=== PATIENT | female | born 1995 | race Caucasian/White ===

== ENCOUNTER → 2018-07-25 16:06 | Outpatient (CLI) | payer OTHER, MEDICAID, SELFPAY ==
[2018-07-25 17:56] LABS: HCG Quantitative /Beta subunit < 2.39 mIU/mL
== END ==
PROVIDERS: Visit Provider Obstetrics & Gynecology
DX: N91.2 Amenorrhea, unspecified (principal)
CPT/HCPCS: 36415; 84702

== ENCOUNTER → 2019-01-08 12:09 | Outpatient (CLI) | payer OTHER, MEDICAID, SELFPAY ==
[2019-01-08 15:09] LABS: Luteinizing Hormone 8.21 mIU/mL
[2019-01-08 15:24] LABS: Free T3, Triiodothyronine Free 4.35 pg/mL (2.77-5.27)
[2019-01-08 15:26] LABS: Prolactin 14.8 ng/mL (3.0-18.6)
[2019-01-08 15:38] LABS: Thyroid Stimulating Hormone 1.59 uIU/mL (0.47-4.68)
[2019-01-08 15:42] LABS: Testosterone 61.5 ng/dL (5.71-77.0)
== END ==
DX: N97.0 Female infertility associated with anovulation (principal)
CPT/HCPCS: 36415; 83001; 83002; 84146; 84403; 84439; 84443; 84481

== ENCOUNTER → 2019-01-23 15:53 | Outpatient (CLI) | payer OTHER, MEDICAID, SELFPAY ==
[2019-01-23 19:24] LABS: Progesterone, Total 1.12 ng/mL
== END ==
DX: N97.0 Female infertility associated with anovulation (principal)
CPT/HCPCS: 36415; 84144

== ENCOUNTER 2019-04-01 17:56 | Emergency (ER) | payer OTHER, MEDICAID, SELFPAY ==
[2019-04-01 17:58] VITALS: BP 116/70; PULSE 86; RESP 18; TEMP 36.4; O2SAT 98
--- NOTE | 2019-04-01 18:04 | DI.US.S_ITS ---
PROCEDURE: US OB <= 14 WEEKS FETUS INDICATIONS: SPOTTING; BACK PAIN OUTSIDE/PRIOR DATING DATA: Last menstrual period (LMP): Unknown. LMP-based estimated date of delivery (LUBNA): Unknown. First dating scan (date and location): 04/01/19. Estimated date of delivery (LUBNA) from first dating scan: n/a . TECHNIQUE: Real-time scanning was performed of the fetuses and maternal pelvic organs, with image documentation. Endovaginal scanning: Performed for better visualization of the fetuses and maternal adnexal structures. COMPARISON: None. FINDINGS: General: Single gestational sac is identified measuring 1.3 cm corresponding to 6 weeks one day. There is no pole or crown-rump length identified. Measurement variability in dating: +/- 4 weeks by LMP, +/- 7 days by mean sac diameter (use before 6 weeks gestation if crown-rump length unable to be measured), +/- 5 days by crown-rump length (up to 8 weeks 6 days gestation), +/- 7 days by crown-rump length (up to 13 weeks 6 days gestation). Maternal organs: Right ovary is not well seen. The left ovary is unremarkable.. Limited images through the kidneys demonstrate no hydronephrosis. IMPRESSION: 1. Intrauterine gestational sac correspond to 6 weeks one day. No pole or crown-rump length is identified. Recommend correlation with beta hCG levels intravertebral imaging followup is recommended to document progression or stability such as blighted ovum. Dictated by: Sunshine De La Cruz M.D. on 04/01/2019 at 18:49 Approved by: Sunshine De La Cruz M.D. on 04/01/2019 at 18:51
--- NOTE | 2019-04-01 18:17 | ED.PREGNANCY ---
HPI - General Chief complaint: Vaginal Bleeding Stated complaint: BACK PAIN SPOTTING Time Seen by Provider: 04/01/19 18:13 Source: patient Mode of arrival: ambulatory Limitations: no limitations History of Present Illness HPI Narrative: 23-year-old female, known presents with some minor spotting and pelvic pain. She is not dizzy nor weak or lightheaded. She denies any dysuria, frequency or urgency. Onset (ago): hour(s) Pain Consistency: constant Location: pelvis Severity: mild Quality: Aching and Cramping Relieving factors: none Exacerbating factors: none Related Data Allergies Allergy/AdvReac Type Severity Reaction Status Date / Time venom-honey bee Allergy Severe SEIZURE-HAWA Verified 01/08/19 11:45 [bee venom (honey bee)] H Review of Systems Constitutional Denies chills, Denies fever(s), Denies lethargy and Denies weakness Eyes Denies change in vision, Denies eye discharge, Denies irritation and Denies loss of vision ENT Ears, Nose, Mouth, and Throat: Denies change in voice, Denies neck pain and Denies sore throat Cardiovascular Denies chest pain, Denies irregular heart rhythm, Denies lightheadedness, Denies palpitations, Denies dyspnea, Denies dyspnea on exertion and Denies orthopnea Respiratory Denies cough, Denies dyspnea, Denies dyspnea on exertion and Denies wheezing Gastrointestinal Gastrointestinal: Reports abdominal pain, Denies change in bowel habits, Denies diarrhea, Denies nausea and Denies vomiting Genitourinary Reports abnormal vaginal bleeding, Denies hematuria, Denies flank pain, Denies urinary incontinence and Denies urinary urgency Musculoskeletal Denies neck pain Integumentary/Breasts Denies pruritus, Denies erythema, Denies rash and Denies wounds Neurologic Denies confusion, Denies loss of vision and Denies weakness Psychiatric Denies anxiety, Denies confusion, Denies depression, Denies homicidal ideation and Denies suicidal ideation Endocrine Denies palpitations Hematologic/Lymphatic Denies easy bruising Allergic/Immunologic Denies wheezing PMFSH - Past Medical History Medical history: Reports non-contributory Surgical history: Reports non-contributory Psychiatric history: Reports no psych history Family history: Reports no significant family history Exam Narrative Exam Narrative: GENERAL: [[age]] year old patient appears stated age. Well-nourished, well-developed patient, in mild distress. HEAD: Atraumatic. Normocephalic. EYES: Pupils equal round and reactive. Extraocular motions intact. No scleral icterus. No injection or drainage. ENT: Nose without bleeding, purulent drainage. Throat without erythema, tonsillar hypertrophy or exudate. Airway patent. NECK: Trachea midline. Non tender CARDIOVASCULAR: Regular rate and rhythm without murmurs, gallops, or rubs. RESPIRATORY: Clear to auscultation. Breath sounds equal bilaterally. No wheezes, rales, or rhonchi. GASTROINTESTINAL: Abdomen soft, non-tender, nondistended. EXTREMITIES: No edema or joint tenderness. BACK: Nontender without deformity or crepitance. No flank tenderness. NEURO: AOx3. SKIN: No rash or erythema of visible areas Initial Vital Signs Initial Vital Signs: Vital Signs Temperature 97.6 F 04/01/19 17:58 Pulse Rate 86 04/01/19 17:58 Respiratory Rate 18 04/01/19 17:58 Blood Pressure 116/70 04/01/19 17:58 Pulse Oximetry 98 04/01/19 17:58 Course Orders Ordered: ED Orders 04/01/19 18:03 ABO RH Type Stat Complete Blood Count AUTO DIFF Stat Comprehensive Metabolic Panel Stat 04/01/19 18:04 US OB <= 14 weeks fetus Stat Beta HCG, Quant [HCG Quantitative] Stat Vital Signs - 8 hr 04/01/19 17:58 Temperature 97.6 F Pulse Rate 86 Respiratory Rate 18 Blood Pressure 116/70 Pulse Oximetry 98 MDM - OB/Uterine Contractions Lab Data Result diagrams: 04/01/19 18:16 04/01/19 18:16 Lab Results 04/01/19 04/01/19 04/01/19 Range/Units 18:16 18:16 18:16 WBC 8.4 (4.5-11.0) X10^3/uL RBC 4.49 (4.0-5.2) X10^6/uL Hgb 13.1 (12.0-16.0) g/dL Hct 39.0 (36-46) % MCV 86.8 (80-100) fL MCH 29.1 (26-34) PG MCHC 33.6 (30-36) % RDW 13.2 (11.6-14.8) % Plt Count 223 (150-400) X10^3/uL Neut % (Auto) 53.4 (50-75) % Lymph % (Auto) 38.7 (25-40) % [place] % (Auto) 6.5 (3-14) % Eos % (Auto) 1.0 L (2-4) % Baso % (Auto) 0.4 (0-2) % Neut # (Auto) 4500 (2620-3752) /uL Lymph # (Auto) 3300 (9957-7539) /uL [place] # (Auto) 500 (0-900) /uL Eos # (Auto) 100 (0-450) /uL Baso # (Auto) 0 (0-100) /uL Sodium 140 (137-145) mmol/L Potassium 3.8 (3.4-5.1) mmol/L Chloride 103 (98-107) mmol/L Carbon Dioxide 25 (22-32) mmol/L BUN 14 (7-17) mg/dL Creatinine 0.60 (0.52-1.04) mg/dL Estimated GFR > 60.0 (>60) mL/min BUN/Creatinine Ratio 23.3 H (6-22) Glucose 106 H (70-100) mg/dL Calcium 9.5 (8.4-10.2) mg/dL Total Bilirubin 0.4 (0.2-1.3) mg/dL AST 21 (14-36) IU/L ALT 27 (9-52) IU/L Alkaline Phosphatase 36 L (38-126) U/L Total Protein 7.7 (6.3-8.2) g/dL Albumin 4.6 (3.5-5.0) g/dL Globulin 3.1 (1.7-4.1) g/dL Albumin/Globulin Ratio 1.5 (1.0-2.8) HCG, Quant mIU/mL Urine RBC (0-5/HPF) Urine WBC (0-5/HPF) Ur Squamous Epith Cells (0-5/HPF) Urine Bacteria (None) Ur Culture Indicated? Blood Type A Positive 04/01/19 04/01/19 Range/Units 18:16 19:10 WBC (4.5-11.0) X10^3/uL RBC (4.0-5.2) X10^6/uL Hgb (12.0-16.0) g/dL Hct (36-46) % MCV (80-100) fL MCH (26-34) PG MCHC (30-36) % RDW (11.6-14.8) % Plt Count (150-400) X10^3/uL Neut % (Auto) (50-75) % Lymph % (Auto) (25-40) % [place] % (Auto) (3-14) % Eos % (Auto) (2-4) % Baso % (Auto) (0-2) % Neut # (Auto) (5922-4030) /uL Lymph # (Auto) (8473-1702) /uL [place] # (Auto) (0-900) /uL Eos # (Auto) (0-450) /uL Baso # (Auto) (0-100) /uL Sodium (137-145) mmol/L Potassium (3.4-5.1) mmol/L Chloride (98-107) mmol/L Carbon Dioxide (22-32) mmol/L BUN (7-17) mg/dL Creatinine (0.52-1.04) mg/dL Estimated GFR (>60) mL/min BUN/Creatinine Ratio (6-22) Glucose (70-100) mg/dL Calcium (8.4-10.2) mg/dL Total Bilirubin (0.2-1.3) mg/dL AST (14-36) IU/L ALT (9-52) IU/L Alkaline Phosphatase (38-126) U/L Total Protein (6.3-8.2) g/dL Albumin (3.5-5.0) g/dL Globulin (1.7-4.1) g/dL Albumin/Globulin Ratio (1.0-2.8) HCG, Quant 87297 mIU/mL Urine RBC 5-10/hpf H (0-5/HPF) Urine WBC 1-5/hpf (0-5/HPF) Ur Squamous Epith Cells 5-10 /hpf H (0-5/HPF) Urine Bacteria Moderate (10-30) H (None) Ur Culture Indicated? Cult not indicated Blood Type Point of Care Testing Test Results Positive Urine Dip Bedside Urine Glucose Negative Bedside Urine Bilirubin + 1 Bedside Urine Ketone +/- 5 Urine Specific [place] 1.030 Bedside Urine Occult Blood +++ Bedside Urine pH 6.0 Bedside Urine Protein - Negative Bedside Urine Urobilinogen - Negative Bedside Urine Nitrite - Negative Bedside Urine Leukocytes - Negative Esterase Imaging Data US - abdomen: Radiologist's impression: [address] [address] Ultrasound Report Signed Patient: Evelyn Bryson RMR#: [id number] : 1995Acct:[id number] Age/Sex: 23 / FDate of Service: 04/01/19 Loc: ED Accession Number: [id number] Procedure: US OB <= 14 weeks fetus Ordering Provider: Jill Solis MD PROCEDURE: US OB <= 14 WEEKS FETUS INDICATIONS: SPOTTING; BACK PAIN OUTSIDE/PRIOR DATING DATA: Last menstrual period (LMP): Unknown. LMP-based estimated date of delivery (LUBNA): Unknown. First dating scan (date and location): 04/01/19. Estimated date of delivery (LUBNA) from first dating scan: n/a . TECHNIQUE: Real-time scanning was performed of the fetuses and maternal pelvic organs, with image documentation. Endovaginal scanning: Performed for better visualization of the fetuses and maternal adnexal structures. COMPARISON: None. FINDINGS: General: Single gestational sac is identified measuring 1.3 cm corresponding to 6 weeks one day. There is no pole or crown-rump length identified. Measurement variability in dating: +/- 4 weeks by LMP, +/- 7 days by mean sac diameter (use before 6 weeks gestation if crown-rump length unable to be measured), +/- 5 days by crown-rump length (up to 8 weeks 6 days gestation), +/- 7 days by crown-rump length (up to 13 weeks 6 days gestation). Maternal organs: Right ovary is not well seen. The left ovary is unremarkable.. Limited images through the kidneys demonstrate no hydronephrosis. IMPRESSION: 1. Intrauterine gestational sac correspond to 6 weeks one day. No pole or crown-rump length is identified. Recommend correlation with beta hCG levels intravertebral imaging followup is recommended to document progression or stability such as blighted ovum. Dictated by: Sunshine De La Cruz M.D. on 04/01/2019 at 18:49 Approved by: Sunshine De La Cruz M.D. on 04/01/2019 at 18:51 Discharge Plan Departure Patient Disposition: Home Clinical Impression: Vaginal bleeding Discharge Date/Time: 04/01/19 20:04 Interventions: ED Discharge Assessment Last Done: 04/01/19 20:00 Instructions: DI for Vaginal Bleeding During Activity Restrictions/Additional Instructions: *You have been diagnosed with [vaginal spotting early in ] *What to do: *Follow up with your primary care provider in 2-3 days, call for an appointment. Let them know you were seen in the Emergency Department and that we ask that you be seen in follow up *Return to ER if you should have any new, worsening or concerning symptoms, such as [increased pain, fever over 101 F, bleeding through more than 1 pad per hour]
[2019-04-01 18:28] LABS: Add Manual Diff / Slide Review NO; Basophils Absolute Auto 0 /uL (0-100); Basophils Percent Auto 0.4 % (0-2); Eosinophils Absolute Auto 100 /uL (0-450); Hemoglobin 13.1 g/dL (12.0-16.0); Lymphocytes Absolute Auto 3300 /uL (1100-4500); Lymphocytes Percent Auto 38.7 % (25-40); Mean Corpuscular HGB Conc 33.6 % (30-36); Mean Corpuscular Hemoglobin 29.1 PG (26-34); Mean Corpuscular Volume 86.8 fL (80-100); Monocytes Absolute Auto 500 /uL (0-900); Monocytes Percent Auto 6.5 % (3-14); Neutrophils Absolute Auto 4500 /uL (1500-7000); Neutrophils Percent Auto 53.4 % (50-75); Platelet Count 223 X10^3/uL (150-400); Red Blood Cell Count 4.49 X10^6/uL (4.0-5.2); Red Cell Distribution Width 13.2 % (11.6-14.8); White Blood Cell Count 8.4 X10^3/uL (4.5-11.0)
[2019-04-01 18:39] LABS: Alanine Aminotransferase 27 IU/L (9-52); Albumin 4.6 g/dL (3.5-5.0); Albumin Globulin Ratio 1.5 (1.0-2.8); Alkaline Phosphatase 36 U/L (38-126); Aspartate Aminotransferase 21 IU/L (14-36); BUN Creatinine Ratio 23.3 (6-22); Bilirubin Total 0.4 mg/dL (0.2-1.3); Blood Urea Nitrogen 14 mg/dL (7-17); Calcium 9.5 mg/dL (8.4-10.2); Carbon Dioxide 25 mmol/L (22-32); Chloride 103 mmol/L (98-107); Estimated Glomerular Filt Rate > 60.0 mL/min (>60); Globulin 3.1 g/dL (1.7-4.1); Glucose 106 mg/dL (70-100); HEMOLYSIS < 15 (0-50); Potassium 3.8 mmol/L (3.4-5.1); Sodium 140 mmol/L (137-145); Total Protein 7.7 g/dL (6.3-8.2)
[2019-04-01 18:56] LABS: HCG Quantitative /Beta subunit 12058 mIU/mL
[2019-04-01 19:10] VITALS: BP 144/80; PULSE 55; RESP 16; O2SAT 94
[2019-04-01 19:48] LABS: RBC Urine 5-10/HPF (0-5/HPF); Squamous Epithelial Cell Urine 5-10 /HPF (0-5/HPF); WBC Urine 1-5/HPF (0-5/HPF)
[2019-04-01 19:49] LABS: Bacteria Urine Moderate (10-30); Culture Indicated Urine Cult Not Indicated
--- NOTE | 2019-04-02 05:54 | ED_ITS ---
HPI - General Chief complaint: Vaginal Bleeding Stated complaint: BACK PAIN SPOTTING Time Seen by Provider: 04/01/19 18:13 Source: patient Mode of arrival: ambulatory Limitations: no limitations History of Present Illness HPI Narrative: 23-year-old female, known presents with some minor spotting and pelvic pain. She is not dizzy nor weak or lightheaded. She denies any dysuria, frequency or urgency. Onset (ago): hour(s) Pain Consistency: constant Location: pelvis Severity: mild Quality: Aching and Cramping Relieving factors: none Exacerbating factors: none Related Data Allergies Allergy/AdvReac Type Severity Reaction Status Date / Time venom-honey bee Allergy Severe SEIZURE-HAWA Verified 01/08/19 11:45 [bee venom (honey bee)] H Review of Systems Constitutional Denies chills, Denies fever(s), Denies lethargy and Denies weakness Eyes Denies change in vision, Denies eye discharge, Denies irritation and Denies loss of vision ENT Ears, Nose, Mouth, and Throat: Denies change in voice, Denies neck pain and Denies sore throat Cardiovascular Denies chest pain, Denies irregular heart rhythm, Denies lightheadedness, Denies palpitations, Denies dyspnea, Denies dyspnea on exertion and Denies orthopnea Respiratory Denies cough, Denies dyspnea, Denies dyspnea on exertion and Denies wheezing Gastrointestinal Gastrointestinal: Reports abdominal pain, Denies change in bowel habits, Denies diarrhea, Denies nausea and Denies vomiting Genitourinary Reports abnormal vaginal bleeding, Denies hematuria, Denies flank pain, Denies urinary incontinence and Denies urinary urgency Musculoskeletal Denies neck pain Integumentary/Breasts Denies pruritus, Denies erythema, Denies rash and Denies wounds Neurologic Denies confusion, Denies loss of vision and Denies weakness Psychiatric Denies anxiety, Denies confusion, Denies depression, Denies homicidal ideation and Denies suicidal ideation Endocrine Denies palpitations Hematologic/Lymphatic Denies easy bruising Allergic/Immunologic Denies wheezing PMFSH - Past Medical History Medical history: Reports non-contributory Surgical history: Reports non-contributory Psychiatric history: Reports no psych history Family history: Reports no significant family history Exam Narrative Exam Narrative: GENERAL: [[age]] year old patient appears stated age. Well-nourished, well-developed patient, in mild distress. HEAD: Atraumatic. Normocephalic. EYES: Pupils equal round and reactive. Extraocular motions intact. No scleral icterus. No injection or drainage. ENT: Nose without bleeding, purulent drainage. Throat without erythema, tonsillar hypertrophy or exudate. Airway patent. NECK: Trachea midline. Non tender CARDIOVASCULAR: Regular rate and rhythm without murmurs, gallops, or rubs. RESPIRATORY: Clear to auscultation. Breath sounds equal bilaterally. No wheezes, rales, or rhonchi. GASTROINTESTINAL: Abdomen soft, non-tender, nondistended. EXTREMITIES: No edema or joint tenderness. BACK: Nontender without deformity or crepitance. No flank tenderness. NEURO: AOx3. SKIN: No rash or erythema of visible areas Initial Vital Signs Initial Vital Signs: Vital Signs Temperature 97.6 F 04/01/19 17:58 Pulse Rate 86 04/01/19 17:58 Respiratory Rate 18 04/01/19 17:58 Blood Pressure 116/70 04/01/19 17:58 Pulse Oximetry 98 04/01/19 17:58 Course Orders Ordered: ED Orders 04/01/19 18:03 ABO RH Type Stat Complete Blood Count AUTO DIFF Stat Comprehensive Metabolic Panel Stat 04/01/19 18:04 US OB <= 14 weeks fetus Stat Beta HCG, Quant [HCG Quantitative] Stat Vital Signs - 8 hr 04/01/19 17:58 Temperature 97.6 F Pulse Rate 86 Respiratory Rate 18 Blood Pressure 116/70 Pulse Oximetry 98 MDM - OB/Uterine Contractions Lab Data Result diagrams: 04/01/19 18:16 04/01/19 18:16 Lab Results 04/01/19 04/01/19 04/01/19 Range/Units 18:16 18:16 18:16 WBC 8.4 (4.5-11.0) X10^3/uL RBC 4.49 (4.0-5.2) X10^6/uL Hgb 13.1 (12.0-16.0) g/dL Hct 39.0 (36-46) % MCV 86.8 (80-100) fL MCH 29.1 (26-34) PG MCHC 33.6 (30-36) % RDW 13.2 (11.6-14.8) % Plt Count 223 (150-400) X10^3/uL Neut % (Auto) 53.4 (50-75) % Lymph % (Auto) 38.7 (25-40) % [place] % (Auto) 6.5 (3-14) % Eos % (Auto) 1.0 L (2-4) % Baso % (Auto) 0.4 (0-2) % Neut # (Auto) 4500 (3803-4069) /uL Lymph # (Auto) 3300 (9583-5707) /uL [place] # (Auto) 500 (0-900) /uL Eos # (Auto) 100 (0-450) /uL Baso # (Auto) 0 (0-100) /uL Sodium 140 (137-145) mmol/L Potassium 3.8 (3.4-5.1) mmol/L Chloride 103 (98-107) mmol/L Carbon Dioxide 25 (22-32) mmol/L BUN 14 (7-17) mg/dL Creatinine 0.60 (0.52-1.04) mg/dL Estimated GFR > 60.0 (>60) mL/min BUN/Creatinine Ratio 23.3 H (6-22) Glucose 106 H (70-100) mg/dL Calcium 9.5 (8.4-10.2) mg/dL Total Bilirubin 0.4 (0.2-1.3) mg/dL AST 21 (14-36) IU/L ALT 27 (9-52) IU/L Alkaline Phosphatase 36 L (38-126) U/L Total Protein 7.7 (6.3-8.2) g/dL Albumin 4.6 (3.5-5.0) g/dL Globulin 3.1 (1.7-4.1) g/dL Albumin/Globulin Ratio 1.5 (1.0-2.8) HCG, Quant mIU/mL Urine RBC (0-5/HPF) Urine WBC (0-5/HPF) Ur Squamous Epith Cells (0-5/HPF) Urine Bacteria (None) Ur Culture Indicated? Blood Type A Positive 04/01/19 04/01/19 Range/Units 18:16 19:10 WBC (4.5-11.0) X10^3/uL RBC (4.0-5.2) X10^6/uL Hgb (12.0-16.0) g/dL Hct (36-46) % MCV (80-100) fL MCH (26-34) PG MCHC (30-36) % RDW (11.6-14.8) % Plt Count (150-400) X10^3/uL Neut % (Auto) (50-75) % Lymph % (Auto) (25-40) % [place] % (Auto) (3-14) % Eos % (Auto) (2-4) % Baso % (Auto) (0-2) % Neut # (Auto) (9216-1865) /uL Lymph # (Auto) (3098-7471) /uL [place] # (Auto) (0-900) /uL Eos # (Auto) (0-450) /uL Baso # (Auto) (0-100) /uL Sodium (137-145) mmol/L Potassium (3.4-5.1) mmol/L Chloride (98-107) mmol/L Carbon Dioxide (22-32) mmol/L BUN (7-17) mg/dL Creatinine (0.52-1.04) mg/dL Estimated GFR (>60) mL/min BUN/Creatinine Ratio (6-22) Glucose (70-100) mg/dL Calcium (8.4-10.2) mg/dL Total Bilirubin (0.2-1.3) mg/dL AST (14-36) IU/L ALT (9-52) IU/L Alkaline Phosphatase (38-126) U/L Total Protein (6.3-8.2) g/dL Albumin (3.5-5.0) g/dL Globulin (1.7-4.1) g/dL Albumin/Globulin Ratio (1.0-2.8) HCG, Quant 19957 mIU/mL Urine RBC 5-10/hpf H (0-5/HPF) Urine WBC 1-5/hpf (0-5/HPF) Ur Squamous Epith Cells 5-10 /hpf H (0-5/HPF) Urine Bacteria Moderate (10-30) H (None) Ur Culture Indicated? Cult not indicated Blood Type Point of Care Testing Test Results Positive Urine Dip Bedside Urine Glucose Negative Bedside Urine Bilirubin + 1 Bedside Urine Ketone +/- 5 Urine Specific [place] 1.030 Bedside Urine Occult Blood +++ Bedside Urine pH 6.0 Bedside Urine Protein - Negative Bedside Urine Urobilinogen - Negative Bedside Urine Nitrite - Negative Bedside Urine Leukocytes - Negative Esterase Imaging Data US - abdomen: Radiologist's impression: [address] [address] Ultrasound Report Signed Patient: Evelyn Bryson RMR#: [id number] : 1995Acct:[id number] Age/Sex: 23 / FDate of Service: 04/01/19 Loc: ED Accession Number: [id number] Procedure: US OB <= 14 weeks fetus Ordering Provider: Jill Solis MD PROCEDURE: US OB <= 14 WEEKS FETUS INDICATIONS: SPOTTING; BACK PAIN OUTSIDE/PRIOR DATING DATA: Last menstrual period (LMP): Unknown. LMP-based estimated date of delivery (LUBNA): Unknown. First dating scan (date and location): 04/01/19. Estimated date of delivery (LUBNA) from first dating scan: n/a . TECHNIQUE: Real-time scanning was performed of the fetuses and maternal pelvic organs, with image documentation. Endovaginal scanning: Performed for better visualization of the fetuses and maternal adnexal structures. COMPARISON: None. FINDINGS: General: Single gestational sac is identified measuring 1.3 cm corresponding to 6 weeks one day. There is no pole or crown-rump length identified. Measurement variability in dating: +/- 4 weeks by LMP, +/- 7 days by mean sac diameter (use before 6 weeks gestation if crown-rump length unable to be measured), +/- 5 days by crown-rump length (up to 8 weeks 6 days gestation), +/- 7 days by crown-rump length (up to 13 weeks 6 days gestation). Maternal organs: Right ovary is not well seen. The left ovary is unremarkable.. Limited images through the kidneys demonstrate no hydronephrosis. IMPRESSION: 1. Intrauterine gestational sac correspond to 6 weeks one day. No pole or crown-rump length is identified. Recommend correlation with beta hCG levels intravertebral imaging followup is recommended to document progression or stability such as blighted ovum. Dictated by: Sunshine De La Cruz M.D. on 04/01/2019 at 18:49 Approved by: Sunshine De La Cruz M.D. on 04/01/2019 at 18:51 Discharge Plan Departure Patient Disposition: Home Clinical Impression: Vaginal bleeding Discharge Date/Time: 04/01/19 20:04 Interventions: ED Discharge Assessment Last Done: 04/01/19 20:00 Instructions: DI for Vaginal Bleeding During Activity Restrictions/Additional Instructions: *You have been diagnosed with [vaginal spotting early in ] *What to do: *Follow up with your primary care provider in 2-3 days, call for an appointment. Let them know you were seen in the Emergency Department and that we ask that you be seen in follow up *Return to ER if you should have any new, worsening or concerning symptoms, such as [increased pain, fever over 101 F, bleeding through more than 1 pad per hour]
== END 2019-04-01 20:04 | disposition home or self-care (01) ==
PROVIDERS: Emergency Medicine; Emergency Provider Emergency Medicine
DX: O20.8 Other hemorrhage in early pregnancy (principal); Z3A.01 Less than 8 weeks gestation of pregnancy
CPT/HCPCS: 36415; 76801; 76817; 80053; 81003; 81015; 81025; 84702; 85025; 86900; 86901; 99283; 99284

== ENCOUNTER 2019-08-11 11:14 | Emergency (ER) | payer OTHER, MEDICAID, SELFPAY ==
[2019-08-11 11:23] VITALS: BP 140/74; PULSE 79; RESP 16; TEMP 36.6; O2SAT 99; BMI 42.5
[2019-08-11 11:40] LABS: RBC Urine None Seen (0-5/HPF)
[2019-08-11 11:53] LABS: Bacteria Urine Moderate (10-30); Squamous Epithelial Cell Urine 5-10 /HPF (0-5/HPF); WBC Urine 1-5/HPF (0-5/HPF)
--- NOTE | 2019-08-11 12:06 | DI.US.S_ITS ---
PROCEDURE: US PELVIC COMPLETE INDICATIONS: PAIN; SAB 3 MONTHS AGO TECHNIQUE: Real-time scanning was performed of the pelvic organs, with image documentation. Additional endovaginal scanning was necessary due to incomplete visualization of the adnexal and endometrial structures by transabdominal scanning. COMPARISON: None. FINDINGS: Transabdominal scanning: Limited scanning through the kidneys shows no hydronephrosis. No pathologic free abdominal or pelvic fluid. Endovaginal scanning: Uterus: Uterus is normal in size at 8.8 x 5.2 x 6.3 cm. The endometrium measures 5.3 mm in combined thickness. No increased vascularity within the endometrium to suggest retained products of conception. Ovaries: The right ovary measures 3.2 x 1.4 x 2.4 cm and has a normal echotexture. The left ovary measures 2.4 x 2.2 x 2.7 cm. A complex cyst is visualized within the left ovary which measures 1.9 x 1.5 x 1.8 cm. The bladder is partially fluid-filled. There is an irregularly marginated 1.2 x 1.4 x 1.1 cm exophytic vascular mass arising from the posterior bladder wall. IMPRESSION: 1. No endometrial abnormality to suggest retained products of conception or other findings to explain patient's pelvic pain. 2. Complex left ovarian cyst suggesting either endometrioma or hemorrhagic cyst. 6-12 month sonographic followup recommended to ensure resolution. 3. Exophytic bladder mass as above. Differential considerations include bladder polyp versus neoplasm. Urologic consultation and direct visualization recommended. Dictated by: Adrianna Britton M.D. on 08/11/2019 at 12:09 Approved by: Adrianna Britton M.D. on 08/11/2019 at 12:22
--- NOTE | 2019-08-11 12:36 | ED.ABDPAIN ---
HPI - Abdominal Pain <Jack MontgomeryLATRELL EstebanP - Last Filed: 08/11/19 20:43> General Chief Complaint: Abdominal Pain Stated Complaint: bad cramp for about a week Time Seen by Provider: 08/11/19 11:43 Source: patient Mode of arrival: Ambulatory Limitations: no limitations History of Present Illness HPI narrative: This is a 23-year-old female, nonsmoker, who presents to ED with her young sons with chief complain of bilateral low abdominal pain and suprapubic pain for 1 week. Patient states had a miscarriage in April 2019 and no further intervention was needed to complete spontaneous AB. Patient reports she had light period in 06/06/19 for 2 days. Since then, she had not had menses and she states usually it has been irregular. Patient reports slight urinary frequency but denies dysuria, hematuria, flank pain. She denies fever, chills, nausea but had 1 episode of emesis this morning. She denies unusual vaginal discharge and is not concerned for STIs. No self-treatment has been attempted at home for this discomfort. Related Data Previous Rx's Medication Instructions Recorded ondansetron 4 mg PO Q6-8H PRN #7 tab 08/11/19 Allergies Allergy/AdvReac Type Severity Reaction Status Date / Time venom-honey bee Allergy Severe SEIZURE-HAWA Verified 08/11/19 11:23 [bee venom (honey bee)] H Review of Systems <Jack MelgarADAMARIS mccall - Last Filed: 08/11/19 20:43> Review of Systems Narrative: General: Denies fever, chills, fatigue, malaise, sweats. HEENT: Denies sinus pain, ear pain, sore throat, difficulty swallowing, dizziness. Respiratory: Denies dyspnea, cough, wheezing, hemoptysis, sputum. Cardiovascular: Denies chest pain, palpitations, orthopnea, edema. Gastrointestinal: Had 1 episode of emesis this morning. Reports bilateral low abdominal pain and suprapubic pain. Denies nausea, diarrhea, constipation, melena. : Reports urinary frequency. Denies dysuria, incontinence, hematuria, urinary retention. Musculoskeletal: Denies weakness, joint pain or bony pain. Skin: Denies rash, skin lesions, or other. Neurologic: Denies weakness, headache, numbness, change in speech, confusion, seizures, incoordination. Psychiatric: No concerning psychosocial issues. 12-point review of systems is negative except for those stated above. Patient History <ADAMARIS Jensen - Last Filed: 08/11/19 20:43> Surgical History Status post delivery (01/06/12) Status post delivery (12/27/14) Status post tonsillectomy and adenoidectomy Social History Smoking Status: Never smoker Smoking Status: Never smoker alcohol intake frequency: 0-2 drinks per day Substance Use Type: does not use Exam <ADAMARIS Jensen - Last Filed: 08/11/19 20:43> Narrative Exam Narrative: GEN: Alert, oriented x 3, well appearing and nourished, and in no acute distress. Head: Normal cephalic, atraumatic. No scalp or temporal tenderness, palpable mass or rash. EYES: Pupils are equal, round, and reactive to light and accommodation. Extraocular muscles are intact bilaterally. There is no subconjunctival hemorrhage, exudate and sclera non-icteric. ENT: Bilateral auditory canals and tympanic membranes clear. Hearing grossly intact. Nose without bleeding, purulent discharge or deviation. Facial sinuses nontender to palpate. Mucous membrane moist, no mucosal lesion. Throat without erythema, tonsillar hypertrophy or exudate. Uvula in midline, airway patent. Neck: Trachea in midline. No JVD, non-tender without lymphadenopathy. No masses or thyroid megaly. Supple, non-tender and no meningeal signs. CARDIAC: Normal regular rate and rhythm without murmurs, gallops, or rubs. No chest wall tenderness. No peripheral edema, cyanosis or pallor. Capillary refill is less than 2 seconds. RESPIRATORY: Lungs are clear to auscultate bilaterally. No cough, wheezes, rales, or rhonchi. No stridor, respiratory distress, increase work of breathing, or accessary muscle used. ABD: Tender to palpate in bilateral low abdomen and suprapubic region. Abdomen soft and non-distended. No guarding or rebound tenderness to palpate. Bowel sounds are normal in all 4 quadrants. There is no palpable masses or organomegaly. EXT: Full painless ROM of all extremities with no loss of sensation, strength, effusion or edema. SKIN: Warm, dry, normal color for patient. No erythema, lesions or rash over visible areas. BACK: Nontender without deformity or crepitance. No flank tenderness. NEUROLOGICAL: Alert and oriented to place, time and person. Sensation and motor function intact bilaterally. No facial droops, dysphasia. PSYCHIATRIC: Good judgement and reason, without hallucinations, abnormal affect or abnormal behaviors during the examination. Initial Vital Signs Initial Vital Signs: Vital Signs Temperature 98 F 08/11/19 11:23 Pulse Rate 79 08/11/19 11:23 Respiratory Rate 16 08/11/19 11:23 Blood Pressure 140/74 08/11/19 11:23 Pulse Oximetry 99 08/11/19 11:23 <Jennifer Beverly DO - Last Filed: 08/12/19 07:34> Initial Vital Signs Initial Vital Signs: Vital Signs Temperature 98 F 08/11/19 11:23 Pulse Rate 79 08/11/19 11:23 Respiratory Rate 16 08/11/19 11:23 Blood Pressure 140/74 08/11/19 11:23 Pulse Oximetry 99 08/11/19 11:23 Scores <ADAMARIS Jensen - Last Filed: 08/11/19 20:43> GCS Irvin coma scale eye opening: Spontaneous [place] coma scale verbal response: Orientated [place] coma scale motor response: Obey commands [place] coma scale total score: 15 Course <ADAMARIS Jensen - Last Filed: 08/11/19 20:43> Orders Ordered: Discontinued Medications Acetaminophen (Tylenol) 650 mg PO NOW ONE Stop: 08/11/19 11:55 Last Admin: 08/11/19 12:40 Dose: 650 mg Documented by: KEIRA Ibuprofen (Advil) 800 mg PO NOW ONE Stop: 08/11/19 11:55 Last Admin: 08/11/19 12:40 Dose: 800 mg Documented by: KEIRA Vital Signs Vital signs: Vital Signs - 8 hr 08/11/19 13:37 08/11/19 14:56 Pulse Rate 79 74 Respiratory Rate 16 16 Blood Pressure [Right Arm] 139/68 156/92 H Pulse Oximetry 100 100 <Jennifer Beverly DO - Last Filed: 08/12/19 07:34> Orders Ordered: Discontinued Medications Acetaminophen (Tylenol) 650 mg PO NOW ONE Stop: 08/11/19 11:55 Last Admin: 08/11/19 12:40 Dose: 650 mg Documented by: KEIRA Ibuprofen (Advil) 800 mg PO NOW ONE Stop: 08/11/19 11:55 Last Admin: 08/11/19 12:40 Dose: 800 mg Documented by: KEIRA Vital Signs Vital signs: Vital Signs - 8 hr 08/11/19 13:37 08/11/19 14:56 Pulse Rate 79 74 Respiratory Rate 16 16 Blood Pressure [Right Arm] 139/68 156/92 H Pulse Oximetry 100 100 MDM - Abdominal Pain <Jack ADAMARIS Potts - Last Filed: 08/11/19 20:43> Differential Diagnosis Differential diagnosis: Likely abdominal pain, acute appendicitis, endometriosis and other (Ovarian cysts, UTI) Medical Records Attestation: I reviewed the patient's medical records. Lab Data Attestation: I reviewed the patient's lab results. Result diagrams: 08/11/19 15:33 08/11/19 15:33 Labs: Lab Results 08/11/19 08/11/19 08/11/19 Range/Units 11:23 15:33 15:33 WBC 5.9 (4.5-11.0) X10^3/uL RBC 4.93 (4.0-5.2) X10^6/uL Hgb 14.0 (12.0-16.0) g/dL Hct 41.4 (36-46) % MCV 83.9 (80-100) fL MCH 28.3 (26-34) PG MCHC 33.8 (30-36) % RDW 12.8 (11.6-14.8) % Plt Count 176 (150-400) X10^3/uL Neut % (Auto) 47.9 L (50-75) % Lymph % (Auto) 44.4 H (25-40) % [place] % (Auto) 6.1 (3-14) % Eos % (Auto) 1.0 L (2-4) % Baso % (Auto) 0.6 (0-2) % Neut # (Auto) 2800 (8721-5509) /uL Lymph # (Auto) 2600 (0703-1701) /uL [place] # (Auto) 400 (0-900) /uL Eos # (Auto) 100 (0-450) /uL Baso # (Auto) 0 (0-100) /uL Sodium 141 (137-145) mmol/L Potassium 3.8 (3.4-5.1) mmol/L Chloride 106 (98-107) mmol/L Carbon Dioxide 24 (22-32) mmol/L BUN 16 (7-17) mg/dL Creatinine 0.70 (0.52-1.04) mg/dL Estimated GFR > 60.0 (>60) mL/min BUN/Creatinine Ratio 22.9 H (6-22) Glucose 83 (70-100) mg/dL Calcium 9.6 (8.4-10.2) mg/dL Urine RBC None seen (0-5/HPF) Urine WBC 1-5/hpf (0-5/HPF) Ur Squamous Epith Cells 5-10 /hpf H (0-5/HPF) Urine Bacteria Moderate (10-30) H (None) Ur Culture Indicated? Culture not indicate Micro UA Comment Point of care testing: Point of Care Testing Test Results Negative Urine Dip Bedside Urine Glucose Negative Bedside Urine Bilirubin - Negative Bedside Urine Ketone - Negative Urine Specific [place] 1.015 Bedside Urine Occult Blood - Negative Bedside Urine pH 7.5 Bedside Urine Protein +/- 15 Bedside Urine Urobilinogen +/- 1mg Bedside Urine Nitrite - Negative Bedside Urine Leukocytes +/- 15 Esterase Imaging Data US-pelvic: Radiologist's impression: [address] [address] Ultrasound Report Signed Patient: Evelyn Bryson R#: [id number] : 1995Acct:[id number] Age/Sex: 23 / FDate of Service: 08/11/19 Loc: ED Accession Number: [id number] Procedure: US pelvic complete Ordering Provider: Jack Potts PROCEDURE: US PELVIC COMPLETE INDICATIONS: PAIN; SAB 3 MONTHS AGO TECHNIQUE: Real-time scanning was performed of the pelvic organs, with image documentation. Additional endovaginal scanning was necessary due to incomplete visualization of the adnexal and endometrial structures by transabdominal scanning. COMPARISON: None. FINDINGS: Transabdominal scanning: Limited scanning through the kidneys shows no hydronephrosis. No pathologic free abdominal or pelvic fluid. Endovaginal scanning: Uterus: Uterus is normal in size at 8.8 x 5.2 x 6.3 cm. The endometrium measures 5.3 mm in combined thickness. No increased vascularity within the endometrium to suggest retained products of conception. Ovaries: The right ovary measures 3.2 x 1.4 x 2.4 cm and has a normal echotexture. The left ovary measures 2.4 x 2.2 x 2.7 cm. A complex cyst is visualized within the left ovary which measures 1.9 x 1.5 x 1.8 cm. The bladder is partially fluid-filled. There is an irregularly marginated 1.2 x 1.4 x 1.1 cm exophytic vascular mass arising from the posterior bladder wall. IMPRESSION: 1. No endometrial abnormality to suggest retained products of conception or other findings to explain patient's pelvic pain. 2. Complex left ovarian cyst suggesting either endometrioma or hemorrhagic cyst. 6-12 month sonographic followup recommended to ensure resolution. 3. Exophytic bladder mass as above. Differential considerations include bladder polyp versus neoplasm. Urologic consultation and direct visualization recommended. Dictated by: Adrianna Britton M.D. on 08/11/2019 at 12:09 Approved by: Adrianna Britton M.D. on 08/11/2019 at 12:22 CT scan - abdomen: Radiologist's impression: [place] [address] CT Scan Report Signed Patient: Evelyn Bryson RMR#: [id number] : 1995Acct:[id number] Age/Sex: 23 / FDate of Service: 08/11/19 Loc: ED Accession Number: [id number] Procedure: CT abdomen pelvis w con Ordering Provider: Jack Potts PROCEDURE: CT ABDOMEN PELVIS W CON INDICATIONS: US-exophytic bladder mass appreciated, bilateral low abd iesha TECHNIQUE: After the administration of intravenous contrast, 5 mm thick sections acquired from the diaphragm to the symphysis. 5 mm coronal and sagittal reformats were acquired. For radiation dose reduction, the following was used: automated exposure control, adjustment of mA and/or kV according to patient size. COMPARISON: None. FINDINGS: Image quality: Excellent. ABDOMEN: Lung bases: Lung bases are clear. Heart size is normal. Solid organs: Liver is normal in size and enhancement. A 7 mm diameter hypodensity is present within hepatic segment V which may represent a simple hepatic cyst but is incompletely characterized. Gallbladder is unremarkable. Biliary system is non dilated. Pancreas enhances normally. Spleen is normal in size and enhancement. No adrenal nodules. Kidneys demonstrate normal size and enhancement, without hydronephrosis. Peritoneum and bowel: Bowel loops demonstrate normal wall thickness and caliber. The appendix is thin walled. No free fluid or air. Nodes and vessels: No retroperitoneal or mesenteric adenopathy by size criteria. Aorta and inferior vena cava are normal in size. Miscellaneous: No ventral hernias. PELVIS: Genitourinary: Bladder wall thickness is normal. An exophytic 0.8 x 1.4 cm mass is present within the left dome of the bladder (series 4, image 39). Uterus is grossly unremarkable. There is a 1.8 cm left ovarian cyst. Miscellaneous: No inguinal hernias or adenopathy. Bones: No suspicious bony lesions. No vertebral body compression fractures. IMPRESSION: 1. No acute intra-abdominal findings. Normal appendix. 2. Exophytic bladder mass as above. Urologic consultation and direct visualization recommended. Dictated by: Adrianna Britton M.D. on 08/11/2019 at 14:04 Approved by: Adrianna Britton M.D. on 08/11/2019 at 14:07 [facility] Narrative Medical decision making narrative: This is a 23-year-old female who presents to ED with bilateral low abdominal discomfort and suprapubic pain with mild urinary frequency. Patient denies constitutional symptoms. Patient had a miscarriage in April 2019 and had very light menses on the following month. Urine HCG was negative. At this time for moderate bacteria and squamous epithelial cells. Pelvic ultrasound was ordered initially to rule out ovarian cyst rupture, torsion, retained product of conception. Ultrasound test shows complex left ovarian cyst also indicated irregularly marginated exophytic vascular mass arising from the posterior bladder wall. In addition, CT of abdomen pelvis test was obtained and it showed normal appendectomy, exophytic 0.8x1.4 cm mass within the left dome of the bladder, 1.8 cm of left ovarian cyst, and 7 mm diameter hypodensity within hepatic segment which may be a simple hepatic cyst without acute intra-abdominal findings. Patient's blood test for CBC and BMP were unremarkable. Urologist specialist, Dr. Deng was consulted and discussed the above findings and advised to follow up by calling the office on Monday to make an appointment for further evaluation and possible treatment for bladder mass. Vital signs been stable in ED. Patient provided with written report of imaging tests to accompany with her. CT and ultrasound images were pushed to used up. Patient advised to take [id number] Tylenol and or Motrin as needed for discomfort. Small dose of Zofran has been transmitted for as needed use for nausea and vomiting. Return precautions were discussed with the patient and patient verbalized understanding. <Jennifer Beverly, DO - Last Filed: 08/12/19 07:34> Lab Data Labs: Lab Results 08/11/19 08/11/19 08/11/19 Range/Units 11:23 15:33 15:33 WBC 5.9 (4.5-11.0) X10^3/uL RBC 4.93 (4.0-5.2) X10^6/uL Hgb 14.0 (12.0-16.0) g/dL Hct 41.4 (36-46) % MCV 83.9 (80-100) fL MCH 28.3 (26-34) PG MCHC 33.8 (30-36) % RDW 12.8 (11.6-14.8) % Plt Count 176 (150-400) X10^3/uL Neut % (Auto) 47.9 L (50-75) % Lymph % (Auto) 44.4 H (25-40) % [place] % (Auto) 6.1 (3-14) % Eos % (Auto) 1.0 L (2-4) % Baso % (Auto) 0.6 (0-2) % Neut # (Auto) 2800 (5928-0248) /uL Lymph # (Auto) 2600 (7424-9138) /uL [place] # (Auto) 400 (0-900) /uL Eos # (Auto) 100 (0-450) /uL Baso # (Auto) 0 (0-100) /uL Sodium 141 (137-145) mmol/L Potassium 3.8 (3.4-5.1) mmol/L Chloride 106 (98-107) mmol/L Carbon Dioxide 24 (22-32) mmol/L BUN 16 (7-17) mg/dL Creatinine 0.70 (0.52-1.04) mg/dL Estimated GFR > 60.0 (>60) mL/min BUN/Creatinine Ratio 22.9 H (6-22) Glucose 83 (70-100) mg/dL Calcium 9.6 (8.4-10.2) mg/dL Urine RBC None seen (0-5/HPF) Urine WBC 1-5/hpf (0-5/HPF) Ur Squamous Epith Cells 5-10 /hpf H (0-5/HPF) Urine Bacteria Moderate (10-30) H (None) Ur Culture Indicated? Culture not indicate Micro UA Comment Point of care testing: Point of Care Testing Test Results Negative Urine Dip Bedside Urine Glucose Negative Bedside Urine Bilirubin - Negative Bedside Urine Ketone - Negative Urine Specific [place] 1.015 Bedside Urine Occult Blood - Negative Bedside Urine pH 7.5 Bedside Urine Protein +/- 15 Bedside Urine Urobilinogen +/- 1mg Bedside Urine Nitrite - Negative Bedside Urine Leukocytes +/- 15 Esterase Discharge Plan Departure Patient Disposition: Home Clinical Impression: Lower abdominal pain, Cyst of left ovary, Bladder mass Discharge Date/Time: 08/11/19 16:14 Instructions: DI for Ovarian Cyst Activity Restrictions/Additional Instructions: You have been diagnosed with [bilateral abdominal pain and suprapubic pain. According to ultrasound and abdominal/pelvic CT, a mass in posterior bladder wall and 1.8cm L ovarian cyst were noted. Incidental finding of hepatic segment cyst from CT. It is suggested that repeat pelvic ultrasound to follow-up on ovarian cyst in 6-12 months.]. What to do: *Take your medications as directed. Please take [id number] Tylenol and or Motrin as needed for discomfort. Zofran has been transmitted to [facility] in [place] for as needed use for nausea and vomiting. *Follow up with your primary care provider in 2-3 days, call for an appointment. Please call [facility] to reestablish PCP on Monday. Please call Urology Clinic on Monday to follow up for an evaluation and possible treatment with the findings from CT and ultrasound. Please take written CT and ultrasound result for this appointment. Let them know you were seen in the ED and that we asked you to be seen in follow up for findings as above. *Return to ED if you have any new, worsening, or concerning symptoms, such as [chest pain, breathing difficulty, unable to tolerate fluids, fever, or any acute concerns]. Prescriptions: New ondansetron 4 mg tablet,disintegrating 4 mg PO Q6-8H PRN (Reason: nausea and vomiting) Qty: 7 RF: 0 Referrals: Audi Deng MD [Non-Staff] -
[2019-08-11] MEDS: ACETAMINOPHEN 325 MG TABLET 650 MG PO (12:40)
[2019-08-11] MEDS: IBUPROFEN 400 MG TABLET 800 MG PO (12:40)
[2019-08-11 13:37] VITALS: BP 139/68; PULSE 79; RESP 16; O2SAT 100
--- NOTE | 2019-08-11 13:44 | DI.CT.S_ITS ---
PROCEDURE: CT ABDOMEN PELVIS W CON INDICATIONS: US-exophytic bladder mass appreciated, bilateral low abd iesha TECHNIQUE: After the administration of intravenous contrast, 5 mm thick sections acquired from the diaphragm to the symphysis. 5 mm coronal and sagittal reformats were acquired. For radiation dose reduction, the following was used: automated exposure control, adjustment of mA and/or kV according to patient size. COMPARISON: None. FINDINGS: Image quality: Excellent. ABDOMEN: Lung bases: Lung bases are clear. Heart size is normal. Solid organs: Liver is normal in size and enhancement. A 7 mm diameter hypodensity is present within hepatic segment V which may represent a simple hepatic cyst but is incompletely characterized. Gallbladder is unremarkable. Biliary system is non dilated. Pancreas enhances normally. Spleen is normal in size and enhancement. No adrenal nodules. Kidneys demonstrate normal size and enhancement, without hydronephrosis. Peritoneum and bowel: Bowel loops demonstrate normal wall thickness and caliber. The appendix is thin walled. No free fluid or air. Nodes and vessels: No retroperitoneal or mesenteric adenopathy by size criteria. Aorta and inferior vena cava are normal in size. Miscellaneous: No ventral hernias. PELVIS: Genitourinary: Bladder wall thickness is normal. An exophytic 0.8 x 1.4 cm mass is present within the left dome of the bladder (series 4, image 39). Uterus is grossly unremarkable. There is a 1.8 cm left ovarian cyst. Miscellaneous: No inguinal hernias or adenopathy. Bones: No suspicious bony lesions. No vertebral body compression fractures. IMPRESSION: 1. No acute intra-abdominal findings. Normal appendix. 2. Exophytic bladder mass as above. Urologic consultation and direct visualization recommended. Dictated by: Adrianna Britton M.D. on 08/11/2019 at 14:04 Approved by: Adrianna Britton M.D. on 08/11/2019 at 14:07
[2019-08-11 14:56] VITALS: BP 156/92; PULSE 74; RESP 16; O2SAT 100
[2019-08-11 15:39] LABS: Add Manual Diff / Slide Review NO; Basophils Absolute Auto 0 /uL (0-100); Basophils Percent Auto 0.6 % (0-2); Eosinophils Absolute Auto 100 /uL (0-450); Hematocrit 41.4 % (36-46); Lymphocytes Absolute Auto 2600 /uL (1100-4500); Lymphocytes Percent Auto 44.4 % (25-40); Mean Corpuscular HGB Conc 33.8 % (30-36); Mean Corpuscular Hemoglobin 28.3 PG (26-34); Mean Corpuscular Volume 83.9 fL (80-100); Monocytes Absolute Auto 400 /uL (0-900); Monocytes Percent Auto 6.1 % (3-14); Neutrophils Absolute Auto 2800 /uL (1500-7000); Neutrophils Percent Auto 47.9 % (50-75); Platelet Count 176 X10^3/uL (150-400); Red Blood Cell Count 4.93 X10^6/uL (4.0-5.2); Red Cell Distribution Width 12.8 % (11.6-14.8); White Blood Cell Count 5.9 X10^3/uL (4.5-11.0)
[2019-08-11 15:51] LABS: BUN Creatinine Ratio 22.9 (6-22); Blood Urea Nitrogen 16 mg/dL (7-17); Calcium 9.6 mg/dL (8.4-10.2); Carbon Dioxide 24 mmol/L (22-32); Chloride 106 mmol/L (98-107); Estimated Glomerular Filt Rate > 60.0 mL/min (>60); Glucose 83 mg/dL (70-100); HEMOLYSIS < 15 (0-50); Potassium 3.8 mmol/L (3.4-5.1); Sodium 141 mmol/L (137-145)
== END 2019-08-11 16:14 | disposition home or self-care (01) ==
PROVIDERS: Emergency Medicine; Emergency Provider Nurse Practitioner Family
DX: N83.202 Unspecified ovarian cyst, left side (principal); N32.9 Bladder disorder, unspecified; R10.30 Lower abdominal pain, unspecified
CPT/HCPCS: 36415; 74177; 76830; 76856; 80048; 81003; 81015; 81025; 85025; 87077; 87086; 87186; 99284; Q9967

== ENCOUNTER 2019-10-05 00:56 | Emergency (ER) | payer OTHER, MEDICAID, SELFPAY ==
[2019-10-05 01:02] VITALS: BP 141/85; PULSE 87; RESP 20; TEMP 36.6; O2SAT 98
--- NOTE | 2019-10-05 01:23 | PC.NURSE ---
Pt with recent bladder surgery on Monday, catheter emptied at 1400 yesterday, no urine output since.
--- NOTE | 2019-10-05 01:31 | ED_ITS ---
HPI - Female Genitourinary General Chief complaint: Urogenital-Female Stated complaint: has catheter, not working (post op) Time Seen by Provider: 10/05/19 01:00 Source: patient Mode of arrival: Ambulatory Limitations: no limitations History of Present Illness HPI Narrative: 24-year-old nonsmoker with history of bladder cancer and recent surgery presents with a Mai catheter problem. She states she was in her [facility] state of health until about 3:00 p.m. when her Mai stopped draining. She has developed increasing suprapubic pain and now it is unbearable. She denies any fever chills nor nausea or vomiting. MD Complaint: other Onset (ago): hour(s) Location: suprapubic Severity: moderate Quality: Aching Duration: constant Relieving factors: none Exacerbating factors: movement Urinary symptoms: Difficulty Urinating Associated symptoms: denies other symptoms Related Data Previous Rx's Medication Instructions Recorded ondansetron 4 mg PO Q6-8H PRN #7 tab 08/11/19 Allergies Allergy/AdvReac Type Severity Reaction Status Date / Time venom-honey bee Allergy Severe SEIZURE-HAWA Verified 08/11/19 11:23 [bee venom (honey bee)] H Review of Systems Constitutional Constitutional: Denies chills, Denies fatigue, Denies fever(s), Denies frequent falls, Denies lethargy and Denies weakness Eyes Eyes: Denies change in vision, Denies eye discharge, Denies irritation and Denies loss of vision ENT Ears, Nose, Mouth, and Throat: Denies change in voice, Denies dizziness, Denies neck pain, Denies sore throat and Denies throat swelling Cardiovascular Cardiovascular: Denies chest pain, Denies irregular heart rhythm, Denies lightheadedness, Denies palpitations, Denies dyspnea, Denies dyspnea on exertion and Denies orthopnea Respiratory Respiratory: Denies cough, Denies dyspnea, Denies dyspnea on exertion and Denies wheezing Gastrointestinal Gastrointestinal: Denies abdominal pain, Denies change in bowel habits, Denies diarrhea, Denies nausea and Denies vomiting Genitourinary Genitourinary: Denies hematuria, Denies flank pain, Denies urinary incontinence and Denies urinary urgency Comments: Mai catheter problem Musculoskeletal Musculoskeletal: Denies back pain, Denies muscle weakness, Denies neck pain, Denies numbness and Denies tingling Integumentary/Breasts Skin/Breast: Denies pruritus, Denies erythema, Denies rash and Denies wounds Neurologic Neurologic: Denies behavioral changes, Denies confusion, Denies dizziness, Denies frequent falls, Denies loss of vision, Denies numbness, Denies tingling and Denies weakness Psychiatric Psychiatric: Denies anxiety, Denies behavioral changes, Denies confusion, Denies depression, Denies homicidal ideation and Denies suicidal ideation Endocrine Endocrine: Denies fatigue, Denies flushing and Denies palpitations Hematologic/Lymphatic Hematologic/Lymphatic: Denies easy bruising Allergic/Immunologic Allergic/Immunologic: Denies urticaria, Denies throat swelling and Denies wheezing Patient History Medical History Eczema (Chronic ~2011) Surgical History Anesthesia (Resolved) Status post delivery (01/06/12) Status post delivery (12/27/14) Status post tonsillectomy and adenoidectomy Family History Father Suicide Mother Mental health problem Brother Asthma Brother Bernardo Roger syndrome Sister No problems noted. Grandfather Dementia Grandmother Cancer Grandfather No problems noted. Grandmother Diabetes mellitus Hypertension History of heart disease alcohol intake frequency: 0-2 drinks per day Substance Use Type: does not use Exam Narrative Exam Narrative: GEN: AOx3 and in mild distress EYES: Pupils are equal, round, and reactive to light and accommodation. Extraoccular muscles are intact bilaterally. There is no subconjunctival hemorrhage or exudate. CHEST: Lungs are clear to auscultation bilaterally and free of wheezes, rales, or rhonchi. Heart rate is regular rhythm, there are no murmurs, clicks, rubs, or gallops. There is no chest wall tenderness. ABD: Abdomen is soft and tender in the suprapubic region. There is no guarding or rebound. Bowel sounds are normal in all 4 quadrants. There is no mass or organomegaly. Mai catheter in place but not draining EXT: Full painless ROM of all extremities with no loss of sensation or strength. SKIN: Warm, pink, and dry. No erythema or rash Initial Vital Signs Initial Vital Signs: Vital Signs Temperature 98 F 10/05/19 01:02 Pulse Rate 87 10/05/19 01:02 Respiratory Rate 20 10/05/19 01:02 Blood Pressure 141/85 H 10/05/19 01:02 Pulse Oximetry 98 10/05/19 01:02 Course Course Course Narrative: Mai catheter flushed and drains 650 cc. Patient has complete resolution of symptoms and is given bedside teaching regarding how to flush. Vital Signs Vital signs: Vital Signs - 8 hr 10/05/19 01:02 Temperature 98 F Pulse Rate 87 Respiratory Rate 20 Blood Pressure 141/85 H Pulse Oximetry 98 Discharge Plan Departure Patient Disposition: Home Clinical Impression: Complication of Mai catheter Qualifiers: Encounter type: initial encounter Qualified Code(s): T83.9XXA - Unspecified complication of genitourinary prosthetic device, implant and graft, initial encounter Instructions: How to Care for Your Mai Catheter -- Female Activity Restrictions/Additional Instructions: *You have been diagnosed with [Mai catheter problem] *What to do: *Take medications as directed *Follow up with your primary care provider in 2-3 days, call for an appointment. Let them know you were seen in the Emergency Department and that we ask that you be seen in follow up *Return to ER if you should have any new, worsening or concerning symptoms Prescriptions: No Action ondansetron 4 mg tablet,disintegrating 4 mg PO Q6-8H PRN (Reason: nausea and vomiting) Qty: 7 RF: 0
--- NOTE | 2019-10-05 01:34 | PC.NURSE ---
Flushed catheter with 60cc of sterile water. Catheter flowing at this time
[2019-10-05 01:45] VITALS: BP 127/73; PULSE 64; RESP 15; O2SAT 99
== END 2019-10-05 01:47 | disposition home or self-care (01) ==
PROVIDERS: Emergency Provider Emergency Medicine
DX: T83.9XXA Unspecified complication of genitourinary prosthetic device, implant and graft, initial encounter (principal)
CPT/HCPCS: 99281

== ENCOUNTER → 2019-10-29 18:35 | Outpatient (CLI) | payer OTHER, MEDICAID, SELFPAY | PROVIDERS: Visit Provider Physician Assistant | DX: R30.0 Dysuria (principal) | CPT/HCPCS: 87086 ==

== ENCOUNTER → 2020-04-22 13:21 | Outpatient (CLI) | payer OTHER, MEDICAID, SELFPAY ==
[2020-04-22 16:50] LABS: Progesterone, Total 4.72 ng/mL
== END ==
PROVIDERS: PCP Nurse Practitioner Family; Referring Provider Obstetrics & Gynecology; Visit Provider Obstetrics & Gynecology
DX: N97.0 Female infertility associated with anovulation (principal)
CPT/HCPCS: 36415; 84144

== ENCOUNTER → 2020-04-29 13:35 | Outpatient (CLI) | payer OTHER, MEDICAID, SELFPAY ==
[2020-04-30 22:50] LABS: Progesterone, Total 8.62 ng/mL
== END ==
PROVIDERS: PCP Nurse Practitioner Family; Referring Provider Obstetrics & Gynecology; Visit Provider Obstetrics & Gynecology
DX: N97.0 Female infertility associated with anovulation (principal)
CPT/HCPCS: 36415; 84144

== ENCOUNTER → 2020-05-25 11:45 | Outpatient (CLI) | payer OTHER, MEDICAID, SELFPAY ==
[2020-05-25 13:52] LABS: Progesterone, Total 1.07 ng/mL
== END ==
PROVIDERS: Obstetrics & Gynecology; PCP Nurse Practitioner Family; Referring Provider Nurse Practitioner Family; Visit Provider Nurse Practitioner Family
DX: N97.0 Female infertility associated with anovulation (principal)
CPT/HCPCS: 36415; 84144

== ENCOUNTER → 2020-05-27 08:20 | Outpatient (CLI) | payer OTHER, MEDICAID, SELFPAY ==
[2020-05-27 10:34] LABS: Hematocrit 36.6 % (36-46); Hemoglobin 12.6 g/dL (12.0-16.0); Mean Corpuscular HGB Conc 34.6 % (30-36); Mean Corpuscular Hemoglobin 28.8 PG (26-34); Mean Corpuscular Volume 83.2 fL (80-100); Platelet Count 207 X10^3/uL (150-400); White Blood Cell Count 5.9 X10^3/uL (4.5-11.0)
[2020-05-27 11:22] LABS: Alanine Aminotransferase 23 IU/L (<35); Albumin Globulin Ratio 1.2 (1.0-2.8); Alkaline Phosphatase 43 U/L (38-126); Aspartate Aminotransferase 21 IU/L (14-36); BUN Creatinine Ratio 19.4 (6-22); Bilirubin Total 0.4 mg/dL (0.2-1.3); Blood Urea Nitrogen 12 mg/dL (7-17); Calcium 9.2 mg/dL (8.4-10.2); Carbon Dioxide 27 mmol/L (22-32); Chloride 103 mmol/L (98-107); Cholesterol 136 mg/dL (140-199); Estimated Glomerular Filt Rate > 60.0 mL/min (>60); Globulin 3.3 g/dL (1.7-4.1); Glucose 80 mg/dL (70-100); HDL Cholesterol 24 mg/dL (40-60); HEMOLYSIS < 15 (0-50); LDL Cholesterol Calculated 61 mg/dL (<100); Potassium 4.3 mmol/L (3.4-5.1); Sodium 138 mmol/L (137-145); Total Protein 7.3 g/dL (6.3-8.2); Triglycerides 254 mg/dL (35-150)
== END ==
PROVIDERS: PCP Nurse Practitioner Family; Referring Provider Nurse Practitioner Family; Visit Provider Nurse Practitioner Family
DX: Z00.00 Encounter for general adult medical examination without abnormal findings (principal); Z13.6 Encounter for screening for cardiovascular disorders
CPT/HCPCS: 36415; 80053; 80061; 85027

== ENCOUNTER → 2020-06-03 08:11 | Outpatient (CLI) | payer OTHER, MEDICAID, SELFPAY ==
--- NOTE | 2020-06-03 08:11 | DI.MRI.S_ITS ---
PROCEDURE: MR ABDOMEN WO CON INDICATIONS: abnormal liver finding CT scan TECHNIQUE: Coronal and axial HASTE, axial Betts of the abdomen. COMPARISON: [facility], CT, CT ABDOMEN PELVIS W CON, 08/11/2019, 14:38. FINDINGS: Image quality: Excellent. Other solid organs: Liver within normal limits in size. Segment 5 moderately T2 hyperintense focus measuring 0.8 cm, (4/28). Gallbladder is not distended. No gallstones. Biliary system is non dilated. Pancreas is normal in morphology. Spleen is normal in size. No adrenal nodule. Both kidneys are normal in size, without hydronephrosis. Nodes and vessels: No retroperitoneal or mesenteric adenopathy by size criteria. Aorta and inferior vena cava are normal in size. Bowel and peritoneum: Unenhanced bowel loops are normal in caliber. No free fluid. Bladder is outside the field of view. Lung bases: No basal pleural effusions. Heart size is normal. Bones and soft tissues: Small fat containing ventral hernia. Bone marrow is of normal overall signal. IMPRESSION: 1. T2 hyperintense observation in segment 5 measuring 0.8 cm. This most likely represents a benign hemangioma given its homogeneous appearance and T2 signal but is incompletely characterized without IV contrast. -recommend characterization with MRI of the liver with IV contrast or three-phase liver CT. 2. No additional hepatic lesions. Dictated by: Ayad Gaytan M.D. on 06/03/2020 at 11:00 Approved by: Ayad Gaytan M.D. on 06/03/2020 at 11:14
== END ==
PROVIDERS: PCP Nurse Practitioner Family; Referring Provider Nurse Practitioner Family; Visit Provider Nurse Practitioner Family
DX: R93.2 Abnormal findings on diagnostic imaging of liver and biliary tract (principal)
CPT/HCPCS: 74181

== ENCOUNTER → 2020-06-24 09:24 | Outpatient (CLI) | payer OTHER, MEDICAID, SELFPAY ==
[2020-06-24 10:26] LABS: Final Volume 0.5 mL; Semen 30 min. Liquification? Yes
== END ==
PROVIDERS: PCP Nurse Practitioner Family; Referring Provider Obstetrics & Gynecology; Visit Provider Obstetrics & Gynecology
DX: N97.0 Female infertility associated with anovulation (principal)
CPT/HCPCS: 58323

== ENCOUNTER 2020-07-12 12:10 | Emergency (ER) | payer OTHER, MEDICAID, SELFPAY ==
[2020-07-12 12:36] VITALS: BP 156/84; PULSE 101; RESP 18; TEMP 36.8; O2SAT 99; BMI 45.4
--- NOTE | 2020-07-12 13:02 | DI.US.S_ITS ---
PROCEDURE: US PELVIC COMPLETE INDICATIONS: IUI 18 DAYS AGO; BLEEDING, CRAMPING TECHNIQUE: Real-time scanning was performed of the pelvic organs, with image documentation. Additional endovaginal scanning was necessary due to incomplete visualization of the adnexal and endometrial structures by transabdominal scanning. COMPARISON: [facility], US, US PELVIC COMPLETE, 06/23/2020, 8:29. FINDINGS: Transabdominal scanning: Limited scanning through the kidneys shows no hydronephrosis. No pathologic free abdominal or pelvic fluid. Endovaginal scanning: Uterus: The uterus measures 9.0 x 5.0 x 5.9 centimeters. Endometrial thickness is 12.4 millimeters. No intrauterine is identified. Ovaries: The right ovary is not identified. The left ovary has a normal size and appearance. Adnexa: No fluid in the adnexa. IMPRESSION: No intrauterine is identified. Given the positive test, differential diagnosis includes completed miscarriage, early versus ectopic . Recommend following quantitative HCGs and follow-up ultrasound. Dictated by: Jose R Rey M.D. on 07/12/2020 at 14:34 Approved by: Jose R Rey M.D. on 07/12/2020 at 14:37
--- NOTE | 2020-07-12 13:05 | ED_ITS ---
HPI - <Jack Ramónstefany [facility] - Last Filed: 07/12/20 16:00> General Chief complaint: Vaginal Bleeding Stated complaint: iui bleeding after Time Seen by Provider: 07/12/20 12:40 Source: patient Mode of arrival: Family Vehicle Limitations: no limitations History of Present Illness HPI Narrative: This is a 24 year female, nonsmoker, who has past medical history significant for bladder cancer and surgery presents to ED with chief complain of vaginal bleeding and left lower quadrant pain which started 5 hours ago. Patient had IU eye procedure done on 06/24/[address] Darling. LMP 06/07/20 - 06/10/20. spon AB 1 last year. Patient reports she had 4 positive home tests this week. Patient reports bright red vaginal bleeding started as spotting and now is more heavy with small clots. Patient denies urinary symptoms like urgency, frequency, dysuria. Patient denies fever, chills, nausea or vomiting. PCP Kyle. Date of Last Menstrual Period: 06/07/20 Related Data Home Medications Medication Instructions Recorded Confirmed multivitamin 1 tab PO DAILY 10/15/19 06/24/20 Previous Rx's Medication Instructions Recorded clomiphene citrate 50 mg tablet 50 mg PO DAILY #5 tab 07/13/20 Allergies Allergy/AdvReac Type Severity Reaction Status Date / Time venom-honey bee Allergy Severe SEIZURE-HAWA Verified 07/12/20 12:41 [bee venom (honey bee)] H Review of Systems <Jack Potts [facility] - Last Filed: 07/12/20 16:00> Review of Systems Narrative: General: Denies fever, chills, fatigue, malaise, sweats. HEENT: Denies sinus pain, ear pain, sore throat, difficulty swallowing, dizziness. Respiratory: Denies dyspnea, cough, wheezing, hemoptysis, sputum. Cardiovascular: Denies chest pain, palpitations, orthopnea, edema. Gastrointestinal: See HPI : See HPI PMFSH - <Jack MelgarLATRELL mccallP - Last Filed: 07/12/20 16:00> Past Medical History Additional medical history: Bladder cancer Surgical history: Reports other (History of bladder cancer surgery) STUNNER ANIMAL history: Reports Spontaneous Date of Last Menstrual Period: 06/07/20 Psychiatric history: Reports no psych history Family History Family history: Reports no significant family history Exam <ADAMARIS Jensen - Last Filed: 07/12/20 16:00> Narrative Exam Narrative: GEN: Alert, oriented x 3, well appearing and nourished and tearful. Head: Normal cephalic, atraumatic. No scalp or temporal tenderness, palpable mass or rash. EYES: Pupils are equal, round, and reactive to light and accommodation. Extraocular muscles are intact bilaterally. There is no subconjunctival hemorrhage, exudate and sclera non-icteric. ENT: Hearing grossly intact. Nose without bleeding, purulent discharge or deviation. Mucous membrane moist, no mucosal lesion. Throat without erythema, tonsillar hypertrophy or exudate. Uvula in midline, airway patent. Neck: Trachea in midline. No JVD, non-tender without lymphadenopathy. No masses or thyroid megaly. Supple, non-tender and no meningeal signs. CARDIAC: Normal regular rate and rhythm without murmurs, gallops, or rubs. No chest wall tenderness. No peripheral edema, cyanosis or pallor. Capillary refill is less than 2 seconds. RESPIRATORY: Lungs are clear to auscultate bilaterally. No cough, wheezes, rales, or rhonchi. No stridor, respiratory distress, increase work of breathing, or accessary muscle used. ABD: Abdomen soft, nontender and non-distended. No guarding or rebound tenderness to palpate. Bowel sounds are normal in all 4 quadrants. There is no palpable masses or organomegaly. EXT: Full painless ROM of all extremities with no loss of sensation, strength, effusion or edema. SKIN: Warm, dry, normal color for patient. No erythema, lesions or rash over visible areas. BACK: Nontender without deformity or crepitance. No flank tenderness. NEUROLOGICAL: Alert and oriented to place, time and person. Sensation and motor function intact bilaterally. No facial droops, dysphasia. Initial Vital Signs Initial Vital Signs: Vital Signs Temperature 98.2 F 07/12/20 12:36 Pulse Rate 101 H 07/12/20 12:36 Respiratory Rate 18 07/12/20 12:36 Blood Pressure 156/84 H 07/12/20 12:36 Pulse Oximetry 99 07/12/20 12:36 <Anna Sawyer DO - Last Filed: 07/17/20 19:20> Initial Vital Signs Initial Vital Signs: Vital Signs Temperature 98.2 F 07/12/20 12:36 Pulse Rate 101 H 07/12/20 12:36 Respiratory Rate 18 07/12/20 12:36 Blood Pressure 156/84 H 07/12/20 12:36 Pulse Oximetry 99 07/12/20 12:36 Scores <[facility] Healthstefany [facility] - Last Filed: 07/12/20 16:00> GCS Irvin coma scale eye opening: Spontaneous Irvin coma scale verbal response: Orientated [place] coma scale motor response: Obey commands Irvin coma scale total score: 15 Course <[facility] Healthstefany [facility] - Last Filed: 07/12/20 16:00> Orders Ordered: ED Orders 07/12/20 12:56 Urine Microscopic Stat 07/12/20 13:02 US pelvic complete Stat 07/12/20 13:15 Complete Blood Count AUTO DIFF Stat HCG Quantitative /Beta subunit Stat Reevaluation(s) Reevaluation #1: Patient reports vaginal bleeding has not slow down but is not extremely heavy either. Patient denies chest pain, breathing difficulty, dizziness. Patient has intermittent nausea but declines any antiemetic medications. Lab tests and ultrasound results shared with the patient. Time: 15:17 Vital Signs Vital signs: Vital Signs - 8 hr 07/12/20 12:36 07/12/20 15:34 Temperature 98.2 F Pulse Rate 101 H 95 H Respiratory Rate 18 15 Blood Pressure 156/84 H 103/67 Pulse Oximetry 99 98 <Anna Sawyer DO - Last Filed: 07/17/20 19:20> Orders Ordered: ED Orders 07/12/20 12:56 Urine Microscopic Stat 07/12/20 13:02 US pelvic complete Stat 07/12/20 13:15 Complete Blood Count AUTO DIFF Stat HCG Quantitative /Beta subunit Stat Vital Signs Vital signs: Vital Signs - 8 hr 07/12/20 12:36 07/12/20 15:34 Temperature 98.2 F Pulse Rate 101 H 95 H Respiratory Rate 18 15 Blood Pressure 156/84 H 103/67 Pulse Oximetry 99 98 MDM - OB/Uterine Contractions <[facility] - Last Filed: 07/12/20 16:00> Differential Diagnosis Differential diagnosis: Likely other (Vaginal bleeding during 1st trimester, ectopic , complete AB) Medical Records Attestation: I reviewed the patient's medical records. Lab Data Attestation: I reviewed the patient's lab results. Result diagrams: 07/12/20 13:15 Labs: Lab Results 07/12/20 07/12/20 07/12/20 Range/Units 12:56 13:15 13:15 WBC 5.6 (4.5-11.0) X10^3/uL RBC 4.58 (4.0-5.2) X10^6/uL Hgb 13.1 (12.0-16.0) g/dL Hct 38.2 (36-46) % MCV 83.5 (80-100) fL MCH 28.6 (26-34) PG MCHC 34.3 (30-36) % RDW 12.7 (11.6-14.8) % Plt Count 219 (150-400) X10^3/uL Neut % (Auto) 50.5 (50-75) % Lymph % (Auto) 41.1 H (25-40) % [place] % (Auto) 6.4 (3-14) % Eos % (Auto) 1.6 L (2-4) % Baso % (Auto) 0.4 (0-2) % Neut # (Auto) 2800 (5665-0703) /uL Lymph # (Auto) 2300 (1102-0229) /uL [place] # (Auto) 400 (0-900) /uL Eos # (Auto) 100 (0-450) /uL Baso # (Auto) 0 (0-100) /uL HCG, Quant < 2.4 mIU/mL Urine RBC 5-10/hpf H (0-5/HPF) Urine WBC 0-1/hpf (0-5/HPF) Ur Squamous Epith Cells 0-1 /hpf (0-5/HPF) Urine Bacteria Few (2-10) H (None) Ur Culture Indicated? Cult not indicated Point of Care Testing Test Results Negative Urine Dip Bedside Urine Glucose Negative Bedside Urine Bilirubin - Negative Bedside Urine Ketone - Negative Urine Specific [place] 1.010 Bedside Urine Occult Blood +++ Bedside Urine pH 6.0 Bedside Urine Protein - Negative Bedside Urine Urobilinogen - Negative Bedside Urine Nitrite - Negative Bedside Urine Leukocytes - Negative Esterase Imaging Data US - SHIP UNLOADER: Radiologist's Impression: [address], [place] [id number] ReportSigned Patient: Kali Bryson RMR#: [id number]: [id number]:[id number]/Sex: 24 / FDate of Service: 07/12/20Loc: EDAccession Number: [id number] Procedure: US pelvic complete Ordering Provider: Jack Potts PROCEDURE: US PELVIC COMPLETE INDICATIONS: IUI 18 DAYS AGO; BLEEDING, CRAMPING TECHNIQUE: Real-time scanning was performed of the pelvic organs, with image documentation. Additional endovaginal scanning was necessary due to incomplete visualization of the adnexal and endometrial structures by transabdominal scanning. COMPARISON: [facility], , US PELVIC COMPLETE, 06/23/2020, 8:29. FINDINGS: Transabdominal scanning: Limited scanning through the kidneys shows no hydronephrosis. No pathologic free abdominal or pelvic fluid. Endovaginal scanning: Uterus: The uterus measures 9.0 x 5.0 x 5.9 centimeters. Endometrial thickness is 12.4 millimeters. No intrauterine is identified. Ovaries: The right ovary is not identified. The left ovary has a normal size and appearance. Adnexa: No fluid in the adnexa. IMPRESSION: No intrauterine is identified. Given the positive test, differential diagnosis includes completed miscarriage, early versus ectopic . Recommend following quantitative HCGs and follow-up ultrasound. Dictated by: Jose R Rey M.D. on 07/12/2020 at 14:34 Approved by: Jose R Rey M.D. on 07/12/2020 at 14:37 MDM Narrative Medical decision making narrative: This is a 24 year female who had for positive test at home this week presents to ED with vaginal bleeding and left lower quadrant pain. She had received IUI [address] Darling and LMP 06/07/2020. G 4 P2 spontaneous AB1. Physical exam on abdomen was unremarkable. No significant tenderness to palpate. Bright red vaginal bleeding started as spotting which has progressively increased with some clots. Patient denies changing pads frequently at this time. CBC with stable H&H. Urine test was negative in ED. no indications for urinary tract infection but shows positive blood. Serum HCG is <2.4. Pelvic ultrasound was ordered and obtained. It indicates no intrauterine identified at this time but given early could not rule out at topic . Given patient has no abdominal pain at this time with stable H&H, considered at topic but is not likely. Patient might had complete AB or false positive home test. Patient advised to follow-up with Dr. Darling next a couple of days for re- evaluation with strict return precautions. Patient verbalized understanding and agreement with the treatment plan. <Anna Sawyer, DO - Last Filed: 07/17/20 19:20> Lab Data Labs: Lab Results 07/12/20 07/12/20 07/12/20 Range/Units 12:56 13:15 13:15 WBC 5.6 (4.5-11.0) X10^3/uL RBC 4.58 (4.0-5.2) X10^6/uL Hgb 13.1 (12.0-16.0) g/dL Hct 38.2 (36-46) % MCV 83.5 (80-100) fL MCH 28.6 (26-34) PG MCHC 34.3 (30-36) % RDW 12.7 (11.6-14.8) % Plt Count 219 (150-400) X10^3/uL Neut % (Auto) 50.5 (50-75) % Lymph % (Auto) 41.1 H (25-40) % [place] % (Auto) 6.4 (3-14) % Eos % (Auto) 1.6 L (2-4) % Baso % (Auto) 0.4 (0-2) % Neut # (Auto) 2800 (6812-9226) /uL Lymph # (Auto) 2300 (2481-2198) /uL [place] # (Auto) 400 (0-900) /uL Eos # (Auto) 100 (0-450) /uL Baso # (Auto) 0 (0-100) /uL HCG, Quant < 2.4 mIU/mL Urine RBC 5-10/hpf H (0-5/HPF) Urine WBC 0-1/hpf (0-5/HPF) Ur Squamous Epith Cells 0-1 /hpf (0-5/HPF) Urine Bacteria Few (2-10) H (None) Ur Culture Indicated? Cult not indicated Point of Care Testing Test Results Negative Urine Dip Bedside Urine Glucose Negative Bedside Urine Bilirubin - Negative Bedside Urine Ketone - Negative Urine Specific [place] 1.010 Bedside Urine Occult Blood +++ Bedside Urine pH 6.0 Bedside Urine Protein - Negative Bedside Urine Urobilinogen - Negative Bedside Urine Nitrite - Negative Bedside Urine Leukocytes - Negative Esterase Discharge Plan Departure Patient Disposition: Home Clinical Impression: Vaginal bleeding Instructions: DI for Vaginal Bleeding During Activity Restrictions/Additional Instructions: You have been diagnosed with [vaginal bleeding. Today's urine test was negative. Very low serum hCG level not consistent with 5 week . Stable blood count. No indications for urinary tract infection. Pelvic ultrasound could not see intrauterine today.]. What to do: *Take your medications as directed. *Follow up with Dr. Darling in 2-3 days, call for an appointment. Let them know you were seen in the ED and that we asked you to be seen in follow up. Please monitor for increasing vaginal bleeding, abdominal pain. Please follow-up pelvic rest until you are seen by Dr. Darling and cleared by her. *Return to ED if you have any new, worsening, or concerning symptoms, such as [worsening pain, increasing vaginal bleeding that you require changing regular pad every hour for 3 hours, chest pain, breathing difficulty, near syncope, fever or any acute concerns]. Prescriptions: No Action clomiphene citrate 50 mg tablet 50 mg PO DAILY Qty: 5 RF: 2 multivitamin [Daily Multi-Vitamin] Tablet 1 tab PO DAILY RF: 0 Referrals: Chance Wright ARNP [Primary Care Provider] - Evelia Darling MD [Physician] - <Anna Sawyer DO - Last Filed: 07/17/20 19:20> Cosign ED Attending Cosignature Attestation: I was immediately available in the department for consultation. This documentation has been reviewed and I agree with assessment and plan. Supervised by Anna Sawyer DO
[2020-07-12 13:26] LABS: Bacteria Urine Few (2-10); Culture Indicated Urine Cult Not Indicated; RBC Urine 5-10/HPF (0-5/HPF); Squamous Epithelial Cell Urine 0-1 /HPF (0-5/HPF); WBC Urine 0-1/HPF (0-5/HPF)
[2020-07-12 13:33] LABS: Add Manual Diff / Slide Review NO; Basophils Absolute Auto 0 /uL (0-100); Basophils Percent Auto 0.4 % (0-2); Eosinophils Absolute Auto 100 /uL (0-450); Eosinophils Percent Auto 1.6 % (2-4); Hematocrit 38.2 % (36-46); Hemoglobin 13.1 g/dL (12.0-16.0); Lymphocytes Absolute Auto 2300 /uL (1100-4500); Lymphocytes Percent Auto 41.1 % (25-40); Mean Corpuscular HGB Conc 34.3 % (30-36); Mean Corpuscular Hemoglobin 28.6 PG (26-34); Mean Corpuscular Volume 83.5 fL (80-100); Monocytes Absolute Auto 400 /uL (0-900); Monocytes Percent Auto 6.4 % (3-14); Neutrophils Absolute Auto 2800 /uL (1500-7000); Neutrophils Percent Auto 50.5 % (50-75); Platelet Count 219 X10^3/uL (150-400); Red Blood Cell Count 4.58 X10^6/uL (4.0-5.2); Red Cell Distribution Width 12.7 % (11.6-14.8); White Blood Cell Count 5.6 X10^3/uL (4.5-11.0)
[2020-07-12 14:03] LABS: HCG Quantitative /Beta subunit < 2.4 mIU/mL
[2020-07-12 15:34] VITALS: BP 103/67; PULSE 95; RESP 15; O2SAT 98
== END 2020-07-12 15:35 | disposition home or self-care (01) ==
PROVIDERS: Emergency Provider Nurse Practitioner Family; PCP Nurse Practitioner Family
DX: O20.9 Hemorrhage in early pregnancy, unspecified (principal); R10.32 Left lower quadrant pain
CPT/HCPCS: 76830; 76856; 81003; 81015; 81025; 84702; 85025; 99283; 99284

== ENCOUNTER → 2020-08-28 10:00 | Outpatient (CLI) | payer SELFPAY ==
[2020-08-28 11:13] LABS: Final Volume 0.5 mL; Semen 30 min. Liquification? Yes
== END ==
PROVIDERS: PCP Nurse Practitioner Family; Referring Provider Obstetrics & Gynecology; Visit Provider Obstetrics & Gynecology
DX: N97.0 Female infertility associated with anovulation (principal)
CPT/HCPCS: 58323

== ENCOUNTER → 2020-09-26 08:47 | Outpatient (CLI) | payer SELFPAY ==
[2020-09-26 09:25] LABS: Initial Volume 1.5 mL; Semen 30 min. Liquification? Yes
[2020-09-26 10:16] LABS: Final Volume 0.5 mL
== END ==
PROVIDERS: PCP Nurse Practitioner Family; Referring Provider Obstetrics & Gynecology; Visit Provider Obstetrics & Gynecology
DX: N97.0 Female infertility associated with anovulation (principal)
CPT/HCPCS: 58323

== ENCOUNTER → 2022-02-18 07:47 | Outpatient (CLI) | payer OTHER, MEDICAID, SELFPAY | PROVIDERS: PCP Nurse Practitioner Family; Visit Provider Nurse Practitioner Family | DX: R30.0 Dysuria (principal) | CPT/HCPCS: 81002; 87077; 87086 ==

== ENCOUNTER → 2022-09-21 06:26 | Outpatient (CLI) | payer OTHER, MEDICAID, SELFPAY ==
--- NOTE | 2022-09-21 06:28 | DI.US.S_ITS ---
PROCEDURE: US PELVIC COMPLETE INDICATIONS: MENORRHAGIA TECHNIQUE: Real-time scanning was performed of the pelvic organs, with image documentation. Additional endovaginal scanning was necessary due to incomplete visualization of the adnexal and endometrial structures by transabdominal scanning. COMPARISON: [facility], US, US PELVIC COMPLETE, 08/11/2022, 16:47. FINDINGS: Uterus: Uterus is anteverted and normal in size at 8.0 x 4.8 x 5.7 cm. The myometrium is homogeneous. The endometrium measures 5.4 mm combined thickness. Ovaries: The right ovary measures 3.2 x 3.1 x 1 point cm, with a calculated ovarian volume of 10.0 cc. The left ovary measures 2.8 x 2.6 x 1.7 cm, with a calculated ovarian volume of 6.6 cc. The ovaries have a normal sonographic appearance. There are fewer than 12 follicles within the right ovary and greater than 12 follicles within the left ovary. No adnexal masses are seen. Other: No pathologic free abdominal or pelvic fluid. IMPRESSION: 1. Greater than 12 follicles within the left ovary. Findings meet the [place] 2003 definition for polycystic ovaries. Findings and the clinical history of ovulatory dysfunction in the absence of hyperandrogenism satisfy [place] criteria, but not the Androgen Excess and PCOS Society guidelines, for the diagnosis of PCOS. Further clinical evaluation is warranted. We strive to produce accurate, complete, and clear reports of imaging services. To assist us in improving patient care, this report was composed using standard report templates and voice recognition software. Therefore, it may contain abnormal punctuation, insertions and/or omissions. Occasional wrong-word or sound-alike substitutions may occur. Though we review the report and make efforts to correct it, we do recommend that the report be read carefully in proper context to recognize any text inaccuracies. Dictated by: Adrianna Britton M.D. on 09/21/2022 at 10:17 Approved by: Adrianna Britton M.D. on 09/21/2022 at 10:23
== END ==
PROVIDERS: PCP Family Medicine; Referring Provider Obstetrics & Gynecology; Visit Provider Obstetrics & Gynecology
DX: N92.0 Excessive and frequent menstruation with regular cycle (principal)
CPT/HCPCS: 76830; 76856

== ENCOUNTER → 2022-10-11 10:06 | Outpatient (CLI) | payer OTHER, MEDICAID, SELFPAY ==
[2022-10-11 11:38] LABS: HCG Quantitative /Beta subunit < 2.4 mIU/mL
== END ==
PROVIDERS: PCP Family Medicine; Referring Provider Obstetrics & Gynecology; Visit Provider Obstetrics & Gynecology
DX: N91.2 Amenorrhea, unspecified (principal)
CPT/HCPCS: 36415; 84702

== ENCOUNTER → 2022-11-10 09:21 | Outpatient (CLI) | payer OTHER, MEDICAID, SELFPAY ==
[2022-11-10 10:58] LABS: HCG Quantitative /Beta subunit 23.2 mIU/mL
== END ==
PROVIDERS: PCP Family Medicine; Referring Provider Obstetrics & Gynecology; Visit Provider Obstetrics & Gynecology
DX: N91.2 Amenorrhea, unspecified (principal)
CPT/HCPCS: 36415; 84702

== ENCOUNTER → 2022-11-11 09:36 | Outpatient (CLI) | payer OTHER, MEDICAID, SELFPAY ==
[2022-11-11 10:51] LABS: HCG Quantitative /Beta subunit 44.2 mIU/mL
== END ==
PROVIDERS: PCP Family Medicine; Referring Provider Obstetrics & Gynecology; Visit Provider Obstetrics & Gynecology
DX: Z34.90 Encounter for supervision of normal pregnancy, unspecified, unspecified trimester (principal)
CPT/HCPCS: 36415; 84702

== ENCOUNTER → 2022-11-16 09:00 | Outpatient (CLI) | payer OTHER, MEDICAID, SELFPAY ==
[2022-11-16 11:13] LABS: HCG Quantitative /Beta subunit 500.3 mIU/mL
== END ==
PROVIDERS: PCP Family Medicine; Referring Provider Obstetrics & Gynecology; Visit Provider Obstetrics & Gynecology
DX: Z34.90 Encounter for supervision of normal pregnancy, unspecified, unspecified trimester (principal)
CPT/HCPCS: 36415; 84702

== ENCOUNTER → 2022-11-22 10:59 | Outpatient (CLI) | payer OTHER, MEDICAID, SELFPAY ==
--- NOTE | 2022-11-22 11:00 | DI.US.S_ITS ---
PROCEDURE: US OB <= 14 WEEKS FETUS INDICATIONS: Viability check OUTSIDE/PRIOR DATING DATA: Last menstrual period (LMP): 10/14/2022. LMP-based estimated date of delivery (LUBNA): 07/21/2023. First dating scan (date and location): 11/22/2022. Estimated date of delivery (LUBNA) from first dating scan: 09/19/2022. TECHNIQUE: Real-time scanning was performed of the fetus and maternal pelvic organs, with image documentation. Endovaginal scanning was also performed to better visualize the fetus and maternal ovaries. COMPARISON: [facility], OB <= 14 WEEKS FETUS, 04/01/2019, 18:26. FINDINGS: Mean gestational sac diameter is 5 weeks and 5 days, 1 cm. No pole is identified. Right ovary is not well visualized. Yolk sac is present. IMPRESSION: Intrauterine gestational sac without pole. Yolk sac is identified. of unknown location: Recommend follow-up imaging and laboratory correlation. We strive to produce accurate, complete, and clear reports of imaging services. To assist us in improving patient care, this report was composed using standard report templates and voice recognition software. Therefore, it may contain abnormal punctuation, insertions and/or omissions. Occasional wrong-word or sound-alike substitutions may occur. Though we review the report and make efforts to correct it, we do recommend that the report be read carefully in proper context to recognize any text inaccuracies. Dictated by: Quinten Ralph M.D. on 11/22/2022 at 12:53 Approved by: Quinten Ralph M.D. on 11/22/2022 at 12:54
== END ==
PROVIDERS: PCP Family Medicine; Referring Provider Obstetrics & Gynecology; Visit Provider Obstetrics & Gynecology
DX: O36.80X0 Pregnancy with inconclusive fetal viability, not applicable or unspecified (principal)
CPT/HCPCS: 76801; 76817

== ENCOUNTER 2022-12-04 17:18 | Emergency (ER) | payer OTHER, MEDICAID, SELFPAY ==
[2022-12-04 17:26] VITALS: BP 171/87; PULSE 91; RESP 16; TEMP 37.1; O2SAT 100; BMI 48.0
--- NOTE | 2022-12-04 17:34 | DI.US.S_ITS ---
PROCEDURE: US OB <= 14 WEEKS FETUS INDICATIONS: SPOTTING OUTSIDE/PRIOR DATING DATA: Last menstrual period (LMP): 10/14/2022. LMP-based estimated date of delivery (LUBNA): 07/21/2023. First dating scan (date and location): 11/23/2019. Estimated date of delivery (LUBNA) from first dating scan: 07/20/2023. TECHNIQUE: Real-time scanning was performed of the fetus and maternal pelvic organs, with image documentation. Endovaginal scanning was also performed to better visualize the fetus and maternal ovaries. COMPARISON: [facility], OB <= 14 WEEKS FETUS, 11/22/2022, 11:07. [facility], PELVIC COMPLETE, 09/27/2022, 16:47. [facility], OB <= 14 WEEKS FETUS, 11/28/2022, 13:34. FINDINGS: Embryo: A single live intrauterine is seen. The measured heart rate is 145 beats per minute. The crown-rump length measures 0.9 cm, corresponding to an estimated gestational age of 6 weeks 6 days. It is too early for detailed anatomic assessment. By visual inspection, the amount of amniotic fluid is within normal limits. No significant findings of subchorionic/perigestational hemorrhage are seen. Maternal organs: The right ovary is not seen. The left ovary is unremarkable. This study is limited by body habitus. IMPRESSION: A single live intrauterine is seen. No significant discrepancy is found between the estimated gestational age based on these images and the estimated gestational age based upon the given date of the last menstrual period. Close clinical followup, with serial beta-hCG and serial ultrasound are recommended, if clinically appropriate. We strive to produce accurate, complete, and clear reports of imaging services. To assist us in improving patient care, this report was composed using standard report templates and voice recognition software. Therefore, it may contain abnormal punctuation, insertions and/or omissions. Occasional wrong-word or sound-alike substitutions may occur. Though we review the report and make efforts to correct it, we do recommend that the report be read carefully in proper context to recognize any text inaccuracies. Dictated by: Guero Cary M.D. on 12/04/2022 at 17:43 Approved by: Guero Cary M.D. on 12/04/2022 at 17:44
[2022-12-04 18:08] LABS: Add Manual Diff / Slide Review NO; Basophils Absolute Auto 0 /uL (0-100); Basophils Percent Auto 0.4 % (0-2); Eosinophils Absolute Auto 100 /uL (0-450); Eosinophils Percent Auto 1.3 % (2-4); Hematocrit 36.9 % (36-46); Hemoglobin 12.6 g/dL (12.0-16.0); Lymphocytes Absolute Auto 2600 /uL (1100-4500); Lymphocytes Percent Auto 36.6 % (25-40); Mean Corpuscular HGB Conc 34.1 % (30-36); Mean Corpuscular Hemoglobin 28.7 PG (26-34); Mean Corpuscular Volume 84.1 fL (80-100); Monocytes Absolute Auto 500 /uL (0-900); Monocytes Percent Auto 7.4 % (3-14); Neutrophils Absolute Auto 3800 /uL (1500-7000); Neutrophils Percent Auto 54.3 % (50-75); Platelet Count 195 X10^3/uL (150-400); Red Blood Cell Count 4.38 X10^6/uL (4.0-5.2); Red Cell Distribution Width 13.7 % (11.6-14.8)
[2022-12-04 18:13] LABS: Alanine Aminotransferase 35 IU/L (<35); Albumin 4.1 g/dL (3.5-5.0); Albumin Globulin Ratio 1.3 (1.0-2.8); Alkaline Phosphatase 36 U/L (38-126); Aspartate Aminotransferase 21 IU/L (14-36); BUN Creatinine Ratio 15.9 (6-22); Bilirubin Total 0.3 mg/dL (0.2-1.3); Blood Urea Nitrogen 10 mg/dL (7-17); Carbon Dioxide 23 mmol/L (22-32); Chloride 104 mmol/L (98-107); Estimated Glomerular Filt Rate > 60 mL/min (>60); Globulin 3.1 g/dL (1.7-4.1); Glucose 128 mg/dL (70-100); HEMOLYSIS < 15 (0-50); Potassium 3.8 mmol/L (3.4-5.1); Sodium 136 mmol/L (137-145); Total Protein 7.2 g/dL (6.3-8.2)
--- NOTE | 2022-12-04 18:38 | ED.GENADULT ---
HPI - General Adult General Chief complaint: OB/Uterine Contractions Stated complaint: possible miscarry ref by obgyn Time Seen by Provider: 12/04/22 18:09 Mode of arrival: Ambulatory History of Present Illness HPI narrative: 27-year-old with 6 week 6 day gestation based on intrauterine insemination currently on progesterone supplementation. Has been spotting for the last month was seen in the gynecology office on November 28 with ultrasound done documenting 6 week 1 day intrauterine gestation with no pole seen. She presents today with additional bleeding. She notes that the prior 10 days of intermittent bleeding been spotting without cramping. Today is episode of bright red bleeding with mild cramping. She notes yesterday she was out all day as her 2 other kids had for soccer games throughout the day. She believes she probably just was more active than she should been and not drinking enough water. She reports no fevers, cough, chills. No flank pain, headaches, vomiting or diarrhea. Related Data Home Medications Medication Instructions Recorded Confirmed aspirin 81 mg tablet,delayed 81 mg PO DAILY 11/23/22 11/28/22 release prenat.vits,luba,[id number] 1 tab PO DAILY 11/23/22 11/28/22 Previous Rx's Medication Instructions Recorded progesterone micronized 200 mg 200 mg PO BEDTIME #30 caps 09/27/22 capsule (Prometrium) Allergies Allergy/AdvReac Type Severity Reaction Status Date / Time venom-honey bee Allergy Severe SEIZURE-HAWA Verified 12/04/22 17:30 [bee venom (honey bee)] H shellfish derived Allergy Intermediate Hives Verified 12/04/22 17:30 Review of Systems Review of Systems Narrative: Pertinent positive and negative findings as per HPI Patient History Medical History Abnormal CT of liver (07/2019) Abnormal MRI of abdomen Bladder cancer (07/2019) Eczema (~2011) UTI (urinary tract infection) Surgical History Anesthesia History of bladder surgery Status post delivery (01/06/12) Status post delivery (12/27/14) Status post tonsillectomy and adenoidectomy Family History Father Suicide Mother Mental health problem Bipolar 1 disorder Brother Asthma Brother Bernardo Roger syndrome Sister No problems noted. Grandfather Dementia Grandmother Breast cancer Grandfather No problems noted. Grandmother Diabetes mellitus Hypertension History of heart disease Grandmother Breast cancer Social History marital status: unmarried,living together number of children: 2 household members: significant other, family (mother) and children lives independently: Yes caregiver/support person: Yes housing: house pets and animals: Yes (3 dogs, 2 cats, hedgehog; kids manage pets.) education level: high school occupational status: employed (memory care health aide) current occupational exposures/hazards: Yes special sajan needs: No travel history: recent (domestic only) seatbelt use: always water heater temp set < 120 deg: Yes working smoke detector in home: Yes fire extinguisher in home: Yes carbon monox detector in home: Yes firearms in home: No do you feel safe at home: Yes Smoking Status: Never smoker second hand exposure: No alcohol intake: former (occasionally when not ) substance use type: marijuana (not while /) during the past year weight has: remained stable well-balanced diet: about half the time daily servings fruits/ve-4 caffeine: Yes (usually 1-2 cups coffee/day) Type(s) of exercise: 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) Smoking Status: Never smoker alcohol intake frequency: 0-2 drinks per day Substance Use Type: does not use Exam Initial Vital Signs Initial Vital Signs: Vital Signs Temperature 98.8 F 12/04/22 17:26 Pulse Rate 91 H 12/04/22 17:26 Respiratory Rate 16 12/04/22 17:26 Blood Pressure 171/87 H 12/04/22 17:26 Pulse Oximetry 100 12/04/22 17:26 Oxygen Delivery Method Room Air 12/04/22 17:26 General: Alert appropriate in no acute distress Respiratory: Able to speak in full sentences, no obvious respiratory distress Skin: No obvious rashes, warm and dry Neurologic: Grossly intact no obvious asymmetries or abnormalities Psych: appropriate insight and affect, cooperative Course Orders Ordered: ED Orders 12/04/22 17:34 US OB <= 14 weeks fetus Stat 12/04/22 17:50 Complete Blood Count AUTO DIFF Stat Comprehensive Metabolic Panel Stat HCG Quantitative /Beta subunit Stat Vital Signs Vital signs: Vital Signs - 8 hr 12/04/22 17:26 Temperature 98.8 F Pulse Rate 91 H Respiratory Rate 16 Blood Pressure 171/87 H Pulse Oximetry 100 Oxygen Delivery Method Room Air Medical Decision Making Lab Data 12/04/22 17:50 12/04/22 17:50 Labs: Lab Results 12/04/22 12/04/22 Range/Units 17:50 17:50 WBC 7.0 (4.5-11.0) X10^3/uL RBC 4.38 (4.0-5.2) X10^6/uL Hgb 12.6 (12.0-16.0) g/dL Hct 36.9 (36-46) % MCV 84.1 (80-100) fL MCH 28.7 (26-34) PG MCHC 34.1 (30-36) % RDW 13.7 (11.6-14.8) % Plt Count 195 (150-400) X10^3/uL Neut % (Auto) 54.3 (50-75) % Lymph % (Auto) 36.6 (25-40) % [place] % (Auto) 7.4 (3-14) % Eos % (Auto) 1.3 L (2-4) % Baso % (Auto) 0.4 (0-2) % Neut # (Auto) 3800 (7179-3627) /uL Lymph # (Auto) 2600 (4337-4532) /uL [place] # (Auto) 500 (0-900) /uL Eos # (Auto) 100 (0-450) /uL Baso # (Auto) 0 (0-100) /uL Sodium 136 L (137-145) mmol/L Potassium 3.8 (3.4-5.1) mmol/L Chloride 104 (98-107) mmol/L Carbon Dioxide 23 (22-32) mmol/L BUN 10 (7-17) mg/dL Creatinine 0.63 (0.52-1.04) mg/dL Estimated GFR > 60 (>60) mL/min BUN/Creatinine Ratio 15.9 (6-22) Glucose 128 H (70-100) mg/dL Calcium 9.0 (8.4-10.2) mg/dL Total Bilirubin 0.3 (0.2-1.3) mg/dL AST 21 (14-36) IU/L ALT 35 H (<35) IU/L Alkaline Phosphatase 36 L (38-126) U/L Total Protein 7.2 (6.3-8.2) g/dL Albumin 4.1 (3.5-5.0) g/dL Globulin 3.1 (1.7-4.1) g/dL Albumin/Globulin Ratio 1.3 (1.0-2.8) MDM Narrative Medical decision making narrative: CC: Spotting in early Complicating co-morbidities: Prior miscarriages, intrauterine insemination with progesterone supplementation Data collected from: patient Medical records reviewed: [employer] notes from October and November are reviewed. Differential considered: Miscarriage, ultrasound was already been done and intrauterine has been confirmed so ectopic is less likely. Spotting in early , vaginal infection, pelvic inflammatory disease Exam documented above, pertinent findings include: Exam is benign. Pelvic ultrasound shows viable intrauterine fetus 6 weeks 6 days with no obvious abnormalities or placental hemorrhage is appreciated Lab Test results independently reviewed as above. Pertinent findings: Normal H&H. Quantitative hCG is pending and will follow-up with her product designer Imaging studies independently reviewed: Ultrasound confirms 6 week 6 day intrauterine with heartbeat. Discussion: Early with spotting and slight cramping. Significant anxiety. Reassurance is given at this point that it is a viable that is growing appropriately when compared to prior ultrasounds. She has follow-up scheduled with her OBGYN on December 20. Reassurance is given along with continued instructions to decrease overall physical activity slightly and continue with hydration. We did review the possibility that miscarriage can still take place given the bleeding and cramping along with the very positive finding of appropriate growth within the last 5 days. Questions are answered and she is safe for discharge home Discharge Plan Departure Patient Disposition: Home Clinical Impression: Spotting in early Intrauterine normal Qualifiers: Trimester: first trimester Qualified Code(s): Z34.91 - Encounter for supervision of normal , unspecified, first trimester Instructions: DI for Miscarriage Activity Restrictions/Additional Instructions: Thank you for coming in today It is always concerning when there is bleeding and cramping with early . Your ultrasound today was quite reassuring. Showed a viable 6 week 6 day with a heartbeat. This is appropriate growth and change from the ultrasound done with Dr. Darling last week. At this time, there is nothing else to add were to do. Please continue with gentle activity, make sure that you are taking care of herself with appropriate nutrition and hydration. Please keep your follow-up with Dr. Darling If you find that you are getting worse or develop any new symptoms, please feel free to return to the emergency department for further evaluation. Prescriptions: No Action progesterone micronized [Prometrium] 200 mg capsule 200 mg PO BEDTIME Qty: 30 6RF prenat.vits,luba,yza-kinl-shssn Tablet 1 tab PO DAILY aspirin 81 mg tablet,delayed release (DR/EC) 81 mg PO DAILY Referrals: Griffin Salcedo DO [Primary Care Provider] - Stand Alone Forms: Patient Portal/API
[2022-12-04 18:54] LABS: HCG Quantitative /Beta subunit 48233 mIU/mL
[2022-12-04 18:55] VITALS: BP 157/76; PULSE 88; RESP 16; O2SAT 99
== END 2022-12-04 18:55 | disposition home or self-care (01) ==
PROVIDERS: Emergency Medicine; Emergency Provider Emergency Medicine; PCP Family Medicine
DX: O46.91 Antepartum hemorrhage, unspecified, first trimester (principal); Z3A.01 Less than 8 weeks gestation of pregnancy
CPT/HCPCS: 36415; 76801; 76817; 80053; 84702; 85025; 99283; 99284

== ENCOUNTER 2022-12-22 18:08 | Emergency (ER) | payer OTHER, MEDICAID, SELFPAY ==
[2022-12-22 18:46] VITALS: BP 147/74; PULSE 83; RESP 18; TEMP 36.8; O2SAT 99; BMI 47.5
--- NOTE | 2022-12-22 18:53 | DI.US.S_ITS ---
PROCEDURE: US OB <= 14 WEEKS FETUS INDICATIONS: 9.5 WEEK VAGINAL BLEEDING OUTSIDE/PRIOR DATING DATA: Last menstrual period (LMP): 10/14/2022. LMP-based estimated date of delivery (LUBNA): 07/21/2023. First dating scan (date and location): 11/22/2022. Estimated date of delivery (LUBNA) from first dating scan: 07/20/2023. TECHNIQUE: Real-time scanning was performed of the fetus and maternal pelvic organs, with image documentation. Endovaginal scanning was also performed to better visualize the fetus and maternal ovaries. COMPARISON: [facility], , OB <= 14 WEEKS FETUS, 12/20/2022, 11:48. FINDINGS: Embryo: Single live intrauterine is identified with crown-rump length measuring 3.2 cm corresponding to 10 weeks 1 day. This is compared to dating by [facility] ultrasound of 9 weeks 6 days. Heart rate: 182 beats per minute Maternal organs: Ovaries are unremarkable. IMPRESSION: Single live intrauterine with ultrasound gestational age today of 10 weeks 1 day. We strive to produce accurate, complete, and clear reports of imaging services. To assist us in improving patient care, this report was composed using standard report templates and voice recognition software. Therefore, it may contain abnormal punctuation, insertions and/or omissions. Occasional wrong-word or sound-alike substitutions may occur. Though we review the report and make efforts to correct it, we do recommend that the report be read carefully in proper context to recognize any text inaccuracies. Dictated by: Sunshine De La Cruz M.D. on 12/22/2022 at 19:33 Approved by: Sunshine De La Cruz M.D. on 12/22/2022 at 19:34
[2022-12-22 19:17] LABS: Add Manual Diff / Slide Review NO; Basophils Absolute Auto 0 /uL (0-100); Basophils Percent Auto 0.4 % (0-2); Eosinophils Absolute Auto 100 /uL (0-450); Eosinophils Percent Auto 1.3 % (2-4); Hematocrit 36.6 % (36-46); Hemoglobin 12.7 g/dL (12.0-16.0); Lymphocytes Absolute Auto 3400 /uL (1100-4500); Mean Corpuscular HGB Conc 34.5 % (30-36); Mean Corpuscular Hemoglobin 29.1 PG (26-34); Mean Corpuscular Volume 84.2 fL (80-100); Monocytes Absolute Auto 700 /uL (0-900); Monocytes Percent Auto 7.3 % (3-14); Neutrophils Absolute Auto 4800 /uL (1500-7000); Platelet Count 238 X10^3/uL (150-400); Red Blood Cell Count 4.35 X10^6/uL (4.0-5.2); Red Cell Distribution Width 13.4 % (11.6-14.8)
[2022-12-22 19:26] LABS: BUN Creatinine Ratio 16.9 (6-22); Blood Urea Nitrogen 11 mg/dL (7-17); Calcium 9.2 mg/dL (8.4-10.2); Carbon Dioxide 23 mmol/L (22-32); Chloride 103 mmol/L (98-107); Estimated Glomerular Filt Rate > 60 mL/min (>60); Glucose 109 mg/dL (70-100); HEMOLYSIS < 15 (0-50); Potassium 3.9 mmol/L (3.4-5.1); Sodium 136 mmol/L (137-145)
[2022-12-22 20:09] LABS: HCG Quantitative /Beta subunit 80106 mIU/mL
--- NOTE | 2022-12-22 21:02 | PC.NURSE ---
PT reports no longer bleeding. Reports one gush with one blood clot. Denies cramping.
[2022-12-22 21:06] VITALS: BP 164/69; PULSE 94; RESP 15; O2SAT 94
--- NOTE | 2022-12-22 23:09 | ED.PREGNANCY ---
HPI - General Chief complaint: Vaginal Bleeding Stated complaint: thinks is having a miscarriage Time Seen by Provider: 12/22/22 18:53 Source: patient Mode of arrival: Ambulatory Limitations: no limitations History of Present Illness HPI Narrative: This is a 27-year-old female who presents with complaint of large clots of bright red blood earlier today patient states she is had some spotting on and off throughout this . She was peeling potatoes today when she felt a large gush a large clot which he states was bright red and she has not had any persistent bleeding since then. She denies abdominal pain or cramping. No lightheadedness, no chest pain, no shortness of breath, she is had some mild nausea but not as intense as her other pregnancies. No vomiting. No diarrhea, constipation or other urinary symptoms. Patient states her blood pressures been a little bit on the edge they have been just monitoring it she has not been started. She has had 6 prior pregnancies only to gone to completion she states she is had 4 prior miscarriages. Patient follows with Dr. Darling she does not use tobacco, no alcohol, no illicit. She has been following regularly with them. She denies other medical issues. She is accompanied by her . Related Data Home Medications Medication Instructions Recorded Confirmed aspirin 81 mg tablet,delayed 81 mg PO DAILY 11/23/22 12/20/22 release prenat.vits,luba,[id number]-[id number] 1 tab PO DAILY 11/23/22 12/20/22 Previous Rx's Medication Instructions Recorded progesterone micronized 200 mg 200 mg PO BEDTIME #30 caps 09/27/22 capsule (Prometrium) Allergies Allergy/AdvReac Type Severity Reaction Status Date / Time venom-honey bee Allergy Severe SEIZURE-HAWA Verified 12/22/22 18:50 [bee venom (honey bee)] H shellfish derived Allergy Intermediate Hives Verified 12/22/22 18:50 Review of Systems Review of Systems ROS Unobtainable: All systems reviewed & are unremarkable except as noted in HPI and below PMFSH - Past Medical History Medical history: Reports non-contributory Additional medical history: Bladder cancer Surgical history: Reports other Psychiatric history: Reports no psych history Family History Family history: Reports no significant family history Exam Narrative Exam Narrative: GENERAL: Alert and oriented x three, well-appearing female in mild distress. HEENT: Head normocephalic, atraumatic, EOMI, pupils reactive, face symmetric, moist mucous membranes NECK: Supple, full range of motion CARDIOVASCULAR: Regular rate and rhythm without murmurs, rubs or gallops. RESPIRATORY: Breath sounds equal bilaterally, no wheezes rales or rhonchi. ABDOMEN: Soft, nontender. Normoactive bowel sounds all 4 quadrants. No guarding or rebound, rigidity, no mass : No CVA tenderness EXTREMITIES: Normal range of motion, no clubbing or edema. Neurovascularly intact NEUROLOGICAL: Cranial nerves II through XII grossly intact. Moving all extremities SKIN: Warm, dry, no petechiae, no rashes or lesions. Initial Vital Signs Initial Vital Signs: Vital Signs Temperature 98.3 F 12/22/22 18:46 Pulse Rate 83 12/22/22 18:46 Respiratory Rate 18 12/22/22 18:46 Blood Pressure 147/74 H 12/22/22 18:46 Pulse Oximetry 99 12/22/22 18:46 Oxygen Delivery Method Room Air 12/22/22 18:46 Course Orders Ordered: ED Orders 12/22/22 18:53 US OB <= 14 weeks fetus Stat 12/22/22 19:00 ABO RH Type Stat BMP [Basic Metabolic Panel] Stat CBC Auto Diff [Complete Blood Count AUTO DIFF] Stat HCG Quantitative /Beta subunit Stat Vital Signs Vital signs: Vital Signs - 8 hr 12/22/22 18:46 12/22/22 21:06 Temperature 98.3 F Pulse Rate 83 94 H Respiratory Rate 18 15 Blood Pressure 147/74 H 164/69 H Pulse Oximetry 99 94 Oxygen Delivery Method Room Air Room Air MDM - OB/Uterine Contractions Lab Data 12/22/22 19:00 12/22/22 19:00 Labs: Lab Results 12/22/22 12/22/22 12/22/22 Range/Units 19:00 19:00 19:00 WBC 9.0 (4.5-11.0) X10^3/uL RBC 4.35 (4.0-5.2) X10^6/uL Hgb 12.7 (12.0-16.0) g/dL Hct 36.6 (36-46) % MCV 84.2 (80-100) fL MCH 29.1 (26-34) PG MCHC 34.5 (30-36) % RDW 13.4 (11.6-14.8) % Plt Count 238 (150-400) X10^3/uL Neut % (Auto) 53.0 (50-75) % Lymph % (Auto) 38.0 (25-40) % [place] % (Auto) 7.3 (3-14) % Eos % (Auto) 1.3 L (2-4) % Baso % (Auto) 0.4 (0-2) % Neut # (Auto) 4800 (4784-6131) /uL Lymph # (Auto) 3400 (9726-9813) /uL [place] # (Auto) 700 (0-900) /uL Eos # (Auto) 100 (0-450) /uL Baso # (Auto) 0 (0-100) /uL Sodium 136 L (137-145) mmol/L Potassium 3.9 (3.4-5.1) mmol/L Chloride 103 (98-107) mmol/L Carbon Dioxide 23 (22-32) mmol/L BUN 11 (7-17) mg/dL Creatinine 0.65 (0.52-1.04) mg/dL Estimated GFR > 60 (>60) mL/min BUN/Creatinine Ratio 16.9 (6-22) Glucose 109 H (70-100) mg/dL Calcium 9.2 (8.4-10.2) mg/dL HCG, Quant 77782 mIU/mL Blood Type A Positive Imaging Data US - OB: Radiologist's Impression: [place] [address] Ultrasound Report Signed Patient: Kali Bryson MR#: [id number] : 1995 Acct:[id number] Age/Sex: 27 / F Date of Service: 12/22/22 Loc: ED Accession Number: [id number] ?? Procedure: US OB <= 14 weeks fetus Ordering Provider: Anna Sawyer D.O. PROCEDURE:? US OB <= 14 WEEKS FETUS ? INDICATIONS:? 9.5 WEEK VAGINAL BLEEDING ? OUTSIDE/PRIOR DATING DATA:? Last menstrual period (LMP):? 10/14/2022.? LMP-based estimated date of delivery (LUBNA):? 07/21/2023.? First dating scan (date and location):? 11/22/2022.? Estimated date of delivery (LUBNA) from first dating scan:? 07/20/2023. ? TECHNIQUE:? Real-time scanning was performed of the fetus and maternal pelvic organs, with image documentation.? Endovaginal scanning was also performed to better visualize the fetus and maternal ovaries.? ? COMPARISON:? [facility], , OB <= 14 WEEKS FETUS, 12/20/2022, 11:48. ? FINDINGS:? ? Embryo:? Single live intrauterine is identified with crown-rump length measuring 3.2 cm corresponding to 10 weeks 1 day.? This is compared to dating by [facility] ultrasound of 9 weeks 6 days. Heart rate:? 182 beats per minute ? Maternal organs:? Ovaries are unremarkable. ? ? ? IMPRESSION:? ? Single live intrauterine with ultrasound gestational age today of 10 weeks 1 day. ? We strive to produce accurate, complete, and clear reports of imaging services. To assist us in improving patient care, this report was composed using standard report templates and voice recognition software. Therefore, it may contain abnormal punctuation, insertions and/or omissions. Occasional wrong-word or sound-alike substitutions may occur. Though we review the report and make efforts to correct it, we do recommend that the report be read carefully in proper context to recognize any text inaccuracies. ? Dictated by: Sunshine De La Cruz M.D. on 12/22/2022 at 19:33 ? ? Approved by: Sunshine De La Cruz M.D. on 12/22/2022 at 19:34?? MDM Narrative Medical decision making narrative: This is a 27-year-old female with acute vaginal bleeding patient has been having some spotting throughout but had a larger amount with a large clot today. Blood pressures been up and down was 120 prior to discharge but has not been persistently elevated states they are monitoring regularly with obese. Ob ultrasound shows her at 10 weeks and 1 day, heart rates appropriate no other changes. She is not had any persistent bleeding today no abdominal pain. Patient's labs are overall reassuring she is Rh positive and not requiring RhoGAM. Patient plans to follow up with Dr. Darling her OBGYN here locally. Discharge Plan Departure Patient Disposition: Home Clinical Impression: Vaginal bleeding in Instructions: DI for Vaginal Bleeding During Activity Restrictions/Additional Instructions: Please follow-up with your provider. Call to see they would like your next appointment. Your ultrasound today showed you to be at 10 weeks and 1 day. I would recommend pelvic rest, no tampons, no heavy lifting, no sexual activity until cleared by your OBGYN or provider. You may take to a 1000 mg every 6 hours for any pain. Please return for rapidly worsening bleeding going through more than 1 pad an hour, lightheadedness or passing out, severe abdominal back or flank pain, persistent vomiting, new chest pain or shortness of breath or other new or concerning changes. Prescriptions: No Action progesterone micronized [Prometrium] 200 mg capsule 200 mg PO BEDTIME Qty: 30 6RF prenat.vits,luba,[id number] Tablet 1 tab PO DAILY aspirin 81 mg tablet,delayed release (DR/EC) 81 mg PO DAILY Referrals: Evelia Darling MD [Physician] - Griffin Salcedo DO [Primary Care Provider] - Stand Alone Forms: Patient Portal/API
[2022-12-22 23:31] VITALS: BP 128/77; PULSE 79; RESP 18; O2SAT 98
== END 2022-12-22 23:39 | disposition home or self-care (01) ==
PROVIDERS: Emergency Provider Emergency Medicine; PCP Family Medicine
DX: O46.91 Antepartum hemorrhage, unspecified, first trimester (principal); Z3A.10 10 weeks gestation of pregnancy
CPT/HCPCS: 36415; 76801; 76817; 80048; 84702; 85025; 86900; 86901; 99283; 99284

== ENCOUNTER 2022-12-27 19:22 | Emergency (ER) | payer OTHER, MEDICAID, SELFPAY ==
--- NOTE | 2022-12-27 20:05 | DI.US.S_ITS ---
PROCEDURE: US OB <= 14 WEEKS FETUS INDICATIONS: BLEEDING OUTSIDE/PRIOR DATING DATA: Last menstrual period (LMP): 10/14/2022 LMP-based estimated date of delivery (LUBNA): 07/21/2023. First dating scan (date and location): 11/22/2022. Estimated date of delivery (LUBNA) from first dating scan: 07/20/2023. TECHNIQUE: Real-time scanning was performed of the fetus and maternal pelvic organs, with image documentation. Endovaginal scanning was also performed to better visualize the fetus and maternal ovaries. COMPARISON: [facility], OB <= 14 WEEKS FETUS, 11/22/2022, 11:07. [facility], OB <= 14 WEEKS FETUS, 11/28/2022, 13:34. [facility], OB <= 14 WEEKS FETUS, 12/04/2022, 18:00. [facility], OB <= 14 WEEKS FETUS, 12/20/2022, 11:48. [facility], OB <= 14 WEEKS FETUS, 12/22/2022, 19:10. FINDINGS: Embryo: There is an intrauterine with the pole demonstrating a crown-rump length of 4.0 cm corresponding to gestational age of 10 weeks 6 days. There is heart motion with a rate of 165 beats per minute. Expected gestational age from LMP: 10 weeks 4 days. There is a hypoechoic perigestational subchorionic hematoma measuring approximately 2.8 x 1.2 x 3.2 cm. Maternal organs: Ovaries were not discretely visualized. IMPRESSION: 1. Single living intrauterine demonstrating appropriate interval growth with measurements corresponding to gestational age of 10 weeks 6 days, concordant with expected gestational age of 10 weeks 4 days based on LMP. 2. Small subchorionic hematoma demonstrated. We strive to produce accurate, complete, and clear reports of imaging services. To assist us in improving patient care, this report was composed using standard report templates and voice recognition software. Therefore, it may contain abnormal punctuation, insertions and/or omissions. Occasional wrong-word or sound-alike substitutions may occur. Though we review the report and make efforts to correct it, we do recommend that the report be read carefully in proper context to recognize any text inaccuracies. Dictated by: Ian Gay M.D. on 12/27/2022 at 22:36 Approved by: Ian Gay M.D. on 12/27/2022 at 22:41
[2022-12-27 20:06] VITALS: BP 169/90; PULSE 86; RESP 16; TEMP 36.6; O2SAT 99; BMI 47.5
[2022-12-27 20:46] LABS: Add Manual Diff / Slide Review NO; Basophils Absolute Auto 0 /uL (0-100); Basophils Percent Auto 0.4 % (0-2); Eosinophils Absolute Auto 100 /uL (0-450); Hematocrit 39.2 % (36-46); Hemoglobin 13.4 g/dL (12.0-16.0); Lymphocytes Absolute Auto 3100 /uL (1100-4500); Mean Corpuscular HGB Conc 34.3 % (30-36); Mean Corpuscular Hemoglobin 28.6 PG (26-34); Mean Corpuscular Volume 83.4 fL (80-100); Monocytes Absolute Auto 500 /uL (0-900); Monocytes Percent Auto 6.3 % (3-14); Neutrophils Absolute Auto 4600 /uL (1500-7000); Neutrophils Percent Auto 55.3 % (50-75); Platelet Count 234 X10^3/uL (150-400); Red Cell Distribution Width 13.3 % (11.6-14.8); White Blood Cell Count 8.3 X10^3/uL (4.5-11.0)
[2022-12-27 20:58] LABS: Alanine Aminotransferase 26 IU/L (<35); Albumin 4.4 g/dL (3.5-5.0); Albumin Globulin Ratio 1.3 (1.0-2.8); Alkaline Phosphatase 42 U/L (38-126); Aspartate Aminotransferase 21 IU/L (14-36); BUN Creatinine Ratio 24.5 (6-22); Bilirubin Total 0.3 mg/dL (0.2-1.3); Blood Urea Nitrogen 13 mg/dL (7-17); Calcium 8.9 mg/dL (8.4-10.2); Carbon Dioxide 22 mmol/L (22-32); Chloride 105 mmol/L (98-107); Estimated Glomerular Filt Rate > 60 mL/min (>60); Globulin 3.3 g/dL (1.7-4.1); Glucose 93 mg/dL (70-100); HEMOLYSIS < 15 (0-50); Potassium 3.9 mmol/L (3.4-5.1); Sodium 136 mmol/L (137-145); Total Protein 7.7 g/dL (6.3-8.2)
--- NOTE | 2022-12-27 21:09 | PC.NURSE ---
1 episode of small - medium amount of bright red blood with small blood clots while cooking dinner this evening. Happened before x1 week ago. Pt is currently no longer having vaginal bleeding. Denies cramping or any discomfort at this time.
[2022-12-27 21:19] LABS: Appearance Urine UA CLEAR; Bilirubin Urine UA NEGATIVE (NEGATIVE); Color Urine UA YELLOW; Glucose Urine UA NEGATIVE (Negative); Ketones Urine UA NEGATIVE (NEGATIVE); Leukocyte Esterase Urine UA NEGATIVE (NEGATIVE); Nitrite Urine UA NEGATIVE (Negative); Occult Blood Urine UA 2+ (Negative); Protein Urine UA NEGATIVE (Negative); Urobilinogen Urine UA 0.2 E.U./dL (0.2)
[2022-12-27 21:27] LABS: Calcium Oxalate Crystals Urine Few; RBC Urine 0-1/HPF (0-5/HPF); Squamous Epithelial Cell Urine 1-5 /HPF (0-5/HPF); WBC Urine None Seen (0-5/HPF)
[2022-12-27 21:28] LABS: Bacteria Urine None Seen; Culture Indicated Urine Cult Not Indicated
[2022-12-27 21:39] LABS: HCG Quantitative /Beta subunit 71637 mIU/mL
[2022-12-27 22:06] VITALS: O2SAT 98
[2022-12-27 22:07] VITALS: BP 131/74; PULSE 93; O2SAT 99
--- NOTE | 2022-12-27 22:41 | ED_ITS ---
HPI - General Adult General Chief complaint: Vaginal Bleeding Stated complaint: vaginal bleeding 11wks Time Seen by Provider: 12/27/22 21:05 Source: patient Mode of arrival: Ambulatory History of Present Illness HPI narrative: 27-year-old at 10 weeks was standing by the stove and felt a gush of blood. Went to the bathroom and confirm that there was a gush of bright red bleeding. She is not complaining of cramping. The bleeding is not persisting. She comes into the ER for further evaluation. She states she had a similar episode about a week ago. She notes that she is blood type A positive and has not needed RhoGAM previously. She notes that otherwise she is feeling well, no cramping, the is too soon to feel any movement. No diarrhea dysuria, nausea or vomiting. Related Data Home Medications Medication Instructions Recorded Confirmed aspirin 81 mg tablet,delayed 81 mg PO DAILY 11/23/22 12/27/22 release prenat.vits,luba,pfr-uaam-ehovp 1 tab PO DAILY 11/23/22 12/27/22 Previous Rx's Medication Instructions Recorded progesterone micronized 200 mg 200 mg PO BEDTIME #30 caps 09/27/22 capsule (Prometrium) Allergies Allergy/AdvReac Type Severity Reaction Status Date / Time venom-honey bee Allergy Severe SEIZURE-HAWA Verified 12/22/22 18:50 [bee venom (honey bee)] H shellfish derived Allergy Intermediate Hives Verified 12/22/22 18:50 Review of Systems Review of Systems Narrative: Pertinent positive and negative findings as per HPI Patient History Medical History Abnormal CT of liver (07/2019) Abnormal MRI of abdomen Bladder cancer (07/2019) Eczema (~2011) UTI (urinary tract infection) Surgical History Anesthesia History of bladder surgery Status post delivery (01/06/12) Status post delivery (12/27/14) Status post tonsillectomy and adenoidectomy Family History Father Suicide Mother Mental health problem Bipolar 1 disorder Brother Asthma Brother Bernardo Roger syndrome Sister No problems noted. Grandfather Dementia Grandmother Breast cancer Grandfather No problems noted. Grandmother Diabetes mellitus Hypertension History of heart disease Grandmother Breast cancer Social History marital status: unmarried,living together number of children: 2 household members: significant other, family (mother) and children lives independently: Yes caregiver/support person: Yes housing: house pets and animals: Yes (3 dogs, 2 cats, hedgehog; kids manage pets.) education level: high school occupational status: employed (memory care health aide) current occupational exposures/hazards: Yes special sajan needs: No travel history: recent (domestic only) seatbelt use: always water heater temp set < 120 deg: Yes working smoke detector in home: Yes fire extinguisher in home: Yes carbon monox detector in home: Yes firearms in home: No do you feel safe at home: Yes Smoking Status: Never smoker second hand exposure: No alcohol intake: former (occasionally when not ) substance use type: marijuana (not while /) during the past year weight has: remained stable well-balanced diet: about half the time daily servings fruits/ve-4 caffeine: Yes (usually 1-2 cups coffee/day) Type(s) of exercise: 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) Smoking Status: Never smoker alcohol intake frequency: other Substance Use Type: does not use Exam Initial Vital Signs Initial Vital Signs: Vital Signs Temperature 98 F 12/27/22 20:06 Pulse Rate 86 12/27/22 20:06 Respiratory Rate 16 12/27/22 20:06 Blood Pressure 169/90 H 12/27/22 20:06 Pulse Oximetry 99 12/27/22 20:06 Oxygen Delivery Method Room Air 12/27/22 20:06 General: Alert appropriate in no acute distress Respiratory: Able to speak in full sentences, no obvious respiratory distress Abdomen: Soft, no obvious uterine contractions palpable Skin: No obvious rashes, warm and dry Neurologic: Grossly intact no obvious asymmetries or abnormalities Psych: appropriate insight and affect, cooperative Course Orders Ordered: ED Orders 12/27/22 20:05 US OB <= 14 weeks fetus Stat 12/27/22 20:30 Complete Blood Count AUTO DIFF Stat Comprehensive Metabolic Panel Stat HCG Quantitative /Beta subunit Stat 12/27/22 20:52 UA Complete [Urinalysis and Microscopic] Stat Vital Signs Vital signs: Vital Signs - 8 hr 12/27/22 20:06 12/27/22 22:06 12/27/22 22:07 Temperature 98 F Pulse Rate 86 Respiratory Rate 16 Blood Pressure 169/90 H 131/74 Pulse Oximetry 99 98 Oxygen Delivery Method Room Air 12/27/22 22:07 Temperature Pulse Rate 93 H Respiratory Rate Blood Pressure Pulse Oximetry 99 Oxygen Delivery Method Medical Decision Making Lab Data 12/27/22 20:30 12/27/22 20:30 Labs: Lab Results 12/27/22 12/27/22 12/27/22 Range/Units 20:30 20:30 20:52 WBC 8.3 (4.5-11.0) X10^3/uL RBC 4.70 (4.0-5.2) X10^6/uL Hgb 13.4 (12.0-16.0) g/dL Hct 39.2 (36-46) % MCV 83.4 (80-100) fL MCH 28.6 (26-34) PG MCHC 34.3 (30-36) % RDW 13.3 (11.6-14.8) % Plt Count 234 (150-400) X10^3/uL Neut % (Auto) 55.3 (50-75) % Lymph % (Auto) 37.0 (25-40) % [place] % (Auto) 6.3 (3-14) % Eos % (Auto) 1.0 L (2-4) % Baso % (Auto) 0.4 (0-2) % Neut # (Auto) 4600 (9410-6592) /uL Lymph # (Auto) 3100 (9379-2420) /uL [place] # (Auto) 500 (0-900) /uL Eos # (Auto) 100 (0-450) /uL Baso # (Auto) 0 (0-100) /uL Sodium 136 L (137-145) mmol/L Potassium 3.9 (3.4-5.1) mmol/L Chloride 105 (98-107) mmol/L Carbon Dioxide 22 (22-32) mmol/L BUN 13 (7-17) mg/dL Creatinine 0.53 (0.52-1.04) mg/dL Estimated GFR > 60 (>60) mL/min BUN/Creatinine Ratio 24.5 H (6-22) Glucose 93 (70-100) mg/dL Calcium 8.9 (8.4-10.2) mg/dL Total Bilirubin 0.3 (0.2-1.3) mg/dL AST 21 (14-36) IU/L ALT 26 (<35) IU/L Alkaline Phosphatase 42 (38-126) U/L Total Protein 7.7 (6.3-8.2) g/dL Albumin 4.4 (3.5-5.0) g/dL Globulin 3.3 (1.7-4.1) g/dL Albumin/Globulin Ratio 1.3 (1.0-2.8) HCG, Quant 93199 mIU/mL Urine Color Yellow Urine Appearance Clear Urine pH 6.0 (4.5-8.0) Ur Specific [place] 1.020 (1.000-1.035) Urine Protein Negative (Negative) Urine Glucose (UA) Negative (Negative) g/dL Urine Ketones Negative (NEGATIVE) Urine Occult Blood 2+ H (Negative) Urine Nitrate Negative (Negative) Urine Bilirubin Negative (NEGATIVE) Urine Urobilinogen 0.2 (0.2) E.U./dL Ur Leukocyte Esterase Negative (NEGATIVE) Urine RBC 0-1/hpf (0-5/HPF) Urine WBC None seen (0-5/HPF) Ur Squamous Epith Cells 1-5 /hpf (0-5/HPF) Calcium Oxalate Crystal Few H Urine Bacteria None seen (None) Ur Culture Indicated? Cult not indicated Urine Dip Bedside Urine Glucose Negative Bedside Urine Bilirubin - Negative Bedside Urine Ketone - Negative Urine Specific [place] 1.020 Bedside Urine Occult Blood ++ Bedside Urine pH 6.0 Bedside Urine Protein - Negative Bedside Urine Urobilinogen 0.2mg/dl Bedside Urine Nitrite - Negative Bedside Urine Leukocytes - Negative Esterase Point of care testing: Urine Dip Bedside Urine Glucose Negative Bedside Urine Bilirubin - Negative Bedside Urine Ketone - Negative Urine Specific [place] 1.020 Bedside Urine Occult Blood ++ Bedside Urine pH 6.0 Bedside Urine Protein - Negative Bedside Urine Urobilinogen 0.2mg/dl Bedside Urine Nitrite - Negative Bedside Urine Leukocytes - Negative Esterase MDM Narrative Medical decision making narrative: CC: Bright red vaginal bleeding at 10 weeks , acute problem uncertain prognosis Complicating co-morbidities: Prior miscarriages, prior bleeding with current Data collected from: patient, Medical records reviewed: OB note from 12/20/2022 is reviewed Differential considered: Cervical bleeding, miscarriage, subchorionic hemorrhage, rectal bleeding Exam documented above, pertinent findings include: Bleeding is not continued, abdomen is soft. Lab Test results independently reviewed as above. Pertinent findings: Chemistries are reassuring CBC is unremarkable with no evidence of acute anemia Urinalysis does not suggest urinary tract infection Imaging studies independently reviewed: Preliminary ultrasound report indicates viable 10 week intrauterine , small subchorionic hemorrhage, Discussion: 27-year-old woman at 10 weeks with small subchorionic hemorrhage causing acute red vaginal bleeding without contractions. Discussed the concerns with any type of bleeding but reassurance regarding a viable fetus is given. Blood type is A positive she does not need RhoGAM. Discussed pelvic rest for the next at least 3 days. Contacting her OBGYN tomorrow to let her know she was in the emergency department and if the bleeding has continued. She is already on light duty at work. Discussed concerns for miscarriage and reasons to return to the emergency department. Questions are answered and she is safe for discharge home Discharge Plan Departure Patient Disposition: Home Clinical Impression: Subchorionic hemorrhage in first trimester Qualifiers: Fetus number: single or unspecified fetus Qualified Code(s): O41.8X10 - Other specified disorders of amniotic fluid and membranes, first trimester, not applicable or unspecified Instructions: DI for Vaginal Bleeding During Activity Restrictions/Additional Instructions: Thank you for coming in today Your ultrasound shows 10 week size baby with a nice heartbeat. There is a small bit of bleeding around the edge of the placenta that likely caused the red blood that you are noticing. At this time, the baby does not appear to be in any distress however with bleeding and cramping miscarriage is always a possibility. I am going to branch ggest at least 3 days of pelvic rest, gentle activity only and you do need to contact Dr. Darling's office to let her know that you are in the emergency department and if your bleeding is worsening. If you find that you are having heavier bleeding over the course of the evening or new concerns, please feel free to return to the ER Prescriptions: No Action progesterone micronized [Prometrium] 200 mg capsule 200 mg PO BEDTIME Qty: 30 6RF prenat.vits,luba,qak-iqjv-svuup Tablet 1 tab PO DAILY aspirin 81 mg tablet,delayed release (DR/EC) 81 mg PO DAILY Referrals: Griffin Salcedo DO [Primary Care Provider] - Stand Alone Forms: Patient Portal/API
[2022-12-27 23:00] VITALS: BP 136/75; PULSE 83; RESP 16; O2SAT 99
== END 2022-12-27 23:01 | disposition home or self-care (01) ==
PROVIDERS: Emergency Provider Emergency Medicine; PCP Family Medicine
DX: O41.8X10 Other specified disorders of amniotic fluid and membranes, first trimester, not applicable or unspecified (principal); Z3A.10 10 weeks gestation of pregnancy
CPT/HCPCS: 36415; 76801; 76817; 80053; 81001; 81003; 84702; 85025; 99283; 99284

== ENCOUNTER → 2023-01-09 13:15 | Outpatient (CLI) | payer OTHER, MEDICAID, SELFPAY ==
[2023-01-09 14:00] LABS: COVID-19 CEPHEID 4-PLEX PCR Negative (Negative); Influenza A - CEPHEID Flu A NEGATIVE (NEGATIVE); Influenza B - CEPHEID Flu B NEGATIVE (NEGATIVE); Respiratory Syncytial Virus Negative (Negative)
== END ==
PROVIDERS: PCP Family Medicine; Visit Provider Physician Assistant
DX: J02.9 Acute pharyngitis, unspecified (principal); Z20.822 Contact with and (suspected) exposure to COVID-19
CPT/HCPCS: 0241U

== ENCOUNTER → 2023-01-19 15:18 | Outpatient (CLI) | payer OTHER, MEDICAID, SELFPAY ==
[2023-01-19 16:47] LABS: Add Manual Diff / Slide Review NO; Basophils Absolute Auto 0 /uL (0-100); Basophils Percent Auto 0.3 % (0-2); Eosinophils Absolute Auto 100 /uL (0-450); Eosinophils Percent Auto 1.1 % (2-4); Hematocrit 36.2 % (36-46); Hemoglobin 12.3 g/dL (12.0-16.0); Lymphocytes Absolute Auto 2500 /uL (1100-4500); Lymphocytes Percent Auto 33.3 % (25-40); Mean Corpuscular HGB Conc 33.9 % (30-36); Mean Corpuscular Hemoglobin 28.7 PG (26-34); Mean Corpuscular Volume 84.6 fL (80-100); Monocytes Absolute Auto 600 /uL (0-900); Monocytes Percent Auto 8.2 % (3-14); Neutrophils Absolute Auto 4200 /uL (1500-7000); Neutrophils Percent Auto 57.1 % (50-75); Platelet Count 198 X10^3/uL (150-400); Red Blood Cell Count 4.29 X10^6/uL (4.0-5.2); Red Cell Distribution Width 13.2 % (11.6-14.8); White Blood Cell Count 7.4 X10^3/uL (4.5-11.0)
[2023-01-19 17:42] LABS: Hepatitis B Surface Antigen NEGATIVE s/c (NEGATIVE); Rubella Antibody IgG 19.2 IU/mL (>15)
[2023-01-19 17:56] LABS: HIV 1 & 2 Ab/Ag 4th Gen Combo NEGATIVE (NEGATIVE); Hep C Virus Ab w/Reflex Quant NEGATIVE s/c (NEGATIVE)
[2023-01-20 04:38] LABS: RPR Screen Non Reactive (Non Reactive)
[2023-01-20 07:19] LABS: Varicella IgG Antibody 667 index (Immune >165)
== END ==
PROVIDERS: PCP Family Medicine; Referring Provider Obstetrics & Gynecology; Visit Provider Obstetrics & Gynecology
DX: Z34.81 Encounter for supervision of other normal pregnancy, first trimester (principal)
CPT/HCPCS: 36415; 80055; 86787; 86803; 86850; 86900; 86901; 87389

== ENCOUNTER → 2023-02-20 11:14 | Outpatient (CLI) | payer OTHER, MEDICAID, SELFPAY ==
[2023-02-22 22:30] LABS: AFP, Serum 127.1 ng/mL (.); Estriol, Free 1.41 ng/mL (.); Inhibin A, Dimeric 149.76 pg/mL (.); Inhibin A, MoM 1.35 (.); Maternal Ethnicity Caucasian (.); Maternal Weight 278 lbs (.); Number of Fetuses No (.); OSBR Risk 1 IN 32 (.); Test Results *Screen Positive* (.); hCG, MoM 1.53 (.); hCG, Serum 29763 mIU/mL (.)
[2023-02-28 09:09] LABS: Results Report (.)
== END ==
PROVIDERS: PCP Family Medicine; Referring Provider Obstetrics & Gynecology; Visit Provider Obstetrics & Gynecology
DX: Z34.82 Encounter for supervision of other normal pregnancy, second trimester (principal); Z3A.17 17 weeks gestation of pregnancy
CPT/HCPCS: 36415; 82105; 82677; 84702; 86336

== ENCOUNTER → 2023-03-14 08:28 | Outpatient (CLI) | payer OTHER, MEDICAID, SELFPAY | PROVIDERS: PCP Family Medicine; Visit Provider Obstetrics & Gynecology | DX: Z34.82 Encounter for supervision of other normal pregnancy, second trimester (principal); Z3A.21 21 weeks gestation of pregnancy | CPT/HCPCS: 87086 ==

== ENCOUNTER → 2023-04-11 07:53 | Outpatient (CLI) | payer OTHER, MEDICAID, SELFPAY ==
[2023-04-11 10:10] LABS: Add Manual Diff / Slide Review NO; Basophils Absolute Auto 0 /uL (0-100); Basophils Percent Auto 0.2 % (0-2); Eosinophils Absolute Auto 100 /uL (0-450); Eosinophils Percent Auto 1.8 % (2-4); Hemoglobin 11.6 g/dL (12.0-16.0); Lymphocytes Absolute Auto 1800 /uL (1100-4500); Lymphocytes Percent Auto 28.9 % (25-40); Mean Corpuscular HGB Conc 34.3 % (30-36); Mean Corpuscular Hemoglobin 29.2 PG (26-34); Mean Corpuscular Volume 85.4 fL (80-100); Monocytes Absolute Auto 300 /uL (0-900); Monocytes Percent Auto 4.8 % (3-14); Neutrophils Absolute Auto 4000 /uL (1500-7000); Neutrophils Percent Auto 64.3 % (50-75); Platelet Count 178 X10^3/uL (150-400); Red Blood Cell Count 3.98 X10^6/uL (4.0-5.2); Red Cell Distribution Width 13.4 % (11.6-14.8); White Blood Cell Count 6.2 X10^3/uL (4.5-11.0)
[2023-04-11 11:10] LABS: Protein (Total) Urine Random 8 mg/dL (0-12)
[2023-04-11 12:10] LABS: Alanine Aminotransferase 18 IU/L (<35); Aspartate Aminotransferase 21 IU/L (14-36); BUN Creatinine Ratio 13.7 (6-22); Blood Urea Nitrogen 7 mg/dL (7-17); Estimated Glomerular Filt Rate > 60 mL/min (>60); GTT (PREG) 1 Hour PP 50gm Dose 184 mg/dL (76-139); Uric Acid 5.4 mg/dL (2.5-6.2)
== END ==
PROVIDERS: PCP Family Medicine; Referring Provider Obstetrics & Gynecology; Visit Provider Obstetrics & Gynecology
DX: Z34.82 Encounter for supervision of other normal pregnancy, second trimester (principal); Z3A.26 26 weeks gestation of pregnancy; I10 Essential (primary) hypertension; Z34.92 Encounter for supervision of normal pregnancy, unspecified, second trimester; Z87.59 Personal history of other complications of pregnancy, childbirth and the puerperium
CPT/HCPCS: 36415; 82565; 82950; 84156; 84450; 84460; 84520; 84550; 85025

== ENCOUNTER → 2023-04-12 07:49 | Outpatient (CLI) | payer OTHER, MEDICAID, SELFPAY ==
[2023-04-12 09:52] LABS: Glucose 1 Hour Gest 202 mg/dL (76-180)
[2023-04-12 09:55] LABS: Glucose Fasting Gestational 91 mg/dL (76-95)
[2023-04-12 11:21] LABS: Glucose 2 Hour Gest 188 mg/dL (76-155)
[2023-04-12 11:23] LABS: Glucose Tol Interp,Gestational INTERPRETATION
[2023-04-12 13:11] LABS: Glucose 3 Hour Gest 105 mg/dL (76-140)
== END ==
PROVIDERS: PCP Family Medicine; Referring Provider Obstetrics & Gynecology; Visit Provider Obstetrics & Gynecology
DX: O99.810 Abnormal glucose complicating pregnancy (principal)
CPT/HCPCS: 36415; 82951; 82952

== ENCOUNTER 2023-05-15 11:40 | Outpatient (CLI) | payer OTHER, MEDICAID, SELFPAY ==
--- NOTE | 2023-05-15 13:46 | P.TNLD_ITS ---
Visit Information Visit Information Date of evaluation: 05/15/23 Primary OB Provider: Evelia Darling On-call OB Provider: Carlota Olivares Reason for Evaluation: Yes non-stress test non-stress test reason: diabetes and hypertension/pre-eclampsia Vital Signs Vital Signs: Blood pressure 131/62, pulse of 80, temperature 35.7? [facility] Medical History Abnormal CT of liver (07/2019) Abnormal MRI of abdomen Bladder cancer (07/2019) Eczema (~2011) UTI (urinary tract infection) Surgical History Anesthesia History of bladder surgery Status post delivery (01/06/12) Status post delivery (12/27/14) Status post tonsillectomy and adenoidectomy Family History Father Suicide Mother Mental health problem Bipolar 1 disorder Brother Asthma Brother Bernardo Roger syndrome Sister No problems noted. Grandfather Dementia Grandmother Breast cancer Grandfather No problems noted. Grandmother Diabetes mellitus Hypertension History of heart disease Grandmother Breast cancer Social History marital status: unmarried,living together number of children: 2 household members: significant other, family (mother) and children lives independently: Yes caregiver/support person: Yes housing: house pets and animals: Yes (3 dogs, 2 cats, hedgehog; kids manage pets.) education level: high school occupational status: employed (memory care health aide) current occupational exposures/hazards: Yes special sajan needs: No travel history: recent (domestic only) seatbelt use: always water heater temp set < 120 deg: Yes working smoke detector in home: Yes fire extinguisher in home: Yes carbon monox detector in home: Yes firearms in home: No do you feel safe at home: Yes Smoking Status: Never smoker second hand exposure: No alcohol intake: former (occasionally when not ) substance use type: marijuana (not while /) during the past year weight has: remained stable well-balanced diet: about half the time daily servings fruits/ve-4 caffeine: Yes (usually 1-2 cups coffee/day) Type(s) of exercise: 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 Continue weekly nonstress tests and OB visits OB Disposition: home
== END 2023-05-15 12:17 | disposition home or self-care (01) ==
LOC: OB 05-17 06:17
PROVIDERS: PCP Family Medicine; Referring Provider Obstetrics & Gynecology; Visit Provider Obstetrics & Gynecology
DX: O24.414 Gestational diabetes mellitus in pregnancy, insulin controlled (principal); O16.3 Unspecified maternal hypertension, third trimester; Z3A.30 30 weeks gestation of pregnancy
CPT/HCPCS: 59025; G0378; G0379

== ENCOUNTER 2023-05-23 12:09 | Outpatient (CLI) | payer OTHER, MEDICAID, SELFPAY ==
--- NOTE | 2023-05-23 12:47 | P.TNLD_ITS ---
Visit Information Visit Information Date of evaluation: 05/23/23 Primary OB Provider: Evelia Darling On-call OB Provider: Carlota Olivares Reason for Evaluation: Yes non-stress test non-stress test reason: diabetes Comments/Additional reasons for admission: 31 week gestation with insulin-requiring gestational diabetes Vital Signs Vital Signs: Blood pressure 115/63, pulse of 87, temperature 35.6? [facility] Medical History Abnormal CT of liver (07/2019) Abnormal MRI of abdomen Bladder cancer (07/2019) Eczema (~2011) UTI (urinary tract infection) Surgical History Anesthesia History of bladder surgery Status post delivery (01/06/12) Status post delivery (12/27/14) Status post tonsillectomy and adenoidectomy Family History Father Suicide Mother Mental health problem Bipolar 1 disorder Brother Asthma Brother Bernardo Roger syndrome Sister No problems noted. Grandfather Dementia Grandmother Breast cancer Grandfather No problems noted. Grandmother Diabetes mellitus Hypertension History of heart disease Grandmother Breast cancer Social History marital status: unmarried,living together number of children: 2 household members: significant other, family (mother) and children lives independently: Yes caregiver/support person: Yes housing: house pets and animals: Yes (3 dogs, 2 cats, hedgehog; kids manage pets.) education level: high school occupational status: employed (memory care health aide) current occupational exposures/hazards: Yes special sajan needs: No travel history: recent (domestic only) seatbelt use: always water heater temp set < 120 deg: Yes working smoke detector in home: Yes fire extinguisher in home: Yes carbon monox detector in home: Yes firearms in home: No do you feel safe at home: Yes Smoking Status: Never smoker second hand exposure: No alcohol intake: former (occasionally when not ) substance use type: marijuana (not while /) during the past year weight has: remained stable well-balanced diet: about half the time daily servings fruits/ve-4 caffeine: Yes (usually 1-2 cups coffee/day) Type(s) of exercise: 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 Continue weekly nonstress tests. OB Disposition: home
== END 2023-05-23 12:45 | disposition home or self-care (01) ==
LOC: LABOR 12:49 → OB 05-24 12:49
PROVIDERS: PCP Family Medicine; Referring Provider Obstetrics & Gynecology; Visit Provider Obstetrics & Gynecology
DX: O24.414 Gestational diabetes mellitus in pregnancy, insulin controlled (principal); O16.3 Unspecified maternal hypertension, third trimester; Z3A.31 31 weeks gestation of pregnancy
CPT/HCPCS: 59025; G0378; G0379

== ENCOUNTER 2023-05-28 21:54 | Outpatient (CLI) | payer OTHER, MEDICAID, SELFPAY | END 2023-05-28 22:53 | disposition home or self-care (01) | LOC: OB 06-01 16:59 | PROVIDERS: PCP Family Medicine; Referring Provider Obstetrics & Gynecology; Visit Provider Obstetrics & Gynecology | DX: O60.03 Preterm labor without delivery, third trimester (principal); Z3A.32 32 weeks gestation of pregnancy | CPT/HCPCS: 59025; 84112; G0378; G0379 ==

== ENCOUNTER 2023-05-30 09:50 | Outpatient (CLI) | payer OTHER, MEDICAID, SELFPAY | END 2023-05-30 10:52 | disposition home or self-care (01) | LOC: LABOR 10:47 → OB 06-01 16:58 | PROVIDERS: PCP Family Medicine; Referring Provider Obstetrics & Gynecology; Visit Provider Obstetrics & Gynecology | DX: O24.414 Gestational diabetes mellitus in pregnancy, insulin controlled (principal); O13.3 Gestational [pregnancy-induced] hypertension without significant proteinuria, third trimester; Z3A.32 32 weeks gestation of pregnancy | CPT/HCPCS: 59025; G0378; G0379 ==

== ENCOUNTER 2023-06-06 09:30 | Outpatient (CLI) | payer OTHER, MEDICAID, SELFPAY | END 2023-06-06 10:28 | disposition home or self-care (01) | LOC: LABOR 10:22 → OB 06-23 11:03 | PROVIDERS: PCP Family Medicine; Referring Provider Obstetrics & Gynecology; Visit Provider Obstetrics & Gynecology | DX: O24.414 Gestational diabetes mellitus in pregnancy, insulin controlled (principal); O13.3 Gestational [pregnancy-induced] hypertension without significant proteinuria, third trimester; Z3A.33 33 weeks gestation of pregnancy | CPT/HCPCS: 59025; G0378; G0379 ==

== ENCOUNTER 2023-06-09 09:43 | Outpatient (CLI) | payer OTHER, MEDICAID, SELFPAY | END 2023-06-09 10:31 | disposition home or self-care (01) | LOC: LABOR 10:19 → OB 06-23 11:05 | PROVIDERS: PCP Family Medicine; Referring Provider Obstetrics & Gynecology; Visit Provider Obstetrics & Gynecology | DX: O24.414 Gestational diabetes mellitus in pregnancy, insulin controlled (principal); O13.3 Gestational [pregnancy-induced] hypertension without significant proteinuria, third trimester; Z3A.34 34 weeks gestation of pregnancy | CPT/HCPCS: 59025; G0378; G0379 ==

== ENCOUNTER 2023-06-21 09:11 | Outpatient (CLI) | payer OTHER, MEDICAID, SELFPAY | END 2023-06-21 10:10 | disposition home or self-care (01) | LOC: LABOR 10:53 → OB 06-23 11:03 | PROVIDERS: PCP Family Medicine; Referring Provider Obstetrics & Gynecology; Visit Provider Obstetrics & Gynecology | DX: O24.414 Gestational diabetes mellitus in pregnancy, insulin controlled (principal); O13.3 Gestational [pregnancy-induced] hypertension without significant proteinuria, third trimester; Z3A.35 35 weeks gestation of pregnancy | CPT/HCPCS: 59025; G0378; G0379 ==

== ENCOUNTER → 2023-06-22 10:33 | Outpatient (CLI) | payer OTHER, MEDICAID, SELFPAY ==
[2023-06-23 13:45] LABS: Strep Grp B PCR NEG for Grp B Strep
== END ==
PROVIDERS: PCP Family Medicine; Visit Provider Obstetrics & Gynecology
DX: Z34.83 Encounter for supervision of other normal pregnancy, third trimester (principal); Z3A.35 35 weeks gestation of pregnancy
CPT/HCPCS: 87653

== ENCOUNTER 2023-06-24 06:51 | Outpatient (CLI) | payer OTHER, MEDICAID, SELFPAY | END 2023-06-24 07:45 | disposition home or self-care (01) | LOC: OB 06-27 13:40 | PROVIDERS: PCP Family Medicine; Referring Provider Obstetrics & Gynecology; Visit Provider Obstetrics & Gynecology | DX: O24.414 Gestational diabetes mellitus in pregnancy, insulin controlled (principal); O13.3 Gestational [pregnancy-induced] hypertension without significant proteinuria, third trimester; O26.23 Pregnancy care for patient with recurrent pregnancy loss, third trimester; Z3A.36 36 weeks gestation of pregnancy | CPT/HCPCS: 59025; G0378; G0379 ==

== ENCOUNTER 2023-06-27 11:05 | Outpatient (CLI) | payer OTHER, MEDICAID, SELFPAY | END 2023-06-27 12:10 | disposition home or self-care (01) | LOC: LABOR 11:18 → OB 07-03 08:21 | PROVIDERS: PCP Family Medicine; Referring Provider Obstetrics & Gynecology; Visit Provider Obstetrics & Gynecology | DX: O47.03 False labor before 37 completed weeks of gestation, third trimester (principal); O24.414 Gestational diabetes mellitus in pregnancy, insulin controlled; O13.3 Gestational [pregnancy-induced] hypertension without significant proteinuria, third trimester; Z3A.36 36 weeks gestation of pregnancy | CPT/HCPCS: 59025; G0378; G0379 ==

== ENCOUNTER 2023-06-30 09:34 | Outpatient (CLI) | payer OTHER, MEDICAID, SELFPAY | END 2023-06-30 10:35 | disposition home or self-care (01) | LOC: LABOR 09:59 → OB 07-03 08:23 | PROVIDERS: PCP Family Medicine; Referring Provider Obstetrics & Gynecology; Visit Provider Obstetrics & Gynecology | DX: O24.414 Gestational diabetes mellitus in pregnancy, insulin controlled (principal); O13.3 Gestational [pregnancy-induced] hypertension without significant proteinuria, third trimester; Z3A.37 37 weeks gestation of pregnancy | CPT/HCPCS: 59025; G0378; G0379 ==

== ENCOUNTER 2023-07-03 09:43 | Outpatient (CLI) | payer OTHER, MEDICAID, SELFPAY | END 2023-07-03 10:18 | disposition home or self-care (01) | LOC: LABOR 09:53 → OB 07-07 13:49 | PROVIDERS: PCP Family Medicine; Referring Provider Obstetrics & Gynecology; Visit Provider Obstetrics & Gynecology | DX: O24.414 Gestational diabetes mellitus in pregnancy, insulin controlled (principal); O13.3 Gestational [pregnancy-induced] hypertension without significant proteinuria, third trimester; Z3A.37 37 weeks gestation of pregnancy | CPT/HCPCS: 59025; G0378; G0379 ==

== ENCOUNTER 2023-07-06 05:41 | Inpatient (IN) | payer OTHER, MEDICAID, SELFPAY ==
[2023-07-06 05:54] VITALS: BP 144/91
[2023-07-06 06:56] LABS: Add Manual Diff / Slide Review NO; Basophils Absolute Auto 0 /uL (0-100); Basophils Percent Auto 0.3 % (0-2); Eosinophils Absolute Auto 100 /uL (0-450); Eosinophils Percent Auto 1.2 % (2-4); Hematocrit 35.6 % (36-46); Lymphocytes Absolute Auto 2300 /uL (1100-4500); Lymphocytes Percent Auto 34.3 % (25-40); Mean Corpuscular HGB Conc 33.7 % (30-36); Mean Corpuscular Hemoglobin 29.3 PG (26-34); Mean Corpuscular Volume 86.9 fL (80-100); Monocytes Absolute Auto 500 /uL (0-900); Monocytes Percent Auto 7.9 % (3-14); Neutrophils Absolute Auto 3700 /uL (1500-7000); Neutrophils Percent Auto 56.3 % (50-75); Platelet Count 171 X10^3/uL (150-400); Red Cell Distribution Width 14.4 % (11.6-14.8); White Blood Cell Count 6.6 X10^3/uL (4.5-11.0)
[2023-07-06] MEDS: CITRIC ACID/SODIUM CITRATE 15 ML SOLUTION 30 ML PO (07:33)
--- NOTE | 2023-07-06 07:39 | PM.OBHP.IH.1 ---
OB HPI Date/Time Date of admission: 07/06/23 Date Patient Seen: 07/06/23 Time Patient Seen: 07:39 History of Present Condition Chief complaint: LUBNA Calculator Estimated Delivery Date Method Current WG Current Estimate 07/21/23 LMP (Certain) 37w 6d Other Estimates 07/22/23 Ultrasound #1 37w 5d Estimated Gestational Age (weeks): 38 : 6 Para: 2 care: good care, initiated at week # (9), number of visits (11) and pounds weight gain (18) Dating criteria OB: LMP confirmed by 1st trimester US Ultrasounds: normal 1st trimester US and normal mid trimester US Obstetrical complications: gestational diabetes and gestational hypertension Medical complications OB: none Indications Operative indications ( section): previous uterine surgery (38 weeks recommended by MF) Preadmission Labs Last OB Lab Results: Blood Type A Positive 07/06/23 06:40 Antibody Screen Negative 07/06/23 06:40 Hematocrit 35.6 % (36-46) L 07/06/23 06:40 Hemoglobin 12.0 g/dL (12.0-16.0) 07/06/23 06:40 Hepatitis B Surface Antigen Negative s/c (NEGATIVE) 01/19/23 15:25 Hepatitis C Antibody Negative s/c (NEGATIVE) 01/19/23 15:25 Rubella Antibody 19.2 IU/mL (>15) 01/19/23 15:25 Varicella-Zoster IgG Antibody 667 index (Immune >165) 01/19/23 15:25 Glucose 1 Hour 184 mg/dL (76-139) H 04/11/23 09:41 Group B Streptococcus (PCR) Neg for grp b strep 06/22/23 10:33 -: Chlamydia screen: negative, Gonorrhea screen: negative and Urine: negative -: PAP smear: Normal Genetic Screens: Quad screen: Abnormal (OSD, u/s normal) External Labs -: Urine: negative Prior (ies) Past Pregnancies Del. Date GA/Weeks Labor Lgth Wt Sex Route Outcome Anesthesia Place Delv Breastfeed Preg Comp Name 01/06/12 34+ 5 lb 6 oz Male live - [place], [place] 1 month pre-eclampsia [place] 08/20/13 8-9 spontaneous 12/27/14 38 7 lb 10 oz Male live - full term [facility] 28 months none [place] 03/21/19 4-5 spontaneous 06/21/20 4+ spontaneous Delivery Date: 08/20/13 Last Updated by: Krista Griffin RN passed spontaneously, no complications Delivery Date: 03/21/19 Last Updated by: Krista Griffin RN passed spontaneously, no complications Delivery Date: 06/21/20 Last Updated by: Krista Griffin RN passed spontaneously, no complications Evaluation Evaluation Baseline heart rate: 135 Variability: Moderate (11-25) monitor accelerations: Present Monitor Decelerations: Absent Status: Category l [facility] Medical History Abnormal CT of liver (07/2019) Abnormal MRI of abdomen Bladder cancer (07/2019) Eczema (~2011) UTI (urinary tract infection) Surgical History Anesthesia History of bladder surgery Status post delivery (01/06/12) Status post delivery (12/27/14) Status post tonsillectomy and adenoidectomy Family History Father Suicide Mother Mental health problem Bipolar 1 disorder Brother Asthma Brother Bernardo Roger syndrome Sister No problems noted. Grandfather Dementia Grandmother Breast cancer Grandfather No problems noted. Grandmother Diabetes mellitus Hypertension History of heart disease Grandmother Breast cancer Social History marital status: unmarried,living together number of children: 2 household members: significant other, family (mother) and children lives independently: Yes caregiver/support person: Yes housing: house pets and animals: Yes (3 dogs, 2 cats, hedgehog; kids manage pets.) education level: high school occupational status: employed (memory care health aide) current occupational exposures/hazards: Yes special sajan needs: No travel history: recent (domestic only) seatbelt use: always water heater temp set < 120 deg: Yes working smoke detector in home: Yes fire extinguisher in home: Yes carbon monox detector in home: Yes firearms in home: No do you feel safe at home: Yes Smoking Status: Never smoker second hand exposure: No alcohol intake: former (occasionally when not ) substance use type: marijuana (not while /) during the past year weight has: remained stable well-balanced diet: about half the time daily servings fruits/ve-4 caffeine: Yes (usually 1-2 cups coffee/day) Type(s) of exercise: 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) Meds Home Medications and Allergies Home Medications Medication Instructions Recorded Confirmed Type aspirin 81 mg tablet,delayed 81 mg PO DAILY 11/23/22 06/22/23 History release prenat.vits,luba,zkj-saux-pquja 1 tab PO DAILY 11/23/22 06/22/23 History blood-glucose meter (Blood Glucose #1 ea 04/13/23 06/22/23 Rx Monitoring kit) lancets #100 ea 04/13/23 06/22/23 Rx insulin NPH isoph U-100 human 100 10 unit (0.1 mL) SUBCUT QAM #15 mL 05/09/23 06/22/23 Rx unit/mL (3 mL) subcutaneous pen (Humulin N NPH U-100 Insulin KwikPen) blood sugar diagnostic (Blood #100 ea 05/10/23 06/22/23 Rx Glucose Test strips) pen needle, diabetic 31 gauge x #100 ea 05/11/23 06/22/23 Rx 3/16 (Lite Touch Insulin Pen [place]) oxycodone 5 mg tablet 5 mg PO Q4H PRN pain #10 tabs 06/23/23 Rx labetalol 100 mg tablet 200 mg (2 x 100 mg) PO TID #60 tabs 07/04/23 Rx Allergies Allergy/AdvReac Type Severity Reaction Status Date / Time venom-honey bee Allergy Severe SEIZURE-HAWA Verified 06/22/23 09:01 [bee venom (honey bee)] H shellfish derived Allergy Intermediate Hives Verified 06/22/23 09:01 OB Exam Vital signs Blood Pressure: 161/90 Narrative Exam Narrative: Generally: Patient is sitting up in bed, no acute distress Lungs: Clear to auscultation bilaterally Cardiovascular: Regular rate and rhythm Fundal height: 41 cm Estimated weight 7-1/2 lb Extremities: 1+ edema, 1+ DTRs Objective Labs 07/06/23 06:40 Labs: Laboratory Results - last 24 hr 07/06/23 06:40 WBC 6.6 RBC 4.10 Hgb 12.0 Hct 35.6 L MCV 86.9 MCH 29.3 MCHC 33.7 RDW 14.4 Plt Count 171 Neut % (Auto) 56.3 Lymph % (Auto) 34.3 [place] % (Auto) 7.9 Eos % (Auto) 1.2 L Baso % (Auto) 0.3 Neut # (Auto) 3700 Lymph # (Auto) 2300 [place] # (Auto) 500 Eos # (Auto) 100 Baso # (Auto) 0 Blood Type A Positive Antibody Screen Negative Assessment and Plan Assessment and Plan Assessment and Plan narrative: Assessment: 27-year-old 6 para 2 at an estimated gestational age of 38 weeks gestation with hypertension and gestational diabetes requiring insulin Followed by Maternal- Medicine, who recommend delivery at 37-38 weeks Previous section Plan: Repeat low-transverse section The risks, benefits, and alternatives to the procedure were explained to the patient. The risks including bleeding, infection, injury to the bowel, bladder, or ureters. She understands these risks and agrees to proceed. A full par Q was held and consent form was signed.
[2023-07-06 07:45] VITALS: BP 161/90
--- NOTE | 2023-07-06 07:45 | PM.PREOP ---
Pre-operative Note Interval Note History & Physical reviewed/Exam performed by Physician: Yes Changes to H&P: No H&P completed within 30 days and has changed as indicated here:: 07/06/23
[2023-07-06] MEDS: CEFAZOLIN VIAL 3 GM in SODIUM CHLORIDE 0.9% 100 ML IV (08:05)
--- NOTE | 2023-07-06 08:26 | SUR.OPER ---
Supine on Padded OR bed, head on pillow, safety belt at thigh, arms secured on padded arm boards at <90 degrees abduction. Bump under right buttock. Legs uncrossed with pillow under knees, gel pad to heels, tape over blanket to lower legs.
[2023-07-06] MEDS: LACTATED RINGERS 1,000 ML 999 ML IV (08:32)
--- NOTE | 2023-07-06 08:45 | SUR.OPER ---
vacuum extraction with 1 attempt, viable baby girl born at 0833, placenta delivered at 0836, 8/9, cord blood and placenta given to OB RN
[2023-07-06 09:20] VITALS: BP 130/74; PULSE 74; RESP 12; TEMP 36.6; O2SAT 99
--- NOTE | 2023-07-06 09:22 | PM.OBCS.1 ---
Operative Date/Time/Diagnoses Date of procedure: 07/06/23 Time of procedure: 09:22 Pre-op diagnosis: EGA 38 wks Previous C section GDM requiring insulin Chronic hypertension Post-op diagnosis: same Procedure & Clinicians Procedure: Repeat C section Same procedure as scheduled: Yes Indications: 27 year old with previous C section, GDM A2, and chronic hypertension Surgeon: Evelia Darling Click Yes if Unassisted: No Stamping Operator: Ruben Guzman Reason for Stamping Operator: The project construction assistant manager was necessary to retract on entry into the abdomen and uterus. He assisted with delivery of the infant with fundal pressure. He assisted with closure with retraction, clipping of suture and closure of the contralateral fascia. Anesthesia Type: Spinal (with Duramorph) Operative Notes Findings: Live female in the LAILA presentation Normal uterus, tubes and ovaries Closure Type: primary Specimen(s): cord blood and placenta Intraoperative meds administered: Acetaminophen, Duramorph, Ketorolac and Pitocin Applied: Catheter (to continuous drainage) Estimated Blood Loss (mL): 350 Blood products transfused: none Procedure in detail: The patient was taken to the operating room where she was placed in the seated position. Spinal anesthesia with Duramorph was administered. The patient was then placed in the dorsal supine position with a leftward tilt. She was prepped and draped in the usual sterile fashion. A timeout was performed. After spinal analgesia was found to be adequate, a Pfannenstiel skin incision was made through the previous incision and carried through to the underlying layer fascia. The fascia was nicked in the midline, and the incision extended bilaterally with the Solorio scissors. The superior aspect of the fascial incision was grasped with a Lorene clamps, elevated, and the underlying rectus muscles dissected off sharply and bluntly. Attention was then turned to the inferior aspect of this incision which in a similar fashion was grasped with a Lorene clamps, elevated, and the underlying rectus muscles dissected off sharply and bluntly. The rectus muscles were in the midline. The peritoneum was identified, grasped between 2 hemostats, and entered sharply with the Metzenbaum scissors. This incision was extended superiorly and inferiorly with good visualization of the bladder. The bladder blade was inserted. The vesicouterine peritoneum was identified, grasped with the pickup, and entered sharply with the Metzenbaum scissors. This incision was extended bilaterally, and the bladder flap was created digitally. The bladder blade was reinserted. The lower uterine segment was incised in a transverse fashion with the scalpel. Upon entering the amniotic sac there was moderate amount of clear amniotic fluid. The infant's head was delivered with vacuum assistance. The nose and mouth were suctioned with bulb suction. The remainder of the body delivered without difficulty. The cord was double clamped and cut after one minute. The was handed off to waiting RN and RT. The placenta was delivered by expression. The uterus was cleared of all clots and debris. The uterine incision was repaired with #1 chromic in a running interlocking fashion, and a second layer the same suture was used for an imbricating layer. Hemostasis was achieved. The tubes and ovaries were examined and were found to be normal. The gutters were cleared of all clots and debris. The bladder flap was reapproximated using 2-0 Vicryl in a running fashion. The parietal peritoneum was closed using 2-0 Vicryl in a running fashion. The fascia was reapproximated using 0 Vicryl in a running fashion. The subcutaneous layer was copiously irrigated with warm normal saline. 6 simple interrupted sutures of 3-0 Vicryl were placed to reapproximate the subcutaneous layer. The skin was closed with 4-0 Monocryl in a subcuticular fashion. Steri-Strips were placed. An Aquacel dressing was placed. The uterus was expressed of a small amount of old blood. Sponge, lap, and instrument counts were correct x 2. The patient tolerated the procedure well, and was taken to PACU in stable condition. Complications: none [place] Baby 1: Gender: Female Presentation: vertex Position: Left Occiput Anterior Placental Delivery Description: Expressed Cord Vessel Description: 3 Vessels, Nuchal Cord, Loose and Reduced score (1 min): 8 score (5 min): 9 weight: 7 lb 13.7 oz Post-operative Condition: stable Disposition: PACU Aftercare: routine postop
[2023-07-06 09:30] VITALS: BP 125/68; PULSE 71; RESP 22; TEMP 36.6; O2SAT 98
[2023-07-06 11:25] LABS: Hematocrit 34.4 % (36-46); Hemoglobin 11.8 g/dL (12.0-16.0)
[2023-07-06] MEDS: OXYCODONE IR 10 MG TABLET PO ×2 (12:46→20:43)
[2023-07-06] MEDS: ONDANSETRON 4 MG/2 ML INJ IV (12:46)
[2023-07-06] MEDS: KETOROLAC 30 MG/ML VIAL IV ×2 (15:10→21:52)
[2023-07-06 20:44] VITALS: BP 133/86; PULSE 86
[2023-07-06] MEDS: LABETALOL 100 MG TABLET 200 MG PO (20:44)
[2023-07-06 22:20] VITALS: BP 126/78; PULSE 81
[2023-07-07] MEDS: KETOROLAC 30 MG/ML VIAL IV (04:08)
[2023-07-07 06:42] VITALS: TEMP 36.5
[2023-07-07] MEDS: ACETAMINOPHEN 325 MG TABLET 650 MG PO (06:42)
[2023-07-07 06:43] VITALS: TEMP 36.5
[2023-07-07] MEDS: OXYCODONE IR 10 MG TABLET PO ×2 (06:43→11:06)
[2023-07-07 08:29] VITALS: BP 127/74; PULSE 89
[2023-07-07] MEDS: DOCUSATE 100 MG CAPSULE PO (08:29)
[2023-07-07] MEDS: LABETALOL 100 MG TABLET 200 MG PO (08:29)
[2023-07-07] MEDS: PRENATAL VIT,CALC/IRON/FOLIC 1 TABLET 1 TAB PO (08:32)
[2023-07-07] MEDS: IBUPROFEN 600 MG TABLET PO (11:06)
--- NOTE | 2023-07-09 14:05 | P.DS_ITS ---
Discharge Providers Provider Date of admission: 07/06/23 05:41 Discharge Date: 07/07/23 Primary care physician: Griffin Salcedo DO Consults: 07/06/23 09:34 Consult to Drill Rig Operator Helper Routine Comment: Discharge provider: Evelia Darling MD Summary Hospital Course Date Patient Seen: 07/07/23 Time Patient Seen: 09:15 Diagnoses: EGA 37 weeks GDM A2 Chronic hypertension Previous C section Repeat C section Hospital Course: Patient is a 27-year-old 6 para 3 who presented on July 06, 2023 for a scheduled repeat section at an estimated gestational age of 37 weeks. She had chronic hypertension and insulin-dependent diabetes. She underwent this procedure without complication. Her postoperative course was unremarkable. Baby had stable blood sugars. She was discharged home on July 07, 2023 on labetalol 200 mg twice a day. She will follow-up at 1 week for an Aquacel dressing removal. Peripartum Data Delivery Method: Section (repeat) Procedures: Spinal anesthesia with Duramorph Repeat low-transverse section complications: none 1: Gender: Female Disposition of : home Status at Discharge Cognitive/behavioral status at discharge: oriented Functional status at discharge: independent ambulation Overall status at discharge: patient is progressing back to baseline Time Spent with Patient Time attestation: Total time spent providing and/or coordinating discharge services: Time spent: Less than 30 minutes Objective Labs 07/06/23 11:15 Exam Vital Signs (past 8 hours): Oxygen Delivery Method Room Air Narrative Exam Narrative: Generally: Patient is sitting up in bed, no acute distress Lungs: Clear to auscultation bilaterally Cardiovascular: Regular rate and rhythm Fundus: Firm at U -1 Incision: Clean dry and intact with Aquacel dressing Extremities: Trace edema, negative Hom[place] Discharge Plan Discharge Plan Patient Disposition: Home Provider Discharge Comment: All with fever, chills, redness or drainage around the incision, or bleeding vaginally more than a pad in an hour Call with headache, blurred vision, spots before her eyes or tender calves Ibuprofen 600 mg every 6 hours as needed Ibuprofen 650 mg every 6 hours as needed Discharge orders & Medications Prescriptions: New oxycodone 5 mg tablet 5 mg PO Q4H PRN (Reason: pain) Qty: 20 0RF Continued prenat.vits,luba,nts-czyo-eatrf Tablet 1 tab PO DAILY Changed labetalol 100 mg tablet 200 mg PO BID Qty: 60 6RF Discontinued oxycodone 5 mg tablet 5 mg PO Q4H PRN (Reason: pain) Qty: 10 0RF Humulin N NPH Insulin KwikPen 100 unit/mL (3 mL) insulin pen 10 unit SUBCUT QAM Qty: 15 1RF aspirin 81 mg tablet,delayed release (DR/EC) 81 mg PO DAILY No Action (DME) blood-glucose meter [Blood Glucose Monitoring] Kit See Rx Instructions .MEDSUPPLY Qty: 1 0RF Rx Instructions: please chk AM fasting blood sugar, and 1 hour after brkfst, lunch and dinner (DME) lancets Misc See Rx Instructions miscellaneous .MEDSUPPLY Qty: 100 0RF Rx Instructions: As directed (DME) Blood Glucose Test Strip See Rx Instructions miscellaneous .MEDSUPPLY Qty: 100 1RF Rx Instructions: Am fasting and 2 hours after each meal. (DME) pen needle, diabetic [Lite Touch Insulin Pen [place]] 31 gauge x 3/16 needle See Rx Instructions .Route Qty: 100 0RF Rx Instructions: For use with insulin pen Follow up/Referrals: Evelia Darling MD [Physician] - (One week Aquacel dressing removal w/ RN: @ 11am) Diet/Activity/Treatments Diet: Regular Activity: No heavy lifting Nothing in the vagina for 6 weeks Skin/Wound/Dressing Care Report to your healthcare provider any signs of infection, such as:: chills, fever, increased pain, unusual drainage and unusual redness Dressing: Do not remove Visit Report/Discharge Packet Instructions: DI for , DI for Prescription Opioid Use Stand Alone Forms: Discharge: Care, Patient Portal/API, Stroke Signs & Symptoms Discharge Data Primary Care Provider: Griffin Salcedo
== END 2023-07-07 11:40 | disposition home or self-care (01) | DRG 540 ==
PROVIDERS: Admitting Provider Obstetrics & Gynecology; PCP Family Medicine; Referring Provider Obstetrics & Gynecology; Visit Provider Obstetrics & Gynecology
PROC: 10D00Z1 Extraction of Products of Conception, Low, Open Approach (ICD-10-PCS; CPT 59514; principal; 2023-07-06 07:45)
DX: O34.211 Maternal care for low transverse scar from previous cesarean delivery (principal); Z3A.38 38 weeks gestation of pregnancy; Z37.0 Single live birth; O24.12 Pre-existing type 2 diabetes mellitus, in childbirth; Z79.4 Long term (current) use of insulin; O13.4 Gestational [pregnancy-induced] hypertension without significant proteinuria, complicating childbirth
CPT/HCPCS: 36415; 59050; 59514; 85014; 85018; 85025; 86850; 86900; 86901; J0690; J1885; J2274; J2405; J2590; J3010

== ENCOUNTER → 2023-09-27 11:21 | Outpatient (CLI) | payer OTHER, MEDICAID, SELFPAY ==
[2023-09-27 12:50] LABS: HCG Quantitative /Beta subunit < 2.4 mIU/mL
== END ==
PROVIDERS: PCP Family Medicine; Referring Provider Obstetrics & Gynecology; Visit Provider Obstetrics & Gynecology
DX: N91.2 Amenorrhea, unspecified (principal)
CPT/HCPCS: 36415; 84702

== ENCOUNTER → 2024-08-15 17:04 | Outpatient (ROUT) | payer OTHER, SELFPAY | PROVIDERS: PCP Family Medicine; Visit Provider Family Medicine | DX: N39.0 Urinary tract infection, site not specified (principal); R39.9 Unspecified symptoms and signs involving the genitourinary system | CPT/HCPCS: 87086 ==

== ENCOUNTER → 2024-09-19 09:38 | Outpatient (CLI) | payer OTHER, SELFPAY ==
[2024-09-19 10:23] LABS: Influenza A - CEPHEID Flu A POSITIVE (NEGATIVE); Influenza B - CEPHEID Flu B NEGATIVE (NEGATIVE); Respiratory Syncytial Virus Negative (Negative)
[2024-09-19 10:24] LABS: COVID-19 CEPHEID 4-PLEX PCR Negative (Negative)
== END ==
PROVIDERS: PCP Family Medicine; Visit Provider Physician Assistant
DX: R05.1 Acute cough (principal)
CPT/HCPCS: 87635; 87400 ×2; 87420; 0241U

== ENCOUNTER → 2024-11-18 14:07 | Outpatient (CLI) | payer OTHER, SELFPAY ==
[2024-11-18 15:21] LABS: HCG Quantitative /Beta subunit 259.68 mIU/mL
== END ==
LOC: LAB 14:08
PROVIDERS: PCP Family Medicine; Referring Provider Specialist; Visit Provider Specialist
DX: N91.2 Amenorrhea, unspecified (principal)
CPT/HCPCS: 36415; 84702

== ENCOUNTER → 2024-11-20 10:32 | Outpatient (CLI) | payer OTHER, SELFPAY ==
[2024-11-20 12:21] LABS: HCG Quantitative /Beta subunit 617.33 mIU/mL
== END ==
PROVIDERS: PCP Family Medicine; Referring Provider Specialist; Visit Provider Specialist
DX: N91.2 Amenorrhea, unspecified (principal)
CPT/HCPCS: 36415; 84702

== ENCOUNTER → 2024-12-18 11:39 | Outpatient (CLI) | payer OTHER, SELFPAY ==
[2024-12-18 15:05] LABS: Urine N gonorrhoeae NOT DETECTED
[2024-12-18 15:11] LABS: Urine Chlamydia NOT DETECTED
== END ==
PROVIDERS: PCP Family Medicine; Visit Provider Obstetrics & Gynecology
DX: Z11.3 Encounter for screening for infections with a predominantly sexual mode of transmission (principal); Z3A.08 8 weeks gestation of pregnancy
CPT/HCPCS: 87491; 87591

== ENCOUNTER → 2024-12-27 09:57 | Outpatient (CLI) | payer OTHER, SELFPAY ==
[2024-12-27 11:35] LABS: Add Manual Diff / Slide Review NO; Basophils Absolute Auto 0 /uL (0-100); Basophils Percent Auto 0.5 % (0-2); Eosinophils Absolute Auto 100 /uL (0-450); Eosinophils Percent Auto 0.8 % (2-4); Hematocrit 39.1 % (36-46); Hemoglobin 13.6 g/dL (12.0-16.0); Lymphocytes Absolute Auto 3000 /uL (1100-4500); Mean Corpuscular HGB Conc 34.8 % (30-36); Mean Corpuscular Hemoglobin 29.7 PG (26-34); Mean Corpuscular Volume 85.5 fL (80-100); Monocytes Absolute Auto 500 /uL (0-900); Monocytes Percent Auto 5.3 % (3-14); Neutrophils Absolute Auto 5000 /uL (1500-7000); Neutrophils Percent Auto 58.4 % (50-75); Platelet Count 249 X10^3/uL (150-400); Red Blood Cell Count 4.57 X10^6/uL (4.0-5.2); Red Cell Distribution Width 13.3 % (11.6-14.8); White Blood Cell Count 8.6 X10^3/uL (4.5-11.0)
[2024-12-27 11:42] LABS: Natera Collection Specimen Collected
[2024-12-27 11:57] LABS: Hemoglobin A1C% w Est Avg Glu 5.1 % (4.0-6.0)
[2024-12-27 12:14] LABS: Alanine Aminotransferase 24 IU/L (<35); Aspartate Aminotransferase 19 IU/L (14-36); BUN Creatinine Ratio 24.1 (6-22); Blood Urea Nitrogen 13 mg/dL (7-17); Estimated Glomerular Filt Rate > 60 mL/min (>60); Uric Acid 4.7 mg/dL (2.5-6.2)
[2024-12-27 13:27] LABS: Hepatitis B Surface Antigen NEGATIVE s/c (NEGATIVE); Rubella Antibody IgG 19.4 IU/mL (>15)
[2024-12-27 13:43] LABS: HIV 1 & 2 Ab/Ag 4th Gen Combo NEGATIVE (NEGATIVE); Hep C Virus Ab w/Reflex Quant NEGATIVE s/c (NEGATIVE)
[2024-12-28 05:10] LABS: RPR Screen Non Reactive (Non Reactive)
[2024-12-29 13:36] LABS: Varicella IgG Antibody Reactive (Non Reactive)
== END ==
PROVIDERS: Specialist; PCP Family Medicine; Referring Provider Obstetrics & Gynecology; Visit Provider Obstetrics & Gynecology
DX: O09.899 Supervision of other high risk pregnancies, unspecified trimester (principal); Z87.59 Personal history of other complications of pregnancy, childbirth and the puerperium; E28.2 Polycystic ovarian syndrome; Z3A.10 10 weeks gestation of pregnancy; Z86.32 Personal history of gestational diabetes
CPT/HCPCS: 36415; 80055; 82565; 83036; 84450; 84460; 84520; 84550; 86787; 86803; 86850; 86900; 86901; 87389

== ENCOUNTER → 2025-01-15 11:26 | Outpatient (CLI) | payer OTHER, SELFPAY | PROVIDERS: PCP Family Medicine; Visit Provider Obstetrics & Gynecology | DX: R31.9 Hematuria, unspecified (principal); R30.0 Dysuria | CPT/HCPCS: 87086 ==

== ENCOUNTER → 2025-01-22 11:57 | Outpatient (CLI) | payer OTHER, SELFPAY ==
[2025-01-22 12:47] LABS: Appearance Urine UA CLEAR; Bilirubin Urine UA NEGATIVE (NEGATIVE); Color Urine UA YELLOW; Glucose Urine UA NEGATIVE (Negative); Ketones Urine UA TRACE (NEGATIVE); Leukocyte Esterase Urine UA NEGATIVE (NEGATIVE); Nitrite Urine UA NEGATIVE (Negative); Occult Blood Urine UA NEGATIVE (Negative); Protein Urine UA NEGATIVE (Negative)
[2025-01-22 12:56] LABS: Bacteria Urine None Seen; Culture Indicated Urine Cult Not Indicated; RBC Urine None Seen (0-5/HPF); Squamous Epithelial Cell Urine 1-5 /HPF (0-5/HPF); Urine Volume 10mL (spun); WBC Urine None Seen (0-5/HPF)
== END ==
PROVIDERS: PCP Family Medicine; Referring Provider Obstetrics & Gynecology; Visit Provider Obstetrics & Gynecology
DX: R30.0 Dysuria (principal)
CPT/HCPCS: 81001

== ENCOUNTER → 2025-02-12 15:01 | Outpatient (CLI) | payer OTHER, SELFPAY ==
[2025-02-15 20:12] LABS: AFP Value 49.9 ng/mL (.); Gest Age on Col Date 16.7 weeks (.); Insulin Dep Diabetes No (.); OSBR Risk 1IN 965 (.); Results Report (.); Test Results *Screen Negative* (.)
== END ==
PROVIDERS: PCP Family Medicine; Referring Provider Family Medicine; Visit Provider Obstetrics & Gynecology
DX: Z34.82 Encounter for supervision of other normal pregnancy, second trimester (principal); Z3A.16 16 weeks gestation of pregnancy
CPT/HCPCS: 36415; 82105

== ENCOUNTER → 2025-03-10 13:45 | Outpatient (CLI) | payer OTHER, SELFPAY ==
--- NOTE | 2025-03-10 13:46 | DI.US.S_ITS ---
PROCEDURE: US OB >= 14 WEEKS FETUS INDICATIONS: 20 week anatomy scan OUTSIDE/PRIOR DATING DATA: Last menstrual period (LMP): 10/18/2024. LMP-based estimated date of delivery (LUBNA): 07/25/2025. First dating scan (date and location): 12/18/2024. Estimated date of delivery (LUBNA) from first dating scan: 07/23/2025. The calculations are made using the clinical LUBNA of 07/25/2025. TECHNIQUE: Real-time scanning was performed of the fetus, with image documentation and biometric measurements. Endovaginal scanning: Not performed COMPARISON: [facility], , OB >= 14 WEEKS FETUS, 02/12/2025, 15:01. FINDINGS: General: A single living intrauterine gestation is present. Presentation: Breech. Placenta: Placental position is posterior, without previa. Amniotic fluid index: 13.5 cm, normal range is 5-24 cm. Single deepest vertical pocket is 4.5 cm. heart rate: 153 beats per minute. Maternal cervical canal: 5 cm long. Normal lower limit is 2.5 cm. biometrics: Biparietal diameter: 4.7 cm, 20 weeks 0 days Head circumference: 18.1 cm, 20 weeks 4 days Abdominal circumference: 16.9 cm, 21 weeks 6 days Femur length: 3.4 cm, 20 weeks 5 days Clinically estimated gestational age: 20 weeks 3 days Composite gestational age from present scan: 20 weeks 6 days Estimated weight and percentile: 407 g, 85th percentile Anatomic survey: Neuro: Ventricles are non-dilated at less than 10 mm. Cisterna magna is normal at 3-11 mm. Cerebellum is normal in size and morphology. Nuchal skin fold: Normal at less than 6 mm between 14-21 weeks gestational age. Face: Nose and lips, facial profile are not well seen due to lie. Spine: No evidence for spina bifida. Heart: 4-chambered heart is present. Outflow tracts not well seen. Diaphragm: Diaphragm is intact. Stomach: Left-sided stomach is present. Kidneys: No hydronephrosis. Normal is less than 5 mm in 2nd trimester, less than 7 mm in 3rd trimester. Cord: 3-vessel cord has orthotopic insertion. Bladder: Normal in size. Extremities: All 4 extremities identified. IMPRESSION: 1. Merrill living intrauterine at 20 weeks 6 days based on today's ultrasound. Fetus is in the 85th percentile for weight. 2. Normal placenta and amniotic fluid. 3. nose and lips and facial profile and outflow tracts are not well seen. Otherwise normal anatomic survey. Recommend follow-up OB ultrasound. We strive to produce accurate, complete, and clear reports of imaging services. To assist us in improving patient care, this report was composed using standard report templates and voice recognition software. Therefore, it may contain abnormal punctuation, insertions and/or omissions. Occasional wrong-word or sound-alike substitutions may occur. Though we review the report and make efforts to correct it, we do recommend that the report be read carefully in proper context to recognize any text inaccuracies. Dictated by: Ayad Gaytan M.D. on 03/10/2025 at 22:06 Approved by: Ayad Gaytan M.D. on 03/10/2025 at 22:14
== END ==
LOC: US 13:45
PROVIDERS: PCP Family Medicine; Referring Provider Family Medicine; Visit Provider Obstetrics & Gynecology
DX: Z36.89 Encounter for other specified antenatal screening (principal); Z3A.20 20 weeks gestation of pregnancy
CPT/HCPCS: 76811

== ENCOUNTER → 2025-03-18 15:00 | Outpatient (CLI) | payer OTHER, SELFPAY ==
--- NOTE | 2025-03-18 15:01 | DI.US.S_ITS ---
PROCEDURE: US OB FOLLOW UP INDICATIONS: OFT not seen well on anatomy scan OUTSIDE/PRIOR DATING DATA: Last menstrual period (LMP): 10/18/2024. LMP-based estimated date of delivery (LUBNA): 07/25/2025. First dating scan (date and location): 12/18/2024. Estimated date of delivery (LUBNA) from first dating scan: 07/23/2025. The calculations are made using the clinical LUBNA of 07/25/2025. TECHNIQUE: Real-time scanning was performed of the fetus, with image documentation. Endovaginal scanning: Not performed. Technically difficult due to acoustic windows and position. COMPARISON: 03/10/2025. FINDINGS: A single living intrauterine gestation is present. Presentation: Vertex. Placenta: Placental position is posterior, without previa. Amniotic fluid index: 11 cm, normal range is 5-24 cm. Single deepest vertical pocket is 3.8 cm. heart rate: 158 beats per minute. Maternal cervical canal: 3.4 cm long. Normal lower limit is 2.5 cm. Clinically estimated gestational age: 21 weeks 4 days Cardiac outflow tracks, nose and lips, are within normal limits. The facial profile is not well seen. IMPRESSION: 1. Merrill living intrauterine at 21 weeks 4 days based on prior dating. 2. Normal placenta and amniotic fluid. 3. Cardiac outflow tracks and nose and lips are within normal limits. The facial profile is not well seen. Dictated by: Ayad Gaytan M.D. on 03/19/2025 at 9:33 Approved by: Ayad Gaytan M.D. on 03/19/2025 at 9:41
== END ==
PROVIDERS: PCP Family Medicine; Referring Provider Obstetrics & Gynecology; Visit Provider Obstetrics & Gynecology
DX: O09.892 Supervision of other high risk pregnancies, second trimester (principal); Z3A.21 21 weeks gestation of pregnancy
CPT/HCPCS: 76816

== ENCOUNTER 2025-05-30 11:03 | Outpatient (CLI) | payer OTHER, SELFPAY | END 2025-05-30 11:25 | disposition home or self-care (01) | LOC: LABOR 11:24 → OB 12:37 | PROVIDERS: PCP Family Medicine; Referring Provider Obstetrics & Gynecology; Visit Provider Obstetrics & Gynecology | DX: O24.113 Pre-existing type 2 diabetes mellitus, in pregnancy, third trimester (principal); O10.913 Unspecified pre-existing hypertension complicating pregnancy, third trimester; Z3A.32 32 weeks gestation of pregnancy; Z79.4 Long term (current) use of insulin | CPT/HCPCS: 59025; G0378; G0379 ==

== ENCOUNTER 2025-06-06 09:49 | Outpatient (CLI) | payer OTHER, SELFPAY | END 2025-06-06 10:36 | disposition home or self-care (01) | LOC: LABOR 10:12 → OB 12:28 | PROVIDERS: PCP Family Medicine; Referring Provider Obstetrics & Gynecology; Visit Provider Obstetrics & Gynecology | DX: O10.913 Unspecified pre-existing hypertension complicating pregnancy, third trimester (principal); Z3A.33 33 weeks gestation of pregnancy | CPT/HCPCS: 59025; G0378; G0379 ==

== ENCOUNTER 2025-06-10 09:37 | Observation (INO) | payer OTHER, SELFPAY ==
[2025-06-10 10:01] LABS: Appearance Urine UA CLEAR; Bilirubin Urine UA NEGATIVE (NEGATIVE); Color Urine UA YELLOW; Glucose Urine UA NEGATIVE (Negative); Ketones Urine UA NEGATIVE (NEGATIVE); Leukocyte Esterase Urine UA NEGATIVE (NEGATIVE); Nitrite Urine UA NEGATIVE (Negative); Occult Blood Urine UA NEGATIVE (Negative); Protein Urine UA NEGATIVE (Negative); Specific Gravity Urine UA <=1.005 (1.000-1.035); Urobilinogen Urine UA 0.2 E.U./dL (0.2)
[2025-06-10 10:10] LABS: pH Urine UA 7.0 (4.5-8.0)
[2025-06-10 10:26] LABS: Culture Indicated Urine Cult Not Indicated
[2025-06-10 10:43] LABS: Add Manual Diff / Slide Review NO; Hematocrit 34.9 % (36-46); Hemoglobin 11.8 g/dL (12.0-16.0); Lymphocytes Absolute Auto 2600 /uL (1100-4500); Mean Corpuscular HGB Conc 33.9 % (30-36); Mean Corpuscular Hemoglobin 28.6 PG (26-34); Mean Corpuscular Volume 84.5 fL (80-100); Platelet Count 144 X10^3/uL (150-400)
[2025-06-10 11:04] LABS: Alanine Aminotransferase 12 IU/L (<35); Albumin 3.6 g/dL (3.5-5.0); Albumin Globulin Ratio 1.1 (1.0-2.8); Alkaline Phosphatase 78 U/L (38-126); Blood Urea Nitrogen 7 mg/dL (7-17); Calcium 8.8 mg/dL (8.4-10.2); Carbon Dioxide 17 mmol/L (22-32); Chloride 107 mmol/L (98-107); Estimated Glomerular Filt Rate > 60 mL/min (>60); Globulin 3.3 g/dL (1.7-4.1); Glucose 92 mg/dL (70-99); HEMOLYSIS < 15 (0-50); Potassium 3.8 mmol/L (3.4-5.1); Sodium 134 mmol/L (137-145); Total Protein 6.9 g/dL (6.3-8.2)
== END 2025-06-10 12:35 | disposition home or self-care (01) ==
PROVIDERS: Admitting Provider Obstetrics & Gynecology; PCP Family Medicine; Referring Provider Obstetrics & Gynecology; Visit Provider Obstetrics & Gynecology
DX: O60.03 Preterm labor without delivery, third trimester (principal); O36.8130 Decreased fetal movements, third trimester, not applicable or unspecified; O10.913 Unspecified pre-existing hypertension complicating pregnancy, third trimester; O99.213 Obesity complicating pregnancy, third trimester; E66.9 Obesity, unspecified; Z3A.33 33 weeks gestation of pregnancy
CPT/HCPCS: 36415; 59025; 59050; 76815; 80053; 81001; 85025; 86850; 86900; 86901; 96360; G0378; G0379

== ENCOUNTER 2025-06-13 09:41 | Outpatient (CLI) | payer OTHER, SELFPAY | END 2025-06-13 11:03 | disposition home or self-care (01) | LOC: LABOR 10:03 → OB 13:10 | PROVIDERS: PCP Family Medicine; Referring Provider Obstetrics & Gynecology; Visit Provider Obstetrics & Gynecology | DX: O36.8130 Decreased fetal movements, third trimester, not applicable or unspecified (principal); O10.913 Unspecified pre-existing hypertension complicating pregnancy, third trimester; O99.213 Obesity complicating pregnancy, third trimester; E66.9 Obesity, unspecified; Z3A.34 34 weeks gestation of pregnancy | CPT/HCPCS: 59025; G0378; G0379 ==

== ENCOUNTER 2025-06-16 18:41 | Outpatient (CLI) | payer OTHER, SELFPAY ==
--- NOTE | 2025-06-16 19:21 | P.TNLD_ITS ---
Visit Information Visit Information Date of evaluation: 06/16/25 On-call OB Provider: Hetal Celestin Reason for Evaluation: Yes non-stress test non-stress test reason: decreased movement Comments/Additional reasons for admission: 29 yo presenting at 34w3d for decreased movement. Stll noting movement but less of it and smaller movements PFSH Medical History (Updated 05/09/25 @ 11:30 by Edith Renae DO) Gestational diabetes mellitus (GDM) requiring insulin Kidney stone on right side Abnormal MRI of abdomen Bladder cancer (07/2019) Abnormal CT of liver (07/2019) Surgical History (Updated 11/21/24 @ 10:39 by Krista Griffin RN) [place] teeth removed (01/16/17) History of bladder surgery Anesthesia Status post tonsillectomy and adenoidectomy Status post delivery (12/27/14) Status post delivery (01/06/12) Family History Father Suicide Mother Mental health problem Bipolar 1 disorder Brother Asthma Brother Bernardo Roger syndrome Sister No problems noted. Grandfather Dementia Grandmother Breast cancer Grandfather No problems noted. 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) current occupational exposures/hazards: Yes special sajan needs: No travel history: recent (domestic only) seatbelt use: always water heater temp set < 120 deg: Yes working smoke detector in home: Yes fire extinguisher in home: Yes carbon monox detector in home: Yes firearms in home: No do you feel safe at home: Yes second hand exposure: No alcohol intake: former (rarely when not ) substance use type: marijuana (not while /) during the past year weight has: other (back to ~weight prior to last pregancy) well-balanced diet: about half the time daily servings fruits/ve-4 caffeine: Yes (single cup coffee in AM) Type(s) of exercise: walking frequency: daily duration: 30-45 minutes/day Review of Systems Review of Systems Narrative: - LOF -CHOI + decreased movement - contractions Evaluation Evaluation Baseline heart rate: 140 Variability: Moderate (6-25) monitor accelerations: Present Monitor Decelerations: Absent Contraction Frequency (minutes): 0 Status: Category l Diagnosis, Plan/Disposition Plan/Disposition Plan: 29 yo presenting at 34w3d for decreased movement. Stll noting movement but less of it and smaller movements. NST cat 1 and reassuring, no pre- E sx. Pt d/c'ed home, f/up wtih primary OB tomorrow in clinic OB Disposition: home
== END 2025-06-16 19:30 | disposition home or self-care (01) ==
LOC: OB 06-17 07:05
PROVIDERS: PCP Family Medicine; Referring Provider Obstetrics & Gynecology; Visit Provider Obstetrics & Gynecology
DX: O36.8130 Decreased fetal movements, third trimester, not applicable or unspecified (principal); Z3A.34 34 weeks gestation of pregnancy
CPT/HCPCS: 59025; G0378; G0379

== ENCOUNTER 2025-06-23 14:29 | Observation (INO) | payer OTHER, SELFPAY ==
[2025-06-23 17:02] LABS: Appearance Urine UA CLEAR; Bilirubin Urine UA NEGATIVE (NEGATIVE); Color Urine UA YELLOW; Glucose Urine UA NEGATIVE (Negative); Ketones Urine UA NEGATIVE (NEGATIVE); Leukocyte Esterase Urine UA NEGATIVE (NEGATIVE); Nitrite Urine UA NEGATIVE (Negative); Occult Blood Urine UA TRACE-INTACT (Negative); Protein Urine UA NEGATIVE (Negative); Specific Gravity Urine UA 1.025 (1.000-1.035); Urobilinogen Urine UA 0.2 E.U./dL (0.2)
[2025-06-23 17:05] LABS: pH Urine UA 6.0 (4.5-8.0)
[2025-06-23 17:08] LABS: Culture Indicated Urine Cult Not Indicated
--- NOTE | 2025-06-23 17:25 | PM.OBHP.IH.1 ---
OB HPI Date/Time Date of admission: 06/23/25 Date Patient Seen: 06/23/25 Time Patient Seen: 17:26 History of Present Condition Chief complaint: nst LUBNA Calculator Estimated Delivery Date Method Current WG Current Estimate 07/25/25 LMP (Certain) 35w 3d Other Estimates 07/23/25 Ultrasound #1 35w 5d Estimated Gestational Age (weeks): 35w3d : 7 Para: 3 Narrative: Patient is a 29yo @ 35w3d presents to L&D with concern of contractions that started the last few days but today become more painful. Reports that they had become so painful that she was crying in pain and feeling a pulling near her scar. denies LOF/VB and rpeorts good movement. of note-- she has not eaten or drank much today as she has been busy with her children. she had a banana at 0700 and that is all for the day partially because of the pain suppressing her appetite as well. took her metformin 500mg this am- fasting glucose- 88 her mid day labetalol 100mg PO is due now care: good care Dating criteria OB: LMP confirmed by 1st trimester US Ultrasounds: normal mid trimester US Obstetrical complications: gestational diabetes Medical complications OB: cardiovascular Preadmission Labs Last OB Lab Results: Blood Type A Positive 06/10/25, 10:15 Antibody Screen Negative 06/10/25, 10:15 Hct, (36-46) 34.9 % L 06/10/25, 10:15 Hgb, (12.0-16.0) 11.8 g/dL L 06/10/25, 10:15 Hep Bs Antigen, (NEGATIVE) Negative s/c 12/27/24, 10:42 Hepatitis C Antibody, (NEGATIVE) Negative s/c 12/27/24, 10:42 Rubella Antibody, (>15) 19.4 IU/mL 12/27/24, 10:42 VZV IgG Antibody, (Non Reactive) Reactive 12/27/24, 10:42 Glucose 1 Hr 50 gm, (76-139) 184 mg/dL H 04/07/25, 12:13 Hemoglobin A1c, (4.0-6.0) 5.1 % 12/27/24, 10:42 Group B Strep (PCR) Neg for grp b strep 06/22/23, 10:33 Prior (ies) Past Pregnancies Del. Date GA/Weeks Labor Lgth Wt Sex Route Outcome Anesthesia Place Delv Breastfeed Preg Comp Name 01/06/12 34+ 5 lb 6 oz Male live - [place] 1 month Geovanny 08/20/13 8-9 spontaneous 12/27/14 38 7 lb 10 oz Male live - full term [facility] 28 months Tim 03/21/19 4-5 spontaneous 06/21/20 4+ spontaneous 07/06/23 37.6 7 lb 13.7 oz Female live - full term [facility] Still going as of 11/21/24 [place] Delivery Date: 08/20/13 Last Updated by: Krista Griffin RN passed spontaneously, no complications Delivery Date: 03/21/19 Last Updated by: Krista Griffin RN passed spontaneously, no complications Delivery Date: 06/21/20 Last Updated by: Krista Griffin RN passed spontaneously, no complications Evaluation Evaluation Baseline heart rate: 145 Variability: Moderate (6-25) monitor accelerations: Present Monitor Decelerations: Absent Contraction Frequency (minutes): 3 Uterine Contraction Intensity: Moderate Category of Tracing: Reactive Status: Category l Dilation (cm): 0.5 Effacement (%): 0 Dilation: Closed Effacement: 0-30% station: -4 Position of cervix: mid PFSH Medical History (Updated 06/17/25 @ 16:30 by Edith Renae DO) Gestational diabetes mellitus (GDM) requiring insulin Kidney stone on right side Abnormal MRI of abdomen Bladder cancer (07/2019) Abnormal CT of liver (07/2019) Surgical History (Updated 11/21/24 @ 10:39 by Krista Griffin RN) [place] teeth removed (01/16/17) History of bladder surgery Anesthesia Status post tonsillectomy and adenoidectomy Status post delivery (12/27/14) Status post delivery (01/06/12) Family History Father Suicide Mother Mental health problem Bipolar 1 disorder Brother Asthma Brother Bernardo Roger syndrome Sister No problems noted. Grandfather Dementia Grandmother Breast cancer Grandfather No problems noted. 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[facility]) current occupational exposures/hazards: Yes special sajan needs: No travel history: recent (domestic only) seatbelt use: always water heater temp set < 120 deg: Yes working smoke detector in home: Yes fire extinguisher in home: Yes carbon monox detector in home: Yes firearms in home: No do you feel safe at home: Yes second hand exposure: No alcohol intake: former (rarely when not ) substance use type: marijuana (not while /) during the past year weight has: other (back to ~weight prior to last pregancy) well-balanced diet: about half the time daily servings fruits/ve-4 caffeine: Yes (single cup coffee in AM) Type(s) of exercise: walking frequency: daily duration: 30-45 minutes/day Meds Home Medications and Allergies Home Medications ?Medication ?Instructions ?Recorded ?Confirmed ?Type aspirin 81 mg tablet,delayed 81 mg PO DAILY 11/21/24 04/24/25 History release (Adult Low Dose Aspirin) vitamin-ferrous sulfate tab PO 11/21/24 04/24/25 History 27 mg iron-folic acid 0.8 mg tablet labetalol 200 mg tablet 200 mg PO BID #60 tabs 03/19/25 04/24/25 Rx blood sugar diagnostic (Blood #100 ea 04/08/25 04/24/25 Rx Glucose Test strips) blood-glucose meter (Blood Glucose #1 ea 04/08/25 04/24/25 Rx Monitoring kit) lancets #100 ea 04/08/25 04/24/25 Rx insulin NPH isoph U-100 human 100 5 unit (0.05 mL) SUBCUT QAM #15 mL 04/18/25 04/24/25 Rx unit/mL (3 mL) subcutaneous pen (Humulin N NPH U-100 Insulin KwikPen) pen needle, diabetic 32 gauge x #100 ea 04/22/25 04/24/25 Rx (TRUEplus Pen Needle) blood-glucose meter (True Metrix #1 ea 04/24/25 04/24/25 History Glucose Meter) lancets 30 gauge (TRUEplus Lancets) #100 ea 04/24/25 04/24/25 History pen needle, diabetic 31 gauge x #1,200 ea 04/24/25 04/24/25 History 3/16 (TechLITE Pen Needle) metformin 500 mg tablet 500 mg PO BIDWMEAL #60 tabs 06/09/25 Rx Allergies Allergy/AdvReac Type Severity Reaction Status Date / Time venom-honey bee (bee venom Allergy Severe SEIZURE-HAWA Verified 04/24/25 10:30 (honey bee)) H shellfish derived Allergy Intermediate Hives Verified 04/24/25 10:30 Review of Systems Constitutional Constitutional: Reports as per HPI OB Exam Vital signs Blood Pressure: 126/85 Narrative Exam Narrative: General- AAO x 3, NAD abdomen- gravid, soft nontender incision- slight tenderness over incision BSUS- vertex, active fetus, normal fluid, lower uterine segment appears intact Objective Labs Labs: Laboratory Results - last 24 hr 06/23/25 16:35 Urine Color Yellow Urine Appearance Clear Urine pH 6.0 Ur Specific [place] 1.025 Urine Protein Negative Urine Glucose (UA) Negative Urine Ketones Negative Urine Occult Blood Trace-intact Urine Nitrate Negative Urine Bilirubin Negative Urine Urobilinogen 0.2 Ur Leukocyte Esterase Negative Urine RBC 0-1/hpf Urine WBC 0-1/hpf Ur Squamous Epith Cells 5-10 /hpf H Urine Bacteria Few (2-10) H Urine Mucus 1+ H Ur Culture Indicated? Cult not indicated Vol Urine Centrifuged 10ml (spun) Assessment and Plan Assessment and Plan Assessment and Plan narrative: Patient is a 29yo @ 35w3d with painful contractions. 1. Painful contractions in setting of previous x 3 - cervix ft/th/hi per RN - contractions q 3 mins on toco-- moderate - plan to start IVF now- bolus 1L - UA sent pending - we discussed that currently FHTs reassuring and no evidnece of uterine rupture but with previous c-sections concern about prolonged painful contractions. - Will start BMTZ for steroid considering high chance of delivery prior to 37wks - Plan to monitor overnight with IVF and will allow to eat if contractions start to [place]. - if contractions persisting in the am then will discuss plan to proceed to delivery - if contractions worsening then will proceed to the OR tonight. 2. GDMA2 - on metformin 500mg BID - BG well controlled on this dose - will BMTZ will have elevated BG levels-- will give ISS as needed 3. Chronic HTN - continue labetalol 200mg BID and 100mg midday - BPs normotensive - no concern for superimposed preE at this time dispo- continue to monitor Time-Based Coding :: [TOTAL MINUTES] spent with patient and on the chart (including review of chart, obtaining history, exam, reviewing outside data, placing orders, documenting exam and treatment plan, and counseling patient) on [DATE].
[2025-06-23 17:35] VITALS: BP 141/79; PULSE 98
[2025-06-23] MEDS: LABETALOL 100 MG TABLET PO (17:35)
[2025-06-23 17:37] VITALS: BP 126/85
[2025-06-23] MEDS: BETAMETHASONE 30 MG/5 ML MDV 12 MG IM (17:37)
[2025-06-23] MEDS: LACTATED RINGERS 1,000 ML 999 ML IV (17:37)
[2025-06-23] MEDS: LACTATED RINGERS 1,000 ML 125 ML IV (18:44)
[2025-06-23 23:25] VITALS: BP 135/73; PULSE 111
[2025-06-23] MEDS: LABETALOL 100 MG TABLET 200 MG PO (23:25)
[2025-06-24 01:25] VITALS: BP 112/56; PULSE 105
[2025-06-24] MEDS: LACTATED RINGERS 1,000 ML 125 ML IV (02:16)
[2025-06-24 04:54] VITALS: BP 132/64
[2025-06-24 07:09] LABS: Add Manual Diff / Slide Review NO; Hematocrit 34.7 % (36-46); Hemoglobin 11.8 g/dL (12.0-16.0); Lymphocytes Absolute Auto 1700 /uL (1100-4500); Mean Corpuscular HGB Conc 34.0 % (30-36); Mean Corpuscular Hemoglobin 28.6 PG (26-34); Mean Corpuscular Volume 84.2 fL (80-100); Platelet Count 166 X10^3/uL (150-400)
[2025-06-24 07:21] LABS: Alanine Aminotransferase 18 IU/L (<35); Albumin 3.6 g/dL (3.5-5.0); Albumin Globulin Ratio 1.1 (1.0-2.8); Alkaline Phosphatase 90 U/L (38-126); Blood Urea Nitrogen 10 mg/dL (7-17); Calcium 9.1 mg/dL (8.4-10.2); Carbon Dioxide 15 mmol/L (22-32); Chloride 108 mmol/L (98-107); Estimated Glomerular Filt Rate > 60 mL/min (>60); Globulin 3.3 g/dL (1.7-4.1); Glucose 132 mg/dL (70-99); HEMOLYSIS < 15 (0-50); Potassium 4.1 mmol/L (3.4-5.1); Sodium 133 mmol/L (137-145); Total Protein 6.9 g/dL (6.3-8.2)
--- NOTE | 2025-06-24 08:12 | PM.OBDS.1 ---
Discharge Providers Provider Date of admission: 06/23/25 14:29 Discharge Date: 06/24/25 Primary care physician: Griffin Salcedo DO Discharge provider: Edith Renae DO Summary Hospital Course Date Patient Seen: 06/24/25 Time Patient Seen: 08:12 Diagnoses: contractions at 35wks Hospital Course: Patient is a 29yo Time Spent with Patient Time attestation: Total time spent providing and/or coordinating discharge services: Objective Labs 06/24/25 07:00 06/24/25 07:00 Labs: Laboratory Results - last 24 hr 06/23/25 06/23/25 06/24/25 16:35 21:38 03:07 WBC RBC Hgb Hct MCV MCH MCHC RDW Plt Count Neut % (Auto) Lymph % (Auto) [place] % (Auto) Eos % (Auto) Baso % (Auto) Neut # (Auto) Lymph # (Auto) [place] # (Auto) Eos # (Auto) Baso # (Auto) Sodium Potassium Chloride Carbon Dioxide BUN Creatinine Estimated GFR BUN/Creatinine Ratio Glucose POC Whole Bld Glucose 97 132 H Calcium Total Bilirubin AST ALT Alkaline Phosphatase Total Protein Albumin Globulin Albumin/Globulin Ratio Urine Color Yellow Urine Appearance Clear Urine pH 6.0 Ur Specific [place] 1.025 Urine Protein Negative Urine Glucose (UA) Negative Urine Ketones Negative Urine Occult Blood Trace-intact Urine Nitrate Negative Urine Bilirubin Negative Urine Urobilinogen 0.2 Ur Leukocyte Esterase Negative Urine RBC 0-1/hpf Urine WBC 0-1/hpf Ur Squamous Epith Cells 5-10 /hpf H Urine Bacteria Few (2-10) H Urine Mucus 1+ H Ur Culture Indicated? Cult not indicated Vol Urine Centrifuged 10ml (spun) Blood Type Antibody Screen 06/24/25 07:00 WBC 10.0 RBC 4.12 Hgb 11.8 L Hct 34.7 L MCV 84.2 MCH 28.6 MCHC 34.0 RDW 13.7 Plt Count 166 Neut % (Auto) 77.1 H Lymph % (Auto) 17.2 L Harrison % (Auto) 5.6 Eos % (Auto) 0.0 L Baso % (Auto) 0.1 Neut # (Auto) 7700 H Lymph # (Auto) 1700 [place] # (Auto) 600 Eos # (Auto) 0 Baso # (Auto) 0 Sodium 133 L Potassium 4.1 Chloride 108 H Carbon Dioxide 15 L BUN 10 Creatinine 0.58 Estimated GFR > 60 BUN/Creatinine Ratio 17.2 Glucose 132 H POC Whole Bld Glucose Calcium 9.1 Total Bilirubin 0.7 AST 24 ALT 18 Alkaline Phosphatase 90 Total Protein 6.9 Albumin 3.6 Globulin 3.3 Albumin/Globulin Ratio 1.1 Urine Color Urine Appearance Urine pH Ur Specific [place] Urine Protein Urine Glucose (UA) Urine Ketones Urine Occult Blood Urine Nitrate Urine Bilirubin Urine Urobilinogen Ur Leukocyte Esterase Urine RBC Urine WBC Ur Squamous Epith Cells Urine Bacteria Urine Mucus Ur Culture Indicated? Vol Urine Centrifuged Blood Type A Positive Antibody Screen Negative Exam Vital Signs (past 8 hours): - 06/24/25 01:25 06/24/25 04:54 Pulse Rate 105 H Blood Pressure 112/56 L 132/64 Discharge Plan Discharge Plan Patient Disposition: Home Discharge orders & Medications Prescriptions: Continued (DME) blood-glucose meter [True Metrix Glucose Meter] Misc See Rx Instructions .ROUTE .MEDSUPPLY Qty: 1 Patient Comments: use to check morning fasting Blood sugars, and 2 hours after breakfast, lunch and dinner Rx Instructions: As directed (DME) pen needle, diabetic [TechLITE Pen Needle] 31 gauge x 3/16 needle See Rx Instructions .ROUTE .MEDSUPPLY Qty: 1200 Patient Comments: [NO ORIGINAL SIG] Rx Instructions: As directed (DME) lancets [TRUEplus Lancets] 30 gauge misc See Rx Instructions .ROUTE .MEDSUPPLY Qty: 100 Patient Comments: use to check morning fasting Blood sugars, and 2 hours after breakfast, lunch and dinner Rx Instructions: As directed (DME) Blood Glucose Test Strip See Rx Instructions .ROUTE .MEDSUPPLY Qty: 100 0RF Rx Instructions: Please check am fasting BS, and 2 hours after breakfast/lunch/dinner (DME) lancets Misc See Rx Instructions .ROUTE .MEDSUPPLY Qty: 100 3RF Rx Instructions: please chk AM fasting blood sugar, and 2 hour after brkfst, lunch and dinner (DME) blood-glucose meter [Blood Glucose Monitoring] Kit See Rx Instructions .ROUTE .MEDSUPPLY Qty: 1 0RF Rx Instructions: check am fasting blood sugar, and 2 hours after breakfast, lunch and dinner. (DME) pen needle, diabetic [TRUEplus Pen Needle] 32 gauge x 5/32 needle See Rx Instructions .ROUTE .COMPLEX Qty: 100 2RF Dose Instruction: For use with insulin pen once daily Rx Instructions: For use with insulin pen once daily metformin 500 mg tablet 500 mg PO BIDWMEAL Qty: 60 4RF aspirin [Adult Low Dose Aspirin] 81 mg tablet,delayed release (DR/EC) 81 mg PO DAILY vit-ferrous sulfat-FA 27 mg iron- 0.8 mg tablet 1 tab PO DAILY labetalol 200 mg tablet 200 mg PO BID Qty: 60 3RF Follow up/Referrals: Griffin Salcedo DO [Primary Care Provider, Family Practice] Visit Report/Discharge Packet Stand Alone Forms: Patient Portal/API, Stroke Signs & Symptoms Discharge Data Primary Care Provider: Griffin Salcedo Attending Provider: Edith Renae Date/Time: 06/23/25 14:29
== END 2025-06-24 08:20 | disposition home or self-care (01) ==
PROVIDERS: Admitting Provider Obstetrics & Gynecology; PCP Family Medicine; Referring Provider Obstetrics & Gynecology; Visit Provider Obstetrics & Gynecology
DX: O09.213 Supervision of pregnancy with history of pre-term labor, third trimester (principal); O10.913 Unspecified pre-existing hypertension complicating pregnancy, third trimester; O99.213 Obesity complicating pregnancy, third trimester; E66.9 Obesity, unspecified; O24.419 Gestational diabetes mellitus in pregnancy, unspecified control; O34.219 Maternal care for unspecified type scar from previous cesarean delivery; Z3A.35 35 weeks gestation of pregnancy
CPT/HCPCS: 36415; 59025; 59050; 76815; 80053; 81001; 82962; 85025; 86850; 86900; 86901; 96360; 96361; 96372; G0378; G0379; J0702; J7120

== ENCOUNTER 2025-06-24 16:45 | Outpatient (CLI) | payer OTHER, SELFPAY ==
[2025-06-24] MEDS: BETAMETHASONE 30 MG/5 ML MDV 12 MG IM (17:22)
== END 2025-06-24 17:27 | disposition home or self-care (01) ==
LOC: LABOR 16:49 → OB 06-25 06:41
PROVIDERS: PCP Family Medicine; Referring Provider Obstetrics & Gynecology; Visit Provider Obstetrics & Gynecology
DX: O09.213 Supervision of pregnancy with history of pre-term labor, third trimester (principal); O10.913 Unspecified pre-existing hypertension complicating pregnancy, third trimester; O99.213 Obesity complicating pregnancy, third trimester; E66.9 Obesity, unspecified; O24.419 Gestational diabetes mellitus in pregnancy, unspecified control; O34.219 Maternal care for unspecified type scar from previous cesarean delivery; Z3A.35 35 weeks gestation of pregnancy
CPT/HCPCS: 59025; 96372; G0378; G0379; J0702

== ENCOUNTER 2025-06-27 09:44 | Outpatient (CLI) | payer OTHER, SELFPAY | END 2025-06-27 11:05 | disposition home or self-care (01) | LOC: LABOR 10:17 → OB 11:27 | PROVIDERS: PCP Family Medicine; Referring Provider Obstetrics & Gynecology; Visit Provider Obstetrics & Gynecology | DX: Z36.9 Encounter for antenatal screening, unspecified (principal) | CPT/HCPCS: 59025; G0378; G0379 ==

== ENCOUNTER → 2025-07-02 11:36 | Outpatient (CLI) | payer OTHER, SELFPAY ==
[2025-07-03 11:13] LABS: Strep Grp B PCR NEG for Grp B Strep
== END ==
PROVIDERS: PCP Family Medicine; Visit Provider Obstetrics & Gynecology
DX: Z36.85 Encounter for antenatal screening for Streptococcus B (principal)
CPT/HCPCS: 87653

== ENCOUNTER 2025-07-02 12:05 | Outpatient (CLI) | payer OTHER, SELFPAY | END 2025-07-02 12:46 | disposition home or self-care (01) | LOC: LABOR 12:38 → OB 13:52 | PROVIDERS: PCP Family Medicine; Referring Provider Obstetrics & Gynecology; Visit Provider Obstetrics & Gynecology | DX: O10.913 Unspecified pre-existing hypertension complicating pregnancy, third trimester (principal); O99.213 Obesity complicating pregnancy, third trimester; E66.9 Obesity, unspecified; O24.415 Gestational diabetes mellitus in pregnancy, controlled by oral hypoglycemic drugs; Z3A.36 36 weeks gestation of pregnancy | CPT/HCPCS: 59025; 87653; G0378; G0379 ==

== ENCOUNTER 2025-07-04 00:35 | Inpatient (IN) | payer OTHER, SELFPAY ==
[2025-07-04] VITALS (7 sets, daily range): BP systolic 115–140; BP diastolic 62–84; PULSE 70–86; RESP 16; TEMP 36–36.9; O2SAT 98
--- NOTE | 2025-07-04 01:00 | PM.OBHP.IH.1 ---
OB HPI Date/Time Date of admission: 07/04/25 Date Patient Seen: 07/04/25 Time Patient Seen: 01:00 History of Present Condition Chief complaint: Labor LUBNA Calculator Estimated Delivery Date Method Current WG Current Estimate 07/25/25 LMP (Certain) 37w 0d Other Estimates 07/23/25 Ultrasound #1 37w 2d Narrative: This is a 29 yo at 37w0d with rupture of membranes occurring 1 hour prior to arrival at hospital. Patient is shola with minimal pain. Good movement. complicated by hx of , GDM on metformin, cHTN on labetalol TID. care: good care Dating criteria OB: LMP confirmed by 1st trimester US Ultrasounds: normal 1st trimester US and normal mid trimester US Obstetrical complications: gestational diabetes and other (CHTN) Medical complications OB: none Indications Indication for induction OB: gestational diabetes Operative indications ( section): previous uterine surgery Preadmission Labs Last OB Lab Results: Blood Type A Positive 06/24/25, 07:00 Antibody Screen Negative 06/24/25, 07:00 Hct, (36-46) 34.7 % L 06/24/25, 07:00 Hgb, (12.0-16.0) 11.8 g/dL L 06/24/25, 07:00 Hep Bs Antigen, (NEGATIVE) Negative s/c 12/27/24, 10:42 Hepatitis C Antibody, (NEGATIVE) Negative s/c 12/27/24, 10:42 Rubella Antibody, (>15) 19.4 IU/mL 12/27/24, 10:42 VZV IgG Antibody, (Non Reactive) Reactive 12/27/24, 10:42 Glucose 1 Hr 50 gm, (76-139) 184 mg/dL H 04/07/25, 12:13 Hemoglobin A1c, (4.0-6.0) 5.1 % 12/27/24, 10:42 Group B Strep (PCR) Neg for grp b strep 07/02/25, 11:36 Genetic Screens: Cell-free DNA: Normal and Alpha-fetoprotein: Normal Prior (ies) Past Pregnancies Del. Date GA/Weeks Labor Lgth Wt Sex Route Outcome Anesthesia Place Delv Breastfeed Preg Comp Name 01/06/12 34+ 5 lb 6 oz Male live - [place] 1 month Geovanny 08/20/13 8-9 spontaneous 12/27/14 38 7 lb 10 oz Male live - full term [facility] 28 months Tim 03/21/19 4-5 spontaneous 06/21/20 4+ spontaneous 07/06/23 37.6 7 lb 13.7 oz Female live - full term [facility] Still going as of 11/21/24 [place] Delivery Date: 08/20/13 Last Updated by: Krista Griffin RN passed spontaneously, no complications Delivery Date: 03/21/19 Last Updated by: Krista Griffin RN passed spontaneously, no complications Delivery Date: 06/21/20 Last Updated by: Krista Griffin RN passed spontaneously, no complications Evaluation Evaluation Baseline heart rate: 145 Variability: Moderate (6-25) monitor accelerations: Present Monitor Decelerations: Absent Contraction Frequency (minutes): 3 Uterine Contraction Intensity: Mild Category of Tracing: Reactive Status: Category l Non-invasive Membranes Rupture Test: positive [facility] Medical History Gestational diabetes mellitus (GDM) requiring insulin Kidney stone on right side Abnormal MRI of abdomen Bladder cancer (07/2019) Abnormal CT of liver (07/2019) Surgical History (Updated 11/21/24 @ 10:39 by Krista Griffin RN) [place] teeth removed (01/16/17) History of bladder surgery Anesthesia Status post tonsillectomy and adenoidectomy Status post delivery (12/27/14) Status post delivery (01/06/12) Family History Father Suicide Mother Mental health problem Bipolar 1 disorder Brother Asthma Brother Bernardo Roger syndrome Sister No problems noted. Grandfather Dementia Grandmother Breast cancer Grandfather No problems noted. Grandmother Diabetes mellitus Hypertension History of heart disease Grandmother Breast cancer Social History marital status: unmarried,living together number of children: 3 household members: significant other, family (mother) and children lives independently: Yes caregiver/support person: Yes housing: house pets and animals: Yes (dog, cats) education level: high school occupational status: previously employed (worked as aide in memory care facility, now [employer]) current occupational exposures/hazards: Yes special sajan needs: No travel history: recent (domestic only) seatbelt use: always water heater temp set < 120 deg: Yes working smoke detector in home: Yes fire extinguisher in home: Yes carbon monox detector in home: Yes firearms in home: No do you feel safe at home: Yes second hand exposure: No alcohol intake: former (rarely when not ) substance use type: marijuana (not while /) during the past year weight has: other (back to ~weight prior to last pregancy) well-balanced diet: about half the time daily servings fruits/ve-4 caffeine: Yes (single cup coffee in AM) Type(s) of exercise: walking frequency: daily duration: 30-45 minutes/day Meds Home Medications and Allergies Home Medications ?Medication ?Instructions ?Recorded ?Confirmed ?Type aspirin 81 mg tablet,delayed 81 mg PO DAILY 11/21/24 07/04/25 History release (Adult Low Dose Aspirin) vitamin-ferrous sulfate 1 tab PO DAILY 11/21/24 07/04/25 History 27 mg iron-folic acid 0.8 mg tablet labetalol 200 mg tablet 200 mg PO BID #60 tabs 03/19/25 07/04/25 Rx blood sugar diagnostic (Blood #100 04/08/25 06/23/25 Rx Glucose Test strips) blood-glucose meter (Blood Glucose #1 04/08/25 06/23/25 Rx Monitoring kit) lancets #100 04/08/25 06/23/25 Rx pen needle, diabetic 32 gauge x #100 04/22/25 06/23/25 Rx 5/32 (TRUEplus Pen Needle) blood-glucose meter (True Metrix #1 04/24/25 06/23/25 History Glucose Meter) lancets 30 gauge (TRUEplus Lancets) #100 04/24/25 06/23/25 History pen needle, diabetic 31 gauge x #1,200 04/24/25 06/23/25 History 3/16 (TechLITE Pen Needle) metformin 500 mg tablet 500 mg PO BIDWMEAL #60 tabs 06/09/25 07/04/25 Rx Allergies Allergy/AdvReac Type Severity Reaction Status Date / Time venom-honey bee (bee venom Allergy Severe SEIZURE-HAWA Verified 07/04/25 01:14 (honey bee)) H shellfish derived Allergy Intermediate Hives Verified 07/04/25 01:14 Review of Systems Review of Systems ROS: Yes All systems reviewed with the patient and are negative except as otherwise documented Assessment and Plan Assessment and Plan Assessment and Plan narrative: This is a 29 yo here at 37w0d with rupture of membranes. complicated by GDMA1, cHTN, and hx of . GBS negative. #Rupture of Membranes #History of Amnisure positive. Will proceed with delivery. -ancef + azith in setting of ROM - counseling: It was explained to the patient that a section is a surgery to deliver the baby through an incision in the abdominal wall and uterus. All procedures can be associated with risk and unforeseen complications, which can be immediate or delayed. Risks and complications of section include, but are not limited to: infection of the uterus, pelvic organs, or skin; inadvertent injury to internal organs such as the bowel, bladder, or possibly even the baby; blood loss, transfusion, and/or life-threatening hemorrhage requiring hysterectomy; blood clots in the legs, pelvic organs, or lungs; adverse reaction to medications or anesthesia during surgery; development of placenta accreta spectrum in a subsequent ; and increased risk of section in a subsequent . #GDMA1 Currently on metformin. -discontinue metformin following delivery, no further blood glucose checks needed #Chronic Hypertension Currently taking labetalol 200 mg morning, 100 mg midday, 200 mg evening -continue meds and adjust as needed Time-Based Coding :: 45 minutes spent with patient and on the chart (including review of chart, obtaining history, exam, reviewing outside data, placing orders, documenting exam and treatment plan, and counseling patient) on 07/04/2025.
[2025-07-04 02:00] LABS: Add Manual Diff / Slide Review NO; Hematocrit 39.1 % (36-46); Hemoglobin 13.0 g/dL (12.0-16.0); Lymphocytes Absolute Auto 3200 /uL (1100-4500); Mean Corpuscular HGB Conc 33.4 % (30-36); Mean Corpuscular Hemoglobin 28.0 PG (26-34); Mean Corpuscular Volume 84.0 fL (80-100); Platelet Count 176 X10^3/uL (150-400)
[2025-07-04] MEDS: AZITHROMYCIN 500 MG in DEXTROSE 5% IN WATER 250 ML 250 MG IV (02:45)
--- NOTE | 2025-07-04 03:01 | SUR.OPER ---
Supine on padded OR bed, head on pillow, arms secured on padded arm boards at <90 degrees abduction, legs uncrossed, safety belt at thigh, bump placed under right hip.
--- NOTE | 2025-07-04 03:22 | SUR.OPER ---
heart rate: 140 Viable baby boy born at 0312 Placenta @ 0315 Apgar1-8 Apgar5- 9
[2025-07-04] MEDS: TRANEXAMIC ACID 1,000 MG in SODIUM CHLORIDE 0.9% 100 ML 200 MG IV (03:25)
--- NOTE | 2025-07-04 04:06 | PM.OBCS.1 ---
Operative Date/Time/Diagnoses Date of procedure: 07/04/25 Time of procedure: 03:00 Pre-op diagnosis: Hx of delivery; term ; rupture of membranes Post-op diagnosis: same Procedure & Clinicians Procedure: Repeat delivery Same procedure(s) as scheduled: Yes Indications: hx of , rupture of membranes Surgeon: Di Aaron Click Yes if Unassisted: No Store Gift Wrap Associate: Leslye Plaaz Reason for Store Gift Wrap Associate: repeat Anesthesia Type: Spinal Operative Notes Findings: Normal uterus, ovaries, and tubes Closure Type: primary Applied: Catheter Estimated Blood Loss (mL): 600 Blood products transfused: none Procedure in detail: OPERATIVE COURSE: The patient was taken to the operating room where spinal anesthesia was placed. She was then prepared and draped in the normal sterile fashion in the dorsal supine position with a leftward tilt. Anesthesia was tested and found to be adequate. A Pfannensteil skin incision was then made with the scalpel and carried through to the underlying layer of fascia with the bovie and the scalpel. The fascia was incised in the midline and the incision extended laterally with the Bovie, scalpel and manual traction. The superior aspect of the fascial incision was then grasped with Dakota clamps, elevated with the help of the psychiatric technician assistant, and the underlying rectus muscles dissected off bluntly and sharply where needed. Attention was then turned to the inferior aspect of the incision which, in a similar fashion, was grasped, tented up with Dakota clamps, and the rectus muscle dissected off bluntly and sharply with Solorio scissors. The rectus muscles were then in the midline, and the peritoneum was identified and entered sharply. The peritoneal incision was then extended with good visualization of the bladder. Retraction was provided by the psychiatric technician assistant. The vesicouterine peritoneum identified, grasped with pick-ups and entered sharply with the Metzenbaum scissors. The incision was then extended laterally and the bladder flap created digitally. The Vish retractor was placed and the lower uterine segment incised in a transverse fashion with the scalpel, with the psychiatric technician assistant providing suction. The uterine incision was then extended superolaterally by pulling superolaterally on both sides. Membranes were ruptured and fluid was clear. The bladder blade was removed the 's head was flexed out of OA position and delivered atraumatically, with fundal pressure by the psychiatric technician assistant. The nose and mouth were suctioned with bulb suction and the cord was clamped and cut. The was handed off to the waiting nursing staff. The placenta was then delivered with gentle cord traction. The uterus was then cleared of all clots and debris. The uterine incision was repaired with 0 vicryl in a running, locked fashion. A second layer of 0 monocryl was used. There was ongoing oozing from the cut edges of the hysterotomy that were cauterized with the bovie. Perclot was placed. Ongoing oozing occurred and TXA was given. Additional bovie use yielded more appropriate hemostasis. Another round of perclot was placed. The gutters were cleared of all clots. Hysterotomy was investigated and found to be hemostatic. The fascia was reapproximated with 0 vicryl in a running fashion. The subcutaneous tissue was reapproximated with 3-0 vicryl. The skin was closed with 3-0 monocryl. The psychiatric technician assistant helped with retraction during closures. SPONGE AND NEEDLE COUNTS: Correct x3. DRESSING: Skin glue; telfa, tape ANTICOAGULATION: SCDs applied prior to Surgery Preop antibiotics given (see MAR). The patient was taken to recovery room having tolerated procedure well. Complications: none [place] Baby 1: Delivery Date: 07/04/25 Delivery Time: 03:12 Infant Gender: Male Presentation: vertex Position: Right Occiput Anterior Placental Delivery Description: Expressed Cord Vessel Description: 3 Vessels score (1 min): 8 score (5 min): 9 weight: 8 lb 1 oz Post-operative Condition: stable Disposition: PACU Aftercare: routine postop
[2025-07-04] MEDS: ACETAMINOPHEN IV 1,000 MG/100 ML VIAL 400 MG IV (04:21)
[2025-07-04] MEDS: ONDANSETRON 4 MG/2 ML INJ IV (08:47)
[2025-07-04] MEDS: LABETALOL 100 MG TABLET 200 MG PO (08:50)
[2025-07-04] MEDS: KETOROLAC 30 MG/ML VIAL IV ×3 (11:36→23:10)
[2025-07-04] MEDS: ACETAMINOPHEN 325 MG TABLET 650 MG PO ×3 (11:38→23:10)
[2025-07-04] MEDS: DOCUSATE 100 MG CAPSULE PO (11:40)
[2025-07-04] MEDS: PRENATAL VIT,CALC/IRON/FOLIC 1 TABLET 1 TAB PO (11:41)
[2025-07-05] MEDS: ACETAMINOPHEN 325 MG TABLET 650 MG PO ×2 (05:00→10:49)
[2025-07-05] MEDS: IBUPROFEN 600 MG TABLET PO ×2 (05:00→10:49)
[2025-07-05 06:23] LABS: Add Manual Diff / Slide Review NO; Hematocrit 30.0 % (36-46); Hemoglobin 10.4 g/dL (12.0-16.0); Lymphocytes Absolute Auto 2800 /uL (1100-4500); Mean Corpuscular HGB Conc 34.6 % (30-36); Mean Corpuscular Hemoglobin 29.1 PG (26-34); Mean Corpuscular Volume 84.0 fL (80-100); Platelet Count 147 X10^3/uL (150-400)
[2025-07-05] MEDS: DOCUSATE 100 MG CAPSULE PO (10:50)
[2025-07-05] MEDS: PRENATAL VIT,CALC/IRON/FOLIC 1 TABLET 1 TAB PO (10:50)
--- NOTE | 2025-07-05 11:42 | PM.OBDS.1 ---
Discharge Providers Provider Date of admission: 07/04/25 00:35 Discharge Date: 07/05/25 Primary care physician: Griffin Salcedo DO Consults: 07/04/25 04:14 Consult to Vice President Biostatistics Routine Comment: 07/04/25 04:26 Consult to Vice President Biostatistics Routine Comment: Discharge provider: Edith Renae DO Summary Hospital Course Date Patient Seen: 07/05/25 Time Patient Seen: 11:42 Diagnoses: Repeat section Spontaneous rupture of membranes Hospital Course: Patient is a 29yo @ 37wks presented to L&D with leaking of fliud on 07/04. She was admitted to L&D and proceeded to repeat . Patient had an uncomplicated repeat and course. complicated by HTN and GDMA2. Paitent will be discharged home on her antihypertensive regimen and will plan for a 2hr GTT at her 6wk visit. Paitent scheduled for 1wk follow up for postop check and BP check in clinic. Peripartum Data Infant Delivery Method: Section Procedures: Repeat section Spinal anesthesia complications: none Status at Discharge Cognitive/behavioral status at discharge: oriented Functional status at discharge: independent ambulation Overall status at discharge: patient is progressing back to baseline Time Spent with Patient Time attestation: Total time spent providing and/or coordinating discharge services: Time spent: Less than 30 minutes Objective Labs 07/05/25 06:10 Labs: Laboratory Results - last 24 hr 07/05/25 06:10 WBC 9.7 RBC 3.57 L Hgb 10.4 L Hct 30.0 L MCV 84.0 MCH 29.1 MCHC 34.6 RDW 14.0 Plt Count 147 L Neut % (Auto) 60.6 Lymph % (Auto) 29.3 Pope % (Auto) 9.2 Eos % (Auto) 0.7 L Baso % (Auto) 0.2 Neut # (Auto) 5900 Lymph # (Auto) 2800 Pope # (Auto) 900 Eos # (Auto) 100 Baso # (Auto) 0 Exam Vital Signs (past 8 hours): Oxygen Delivery Method Room Air Vital signs stable, BP normotensive Narrative Exam Narrative: General- AAO x3, NAD lungs- unlabored respirations abdomen- soft, nondistended incision- skin intact, no drainage or erythema minimal lochia LE- trace edema Discharge Plan Discharge Plan Patient Disposition: Home Discharge orders & Medications Prescriptions: New oxycodone 5 mg Tablet 5 mg PO Q4H PRN (Reason: Pain, Moderate (4-6)) 7 Days Qty: 10 0RF Continued vit-ferrous sulfat-FA 27 mg iron- 0.8 mg tablet 1 tab PO DAILY labetalol 200 mg tablet 200 mg PO BID Qty: 60 3RF Discontinued (DME) blood-glucose meter [True Metrix Glucose Meter] Misc See Rx Instructions .ROUTE .MEDSUPPLY Qty: 1 Patient Comments: use to check morning fasting Blood sugars, and 2 hours after breakfast, lunch and dinner Rx Instructions: As directed (DME) pen needle, diabetic [TechLITE Pen Needle] 31 gauge x 3/16 needle See Rx Instructions .ROUTE .MEDSUPPLY Qty: 1200 Patient Comments: [NO ORIGINAL SIG] Rx Instructions: As directed (DME) lancets [TRUEplus Lancets] 30 gauge misc See Rx Instructions .ROUTE .MEDSUPPLY Qty: 100 Patient Comments: use to check morning fasting Blood sugars, and 2 hours after breakfast, lunch and dinner Rx Instructions: As directed (DME) Blood Glucose Test Strip See Rx Instructions .ROUTE .MEDSUPPLY Qty: 100 0RF Rx Instructions: Please check am fasting BS, and 2 hours after breakfast/lunch/dinner (DME) lancets Misc See Rx Instructions .ROUTE .MEDSUPPLY Qty: 100 3RF Rx Instructions: please chk AM fasting blood sugar, and 2 hour after brkfst, lunch and dinner (DME) blood-glucose meter [Blood Glucose Monitoring] Kit See Rx Instructions .ROUTE .MEDSUPPLY Qty: 1 0RF Rx Instructions: check am fasting blood sugar, and 2 hours after breakfast, lunch and dinner. (DME) pen needle, diabetic [TRUEplus Pen Needle] 32 gauge x 5/32 needle See Rx Instructions .ROUTE .COMPLEX Qty: 100 2RF Dose Instruction: For use with insulin pen once daily Rx Instructions: For use with insulin pen once daily metformin 500 mg tablet 500 mg PO BIDWMEAL Qty: 60 4RF aspirin [Adult Low Dose Aspirin] 81 mg tablet,delayed release (DR/EC) 81 mg PO DAILY Follow up/Referrals: Griffin Salcedo DO [Primary Care Provider, Family Practice] Diet/Activity/Treatments Diet: Regular Skin/Wound/Dressing Care Report to your healthcare provider any signs of infection, such as:: chills, fever, increased pain, unusual drainage and unusual redness Visit Report/Discharge Packet Stand Alone Forms: Discharge: Care, Patient Portal/API, Stroke Signs & Symptoms Discharge Data Primary Care Provider: Griffin Salcedo
[2025-07-05 13:06] VITALS: BP 115/73; PULSE 70; RESP 16; TEMP 36
== END 2025-07-05 12:10 | disposition home or self-care (01) | DRG 540 ==
PROVIDERS: Admitting Provider Student in an Organized Health Care Education/Training Program; PCP Family Medicine; Referring Provider Family Medicine; Visit Provider Student in an Organized Health Care Education/Training Program
PROC: 10D00Z1 Extraction of Products of Conception, Low, Open Approach (ICD-10-PCS; CPT 59514; principal; 2025-07-04 02:00)
DX: O34.211 Maternal care for low transverse scar from previous cesarean delivery (principal); O24.425 Gestational diabetes mellitus in childbirth, controlled by oral hypoglycemic drugs; O10.92 Unspecified pre-existing hypertension complicating childbirth; Z3A.37 37 weeks gestation of pregnancy; Z37.0 Single live birth; Z67.10 Type A blood, Rh positive; O42.02 Full-term premature rupture of membranes, onset of labor within 24 hours of rupture
CPT/HCPCS: 36415; 59050; 84112; 85025; 86850; 86900; 86901; G0379; J0131; J0689; J1100; J1885; J2274; J2405; J7050; J7060